=== PATIENT | male | born 1970 | race Caucasian/White ===

== ENCOUNTER 2016-08-14 10:41 | Emergency (ER) | payer MEDICARE, OTHER ==
[2016-08-14 11:31] VITALS: TEMP 97.4
--- NOTE | 2016-08-14 11:56 | ED ---
General Adult HPI - General Chief complaint: Extremity Injury, Lower Stated complaint: Fell/hip injury Time Seen by Provider: 08/14/16 11:35 Source: patient, family, RN notes reviewed Mode of arrival: wheelchair Limitations: no limitations - History of Present Illness Initial comments: Chief complaint and history of present illness is a 46-year-old male who is here with his . Patient reports approximately 10 days ago while at home is standing on a chair. He fell off landing on the cement floor. Complains of pain to his left hip area. And sciatic type pain that became progressively worse over the past week. Patient reports she did go to [facility] days ago. He told them that he had been told that he needed to have back surgery which he never did. They suggested following up the chronic pain clinic. He was placed on [place] which caused him to vomit. - Related Data Home Medications Medication Instructions Recorded Confirmed Insulin Aspart [NovoLOG] 10 unit SQ AC-TID 02/19/15 08/14/16 Insulin Glargine [Lantus] 50 unit SQ HS 02/19/15 08/14/16 Gabapentin [Neurontin] 800 mg PO TID 02/01/16 08/14/16 Ibuprofen [Motrin] 800 mg PO Q8HR 02/01/16 08/14/16 Enalapril Maleate [Vasotec] 20 mg PO BID 02/18/16 08/14/16 Albuterol Inhaler [Ventolin Hfa 1 - 2 puff INHALATION RT-Q6H PRN 08/14/16 Inhaler] Tiotropium [place] [Spiriva] 1 cap INHALATION RT-DAILY 08/14/16 08/14/16 Previous Rx's Medication Instructions Recorded Acetaminophen-Codeine 300-30mg 1 tab PO Q4H PRN #20 tablet 08/14/16 [Tylenol #3] Ondansetron Odt [Zofran ODT] 4 mg PO Q8HR PRN #5 tab 08/14/16 methylPREDNISolone Dose Pack 4 mg PO DIRECTED #21 package 08/14/16 [Medrol Dose Pack] Allergies Allergy/AdvReac Type Severity Reaction Status Date / Time Sulfa (Sulfonamide Allergy Rash/Hives Verified 08/14/16 13:03 Antibiotics) hydrocodone [From [place]] AdvReac Nausea & Verified 08/14/16 13:03 Vomiting Review of Systems ROS Statement: Those systems with pertinent positive or pertinent negative responses have been documented in the HPI. Review of systems no head ache or visual acuity changes no neck pain no upper body pain. He has discomfort to the left hip area. Complains of left sciatic type distribution. Denies any significant low back pain though he has had chronic back pain. And used to have flares of right sciatic pain. Patient denies any head injury at the time of the fall. Otherwise no nausea no vomiting no dysfunction no foot drop. No complaints of any weakness or inability control stool or urine. All systems are reviewed Past medical problems significant for angina, insulin-dependent diabetes mellitus, and hypertension. The patient's surgeries include umbilical hernia repair, cervical fusion, ingrown toenail. Family history significant for cancers and include brain, colon and breast. Patient reports his father age 40 colon cancer. Patient was strongly encouraged to have a colonoscopy for evaluation as soon as he possibly can. He is to arrange through his family doctor. Increase incidence of family related cancers discussed with the patient , he states he is aware of this. ALLERGY sulfa. Encouraged not to smoke. ROS Other: All systems not noted in ROS Statement are negative. Past Medical History Past Medical History: Chest Pain / Angina, Diabetes Mellitus, Hypertension History of Any Multi-Drug Resistant Organisms: None Reported Past Surgical History: Hernia Repair, Orthopedic Surgery Additional Past Surgical History / Comment(s): toe surg (ingrown toenails removed on bilaeral big toes, cervical fusion Past Anesthesia/Blood Transfusion Reactions: No Reported Reaction Past Psychological History: Anxiety, Bipolar Additional Psychological History / Comment(s): pt. states he used to be on buspar for anxiety but has stopped taking it and stopped seeing his psychiatrist Smoking Status: Current every day smoker Past Alcohol Use History: Occasional Past Drug Use History: None Reported - Past Family History Father Family Medical History: Cancer Additional Family Medical History / Comment(s): colon cancer Mother Family Medical History: Cancer Additional Family Medical History / Comment(s): brain cancer Brother(s) Family Medical History: Diabetes Mellitus Additional Family Medical History / Comment(s): pt. states his brother from complications related to diabetes Sister(s) Family Medical History: Cancer Additional Family Medical History / Comment(s): pts. younger sister has breast cancer General Exam - General Exam Comments Initial Comments: General: The patient is awake and alert, complaining of pain to his left hip area, caused by falling off a chair over 10 days ago. Also some left-sided sciatic type distribution lateral left thigh. Vital signs show temperature 97.4 pulse 92 respiratory rate 18 pulse ox 99% room air blood pressure 124/84. Minimally elevated systolic diastolic noted. Patient will follow-up with his family physician. Eye: Pupils are equal, round and reactive to light, extra-ocular movements are intact ; there is normal conjunctiva bilaterally. No signs of icterus. Neck: The neck is supple, there is no tenderness Cardiovascular: There is a regular rate and rhythm. No murmur, rub or gallop is appreciated. Respiratory: Lungs are clear to auscultation, respirations are non-labored, breath sounds are equal. No wheezes, stridor, rales, or rhonchi. Gastrointestinal: Soft, non-distended, non-tender abdomen without masses or organomegaly noted. There is no rebound or guarding present. No CVA tenderness. Bowel sounds are unremarkable. Surgical scar for umbilical hernia repair noted. Nontender Back: There is no tenderness to palpation in the midline. There is no obvious deformity. No rashes noted. Past history of chronic low back pain. Today he has discomfort sciatic type distribution down the lateral left leg. Also left hip pain. Palpation of the lumbar spine negative for any pain. Musculoskeletal: Pain to his left hip area. No bruising noted. Range of motion is decreased secondary to pain. Patient fell from a chair 10 days ago at his home. Neurovascular status of the foot intact. No pain to the toes ankle or knee. Complains discomfort radiates down the lateral aspect of his left leg. Neurological: No focal or lateralizing findings. History of right sciatica which is not bothering him now. He does have sciatic distribution to the lateral aspect with discomfort left thigh area. No complaint of any numbness or tingling. No foot drop. No complaint of loss of control of stool. Able to urinate without difficulty. Limitations: no limitations Course Vital Signs 08/14/16 08/14/16 11:29 12:51 Temperature 97.4 F L Pulse Rate 92 74 Respiratory 18 16 Rate Blood Pressure 124/84 131/77 O2 Sat by Pulse 99 100 Oximetry Medical Decision Making - Medical Decision Making X-ray of the left hip was done and reviewed by radiologist his impression is no fracture dislocation is evident. As read by Dr. Tolliver X-ray of the lumbar spine were done and reviewed radiologist his impression is that there is no significant interval change. Bone mineralization, vertebral body height is maintained. Spondylolysis present bilaterally at L4, there is no anterolisthesis grade 1 L4-L5. Retrolisthesis grade 1 L5-S1. Loss of disc height present L4-L5 and L5-S1. Sclerosis present at the posterior elements compatible with facet arthropathy. 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 As read by Dr. Tolliver The patient be placed on Medrol Dosepak and Tylenol threes. He states the Motrin is not helping hydrocodone makes him vomit. He will also be given a prescription for Zofran told to take pills with food. Advised follow-up with his family physician. And reminded to get a colonoscopy because a strong family histor of colon cancer. Disposition Clinical Impression: Left sided sciatica, Hip pain, left Disposition: HOME SELF-CARE Condition: Stable Instructions: Lumbar Radiculopathy (ED), Sciatica (ED), Lower Back Exercises ( ED), Hip Pain (ED) Additional Instructions: Take a Medrol Dosepak, Tylenol threes for pain, Zofran for nausea and take with food. Follow-up family physician and get a colonoscopy because a strong family history of colon cancer. Prescriptions: Acetaminophen-Codeine 300-30mg [Tylenol #3] 1 tab PO Q4H PRN #20 tablet PRN Reason: Pain Ondansetron Odt [Zofran ODT] 4 mg PO Q8HR PRN #5 tab PRN Reason: Nausea methylPREDNISolone Dose Pack [Medrol Dose Pack] 4 mg PO DIRECTED #21 package Time of Disposition: 13:26
--- NOTE | 2016-08-14 12:41 | XR ---
Left hip HISTORY: Trauma and pain 2 views of the left hip No comparisons Bone mineralization, joint spaces and alignment are maintained IMPRESSION: No fracture or dislocation is evident.
--- NOTE | 2016-08-14 12:49 | XR ---
Lumbosacral spine HISTORY: Trauma, back pain 5 views of the lumbosacral spine correlated to previous exam 17 Nov 2015 There is no significant interval change. Bone mineralization, vertebral body height is maintained. Sp ondylolysis present bilaterally at L4. There is an anterolisthesis grade 1 L4-5. Retrolisthesis grade 1 L5-S1. Loss of disc height present at L4-5, L5-S1. Sclerosis present in the posterior elements com patible with facet arthropathy. IMPRESSION: Spondylolysis bilaterally at L4. Degenerative disc disease.
[2016-08-14 12:52] VITALS: BP 131/77; PULSE 74; RESP 16
== END 2016-08-14 14:08 | disposition home or self-care (01) ==
LOC: EC 10:41
DX: M54.32 Sciatica, left side (principal); M25.552 Pain in left hip; E11.9 Type 2 diabetes mellitus without complications; I10 Essential (primary) hypertension; Z79.4 Long term (current) use of insulin; Z79.899 Other long term (current) drug therapy; Z88.5 Allergy status to narcotic agent; Z88.2 Allergy status to sulfonamides; F17.200 Nicotine dependence, unspecified, uncomplicated; W07.XXXA Fall from chair, initial encounter; Y93.89 Activity, other specified; Y92.009 Unspecified place in unspecified non-institutional (private) residence as the place of occurrence of the external cause; Z80.0 Family history of malignant neoplasm of digestive organs
CPT/HCPCS: 72110; 73502; 99283

== ENCOUNTER → 2016-09-08 | Outpatient (CLI) | payer MEDICARE, OTHER ==
[2016-09-08 11:29] LABS: Blood Urea Nitrogen 11 mg/dL (9-20); Non-African American GFR(MDRD) >60 (>60 ml/min/1.73 sqM)
--- NOTE | 2016-09-08 18:33 | MR ---
EXAMINATION TYPE: MR lumbar spine wo/w con DATE OF EXAM: 09/08/2016 12:20 PM COMPARISON: NONE HISTORY: 46-year-old male with lumbago, low back pain. Technique: Multiplanar, multisequence images of the lumbar spine were obtained before and after admin istration of 15 mL intravenous MultiHance gadolinium contrast. FINDINGS: Vertebral body heights are preserved. No suspicious bone marrow replacement. Conus medullaris is normal. There is degenerative disc disease at L4-L5 and L5-S1 characterized by mild disc space narrowing, dis c desiccation, diffuse disc bulging. Posterior annular fissure at L5-S1. There are bilateral pars interarticularis defects at L4 with a prominent grade 1 L4-L5 anterolisthesi s. Otherwise, alignment is maintained. From T12 through L2 levels, no spinal canal or neuroforaminal stenosis. At L2-L3, there is mild bulging disc minimally encroaching onto the inferior neuroforamen on the left . No spinal canal stenosis. At L3-L4, there is mild bulging disc encroaching onto the inferior bilateral neural foramina. No spin al canal stenosis. At L4-L5, there is bilateral pars defects at L4 with grade 1 anterolisthesis and hypertrophic facet a rthropathy and a 1 cm synovial cyst posteriorly on the right and 4 mm on the left.. Changes result in moderate bilateral neuroforaminal stenosis with possible impingement of the exiting L4 nerve roots. At L5-S1, there is a central disc protrusion with posterior annular fissure and mild facet degenerati ve change. This material closely approaches the traversing right S1 nerve root. No significant spinal canal or neuroforaminal stenosis. There is no suspicious enhancement within the spinal canal. Enhancement of a thin filum terminale is of uncertain clinical significance. No prevertebral or paravertebral soft tissue abnormality. IMPRESSION: 1. Bilateral L4 pars defects with prominent grade 1 anterolisthesis at L4-L5. 2. Marked hypertrophic facet arthropathy at L4-L5. These changes contribute to moderate bilateral channing roforaminal stenosis at this level with possible impingement of the exiting L4 nerve roots. No spinal canal stenosis. 3. Degenerative disc disease at both L4-L5 and L5-S1. There is a small central disc herniation at L5- S1 with an annular fissure.
== END ==
LOC: RADMRIMAIN 10:46
PROVIDERS: ATTEND Family Medicine
DX: M99.73 Connective tissue and disc stenosis of intervertebral foramina of lumbar region (principal); M43.16 Spondylolisthesis, lumbar region; M51.17 Intervertebral disc disorders with radiculopathy, lumbosacral region; M46.86 Other specified inflammatory spondylopathies, lumbar region; E11.9 Type 2 diabetes mellitus without complications
CPT/HCPCS: 82565; 84520; 72158; A9577

== ENCOUNTER → 2016-10-02 | Outpatient (CLI) | payer MEDICARE, OTHER ==
[2016-09-27 10:08] VITALS: BMI 25.1
[2016-10-02 13:37] VITALS: BP 135/87; PULSE 97; RESP 18; TEMP 98.2
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
== END ==
LOC: PNWHC3 13:08
PROVIDERS: ATTEND Specialist
DX: M51.36 Other intervertebral disc degeneration, lumbar region (principal); M47.816 Spondylosis without myelopathy or radiculopathy, lumbar region; M46.86 Other specified inflammatory spondylopathies, lumbar region; E11.40 Type 2 diabetes mellitus with diabetic neuropathy, unspecified; I20.9 Angina pectoris, unspecified; J44.9 Chronic obstructive pulmonary disease, unspecified; I10 Essential (primary) hypertension; F41.9 Anxiety disorder, unspecified; F31.9 Bipolar disorder, unspecified; Z87.891 Personal history of nicotine dependence; Z79.4 Long term (current) use of insulin; Z79.899 Other long term (current) drug therapy; Z88.2 Allergy status to sulfonamides
CPT/HCPCS: 80307 ×2; G0463; 99211

== ENCOUNTER 2016-11-07 05:58 | Day surgery (SDC) | payer SELFPAY ==
[2016-11-06 08:48] VITALS: BMI 24.3
[2016-11-07 06:31] VITALS: TEMP 98.2
[2016-11-07] MEDS ORDERED: LACTATED RINGERS 1,000 ML IV ONE (06:41)
[2016-11-07] MEDS ORDERED: LIDOCAINE 1% 20 ML VIAL (10MG/ML) FOR IV START INTRADERMA ONE (06:41)
[2016-11-07 06:57] LABS: Glucose,Whole Blood 100 mg/dL (75-99)
[2016-11-07] MEDS ORDERED: fentaNYL (PF) 50 MCG/ML 2 ML AMP ONE (07:05)
[2016-11-07] MEDS ORDERED: MIDAZOLAM 2 MG/2 ML VIAL ONE (07:05)
[2016-11-07] MEDS ORDERED: BUPIVACAINE (PF) 0.5% 30 ML VIAL ONE (07:05)
[2016-11-07] MEDS ORDERED: LACTATED RINGERS 1,000 ML IV SCH (07:15)
--- NOTE | 2016-11-07 07:33 | P.PCN ---
Date of Procedure: 11/07/16 Preoperative Diagnosis: Lumbar spondylosis without myelopathy Postoperative Diagnosis: Same as above Procedure(s) Performed: Bilateral lumbar medial branch block under fluoroscopic guidance Anesthesia: other (Moderate sedation with 2 mg of Versed and 100 g of IV fentanyl) Surgeon: Reed Price Pathology: none sent Condition: stable Disposition: PACU Description of Procedure: The patient was seen in preop holding area consent was obtained then he was brought into the procedure room and placed in prone position. Skin was prepped with ChloraPrep and draped in a sterile manner. Lidocaine 1% was used to numb the skin up at the target points that were chosen as follows: For the L5-S1 level which corresponds to the dorsal ramus of L5 the target points were the superior medial aspect of the sacral ala on each side of the spine on the AP view of fluoroscopy. For the L2,L3 and L4 medial branches the target points were at the connection between the transverse process and the superior articular process of L3,L4 and L5 vertebra respectively on the oblique view of fluoroscopy. I used 22-gauge 3-1/2 inch Quincke spinal needle for this procedure and after bone at the target points mentioned above I injected Marcaine 0.5% to 1 mL at each level. Patient tolerated procedure well. Steroids were not given during this procedure.
[2016-11-07] MEDS ORDERED: IV FLUID CONTINUATION 1,000 ML IV ONE (07:36)
[2016-11-07 07:39] VITALS: RESP 16
[2016-11-07 07:46] LABS: Glucose,Whole Blood 104 mg/dL (75-99)
[2016-11-07 07:54] VITALS: BP 126/93; PULSE 81
--- NOTE | 2016-11-08 10:07 | FL ---
EXAMINATION TYPE: FL guided pain mgmt statistic DATE OF EXAM: 11/07/2016 7:34 AM HISTORY: Flouroscopy time 7 seconds of fluoroscopy provided. IMPRESSION: 1. Fluoroscopy time.
== END 2016-11-07 08:10 | disposition home or self-care (01) ==
LOC: ORPAIN 05:58
PROVIDERS: ATTEND Anesthesiology
DX: M47.816 Spondylosis without myelopathy or radiculopathy, lumbar region (principal); Z88.5 Allergy status to narcotic agent; Z88.2 Allergy status to sulfonamides
CPT/HCPCS: 64493; 64494; 64495; 99152; J2250; J3010

== ENCOUNTER 2016-11-23 07:28 | Day surgery (SDC) | payer MEDICARE, OTHER ==
[2016-11-22 10:09] VITALS: BMI 24.3
[~2016-11-23 07:28] MED LIST: LACTATED RINGERS 1,000 ML IV SCH
[2016-11-23 08:01] VITALS: RESP 16; TEMP 98
[2016-11-23] MEDS ORDERED: LIDOCAINE 1% 20 ML VIAL (10MG/ML) FOR IV START INTRADERMA ONE (08:08)
[2016-11-23] MEDS ORDERED: MIDAZOLAM 2 MG/2 ML VIAL ONE (08:12)
[2016-11-23] MEDS ORDERED: BUPIVACAINE (PF) 0.5% 30 ML VIAL ONE (08:12)
[2016-11-23] MEDS ORDERED: TRIAMCINOLONE ACETONIDE 40 MG/ML 1 ML VIAL ONE (08:12)
[2016-11-23] MEDS ORDERED: fentaNYL (PF) 50 MCG/ML 2 ML AMP ONE (08:12)
--- NOTE | 2016-11-23 08:32 | P.PCN ---
Date of Procedure: 11/23/16 Procedure(s) Performed: PREOPERATIVE DIAGNOSIS : 1- Lumbar spondylosis with Facet Arthropathy without myelopathy . 2- Lumber degenerative disc disease POSTOPERATIVE DIAGNOSIS: 1- Lumbar spondylosis with Facet Arthropathy without myelopathy . 2- Lumber degenerative disc disease PROCEDURE: Diagnostic bilateral L3 -4 , L4 -5 , and L5-S1 medial branch block under fluoroscopy #2 ANESTHESIA: Local with 1% lidocaine 6 ml ; IV sedation with Versed 2 mg and Fentanyl 100 mcg. EBL: Minimal COMPLICATION: None. IV FLUIDS: 100 mL of normal saline. PROCEDURE INDICATION: Chronic low back pain secondary to Facet arthropathy unresponsive to conservative treatment. PROCEDURE DESCRIPTION: the patient was seen and identified in the preop holding area , risks and benefits and possible complications of the procedure and alternative were discussed with the patient, and the patient agreed to proceed with the procedure and signed the consent IV was started and vital signs monitored during the procedure and fluoroscopy was used to maximize the benefit and accuracy of the needle placement, and sedation was given to decrease patient anxiety, patient was taken to the procedure room and placed in prone position vital signs monitored in the back prepped with chlorhexidine X3 then under strict sterile technique using a right oblique fluoroscopy ,the junction of the transverse process and the superior articulating process of the right L3- 4 , L4- 5, and L5-S1 vertebra which corresponding to the fluoroscopy image of the eye of the Scott dog on the block side for the medial branches and subsequently , after local infiltration of skin and subcu tissuies with lidocaine 1% one mL at each level ,then 22- gauge Quincke-type needles , 3 needle was used , each one of them placed at the junction of the base of the transverse process and the superior articular process at the appropriate level, and the needle was advanced until the periosteum contacted, needle placement confirmed with AP oblique and lateral view and after appropriate needle placement confirmed, and after negative aspiration for heme and CSF and there was no paresthesia 1-1/2 mL of Marcaine 0.5% mixed with 20 mg Kenalog , then half mL injected at each level after negative aspiration the needle subsequently removed and the same procedure repeated for the left side at left side at L3-4, L4- 5 and L5-S1 levels. At the end of the procedure and the needles removed and a bandage applied after the skin was cleaned the cleaning solution patient taken to recovery room in stable condition and monitors in the recovery room for 20-30 minutes and discharged home in stable condition after discharge criteria met and patient will follow up with the pain clinic in 2-4 weeks
[2016-11-23] MEDS ORDERED: IV FLUID CONTINUATION 1,000 ML IV ONE (08:38)
--- NOTE | 2016-11-23 08:42 | FL ---
EXAMINATION TYPE: FL guided pain mgmt statistic DATE OF EXAM: 11/23/2016 8:36 AM HISTORY: Flouroscopy time 9 seconds of fluoroscopy provided. IMPRESSION: 1. Fluoroscopy time.
[2016-11-23 08:55] VITALS: BP 122/80; PULSE 80
[2016-11-25 04:45] LABS: Glucose,Whole Blood 91 mg/dL (75-99)
== END 2016-11-23 09:09 | disposition home or self-care (01) ==
LOC: ORPAIN 07:28
PROVIDERS: ATTEND Specialist
DX: G89.29 Other chronic pain (principal); M51.36 Other intervertebral disc degeneration, lumbar region; M47.816 Spondylosis without myelopathy or radiculopathy, lumbar region; M46.96 Unspecified inflammatory spondylopathy, lumbar region; I10 Essential (primary) hypertension; E11.9 Type 2 diabetes mellitus without complications; Z88.2 Allergy status to sulfonamides; Z88.5 Allergy status to narcotic agent
CPT/HCPCS: 64493; 64494; 64495; 99152; J2250; J3301; J3010

== ENCOUNTER → 2016-12-18 | Outpatient (CLI) | payer OTHER ==
[2016-12-18 14:05] VITALS: BP 123/88; PULSE 82; RESP 16; TEMP 98.3
--- NOTE | 2016-12-18 14:21 | P.PN ---
Subjective This is follow-up visit for this patient with a history of severe and chronic low back pain secondary to lumbar degenerative disc disease, lumbar facet arthropathy, we did interventional pain management injection, diagnostic medial branch block 2 patient reported that he get more than 60-70% improvement in his low back pain which is lasted for a couple of days, patient currently on 1- ultram 50 MG EVERY 8 HOURS Patient denies any side effects of the medication, denies excessive drowsiness or sleepiness, denies suicidal ideation, and reports that the current pain medication is NOT helping To control the pain and improve activity of daily living . Patient denies any motor or sensory deficit, denies change in bowel movement or urination, patient denies any fever or night sweats and patient here for follow-up visit and medication refill Objective - Vital Signs Vital signs: Vital Signs Temp 98.3 F 12/18/16 13:52 Pulse 82 12/18/16 13:52 Resp 16 12/18/16 13:52 BP 123/88 12/18/16 13:52 Pulse Ox 97 12/18/16 13:52 Intake & Output 12/17/16 12/18/16 12/18/16 18:59 06:59 18:59 Weight 77.111 kg - Exam Physical Examinations : 1-Constitutiona : Cooperative , not in acute distress . 2-HEENT : nech ; supple , no Lymphadenopathy , normal thyroid size . eyes : no ptosis , no icterus, no photophobia . ENT : normal of hearing , normal oropharynx , no Thrush . 3- Respiratory : Chest clear to auscultations Bilaterally , no wheezing , no Rhonchi . 4- Cardiovascular : regular rate and rhythem , S1 , S2 , no S3 , no S4. 5- Gastrointestinal : abdomen soft no tenderness , bowel sounds positive all four quadrents , no organomegally . 6- Genitourinary : Defferred . 7- neurologic : Cranial nerve II to XII intact , no focal neurological deffecit . 8-psychatric : alert , oriented X 3 , appropriate affect , intact judgment and insight . 9-Lymphatic : no Lymphadenopathy . 10- musculoskeltal : , Lumber spine = normal moter stegnth lower extremities ,thigh and legs .5/5 deep tendon reflexes : normal Knee Jerk , normal ankle Jerk . positive lumber facet Loading Test strait leg raising test positive at 30 degree , RT ,LT , Fabere test positive RT and positive LT . Assessment and Plan Plan: Assessment and plan = - Chronic low back pain secondary to lumbar spondylosis with facet arthropathy without myelopathy Patient had a good result after the diagnostic medial branch block - diagnoses , prognosis, and treatment options including but not limited to physical therapy , surgical interventions, interventional therapies and medication management including narcotics and adjuvant medication were discussed with the patient and all questions answered to the patient's satisfaction. -medication refile =1- Ultram 50 mg every 8 hours dispense 90 with 1 refill -procedure= radiofrequency ablation median branch L3 4/L4 5/L5-S1 , we'll do the left side first and will do on the right side after that Time with Patient: Less than 30
== END | disposition home or self-care (01) ==
LOC: PNWHC3 12:56
PROVIDERS: ATTEND Specialist
DX: M47.816 Spondylosis without myelopathy or radiculopathy, lumbar region (principal); M46.96 Unspecified inflammatory spondylopathy, lumbar region; G89.29 Other chronic pain; Z79.899 Other long term (current) drug therapy
CPT/HCPCS: 99211

== ENCOUNTER 2017-01-24 06:12 | Day surgery (SDC) | payer OTHER ==
[2017-01-21 16:05] VITALS: BMI 24.0
[2017-01-24 06:49] VITALS: RESP 16; TEMP 86.6
[2017-01-24 06:49] LABS: Glucose,Whole Blood 101 mg/dL (75-99)
[2017-01-24] MEDS ORDERED: LIDOCAINE 1% 20 ML VIAL (10MG/ML) FOR IV START INTRADERMA ONE (06:49)
--- NOTE | 2017-01-24 07:54 | P.PCN ---
Date of Procedure: 01/24/17 Preoperative Diagnosis: Lumbar Spondylosis without myelopathy Postoperative Diagnosis: Same as above Procedure(s) Performed: Left lumbar medial branch radiofrequency ablation under fluoroscopic guidance Implants: Anesthesia: MAC Surgeon: Reed Price Pathology: none sent Condition: stable Disposition: PACU Indications for Procedure: Operative Findings: Description of Procedure: The patient was seen in the preop holding area consent was obtained then he was brought into the procedure room and placed in prone position. Skin was prepped with ChloraPrep and draped in a sterile manner. Lidocaine 1% was used to numb the skin up at the target points that were chosen as follows: For the L5-S1 level which corresponds to the dorsal ramus of L5 the target point was at the superior medial aspect of the sacral ala on the left side of the spine on the AP view of fluoroscopy, and for the L2, L3, and L4 medial branches the target points were the connection between the transverse process and the superior to go process of L3, L4, and L5 vertebra respectively on the left oblique view of fluoroscopy. I used 100 mm 18-gauge in diameter with 10 mm of curved active tip radiofrequency ablation needles for this procedure. AP, oblique, and lateral views of fluoroscopy were used to verify needle tipposition. Motor stimulation showed only local twitches of these needles with no radiation of twitching to the left lower extremity. I prepared a solution of 3 MLS of Marcaine 0.25% +20 mg of Kenalog and 1 mL of the solution was given in each needle. After that radiofrequency ablation was started for 90 seconds at 80C and after the first session of ablation was done the second ablation started after withdrawing the needles by 1 or 2 mm and turning the bevels 180. Patient tolerated procedure well.
[2017-01-24] MEDS ORDERED: IV FLUID CONTINUATION 1,000 ML IV ONE (08:03)
[2017-01-24 08:27] VITALS: BP 118/79
[2017-01-24 08:31] VITALS: PULSE 81
--- NOTE | 2017-01-24 08:58 | FL ---
EXAMINATION TYPE: FL guided pain mgmt statistic DATE OF EXAM: 01/24/2017 HISTORY: Flouroscopy time 12 seconds of fluoroscopy provided. IMPRESSION: 1. Fluoroscopy time.
--- NOTE | 2017-01-28 13:00 | CDI ---
Dear. Dr. Price What type of sedation was used during this procedure? Your Procedure Note states "MAC". Please provide more specificity, such as moderate conscious sedation. This information is needed for correct reporting purposes. Please contact the live study manager if you do not understand what is needed from you-- Rona Gerardo [phone]. Thank you, Pat BAIRD
--- NOTE | 2017-02-22 12:05 | CDI ---
SECOND QUERY REQUEST Dear. Dr. Price What type of sedation was used during this procedure? Your Procedure Note states "MAC". Please provide more specificity, such as moderate conscious sedation. This information is needed for correct reporting purposes. Please contact the pricing manager if you do not understand what is needed from you-- Rona Gerardo [phone]. Thank you, Pat BAIRD
== END 2017-01-24 08:34 | disposition home or self-care (01) ==
LOC: ORPAIN 06:12
PROVIDERS: ATTEND Anesthesiology
DX: M47.816 Spondylosis without myelopathy or radiculopathy, lumbar region (principal); I10 Essential (primary) hypertension; Z88.5 Allergy status to narcotic agent; Z88.2 Allergy status to sulfonamides
CPT/HCPCS: 99152; 99153; 64635; 64636; J2250; J3301; J3010

== ENCOUNTER 2017-02-25 06:11 | Day surgery (SDC) | payer MEDICARE, OTHER ==
[2017-02-22 09:27] VITALS: BMI 24.3
[2017-02-25 07:26] VITALS: RESP 16; TEMP 98.3
[2017-02-25] MEDS ORDERED: LIDOCAINE 1% 20 ML VIAL (10MG/ML) FOR IV START INTRADERMA ONE (07:34)
[2017-02-25 07:35] LABS: Glucose,Whole Blood 105 mg/dL (75-99)
--- NOTE | 2017-02-25 08:34 | P.PCN ---
Date of Procedure: 02/25/17 Preoperative Diagnosis: Lumbar spondylosis without myelopathy Postoperative Diagnosis: Same as above Procedure(s) Performed: Right lumbar medial branch radiofrequency ablation under fluoroscopic guidance for medial branches L2, L3, L4, and the dorsal ramus of L5. Implants: Anesthesia: other (Moderate conscious sedation with IV fentanyl and Versed) Surgeon: Reed Price Pathology: none sent Condition: stable Disposition: PACU Indications for Procedure: Operative Findings: Description of Procedure: The patient was seen in the preop holding area consent was obtained then he was brought into the procedure room and placed in prone position. Skin was prepped with ChloraPrep and draped in a sterile manner. Lidocaine 1% was used to numb the skin up at the target points that were chosen as follows: For the L5-S1 level which corresponds to the dorsal ramus of L5 the target point was at the superior medial aspect of the sacral ala on the right side of the spine on the AP view of fluoroscopy, and for the L2, L3, and L4 medial branches the target points were the connection between the transverse process and the superior articular process of L3, L4, and L5 vertebra respectively on the left oblique view of fluoroscopy. I used 100 mm 18-gauge in diameter with 10 mm of curved active tip radiofrequency ablation needles for this procedure. AP, oblique, and lateral views of fluoroscopy were used to verify needle tip position. Motor stimulation showed only local twitches of these needles with no radiation of twitching to the left lower extremity. I then prepared a solution of 3 MLS of Marcaine 0.25% +10 mg of Decadron and 1 mL of the solution was given in each needle. After that radiofrequency ablation was started for 90 seconds at 80C and after the first session of ablation was done the second ablation started after withdrawing the needles by 1 or 2 mm and turning the bevels 180. Patient tolerated procedure well.
[2017-02-25] MEDS ORDERED: IV FLUID CONTINUATION 1,000 ML IV ONE (08:54)
[2017-02-25 09:31] VITALS: BP 129/77; PULSE 67
--- NOTE | 2017-02-25 09:50 | FL ---
EXAMINATION TYPE: FL guided pain mgmt statistic DATE OF EXAM: 02/25/2017 COMPARISON: NONE HISTORY: Back pain TECHNIQUE: Fluoroscopy. FINDINGS/IMPRESSION: Fluoroscopic guidance was provided during procedure performed by Dr. Price. A total of 39 seconds of fluoroscopic time was utilized during the procedure and 3 spot images was ac quired.
== END 2017-02-25 09:27 | disposition home or self-care (01) ==
LOC: ORPAIN 06:11
PROVIDERS: ATTEND Anesthesiology
DX: M47.816 Spondylosis without myelopathy or radiculopathy, lumbar region (principal); I10 Essential (primary) hypertension; E11.9 Type 2 diabetes mellitus without complications; Z88.5 Allergy status to narcotic agent; Z88.2 Allergy status to sulfonamides
CPT/HCPCS: 99152; 64635; 64636 ×3; J2250; J1100; J3010; 99153

== ENCOUNTER 2017-06-14 10:03 | Emergency (ER) | payer MEDICARE, OTHER ==
[2017-06-14 10:13] VITALS: BP 131/90; PULSE 16; RESP 118; TEMP 97.2
--- NOTE | 2017-06-14 10:56 | ED ---
General Adult HPI - General Chief complaint: Skin/Abscess/Foreign Body Stated complaint: Lump on R arm Time Seen by Provider: 06/14/17 10:30 Source: patient, RN notes reviewed, old records reviewed Mode of arrival: ambulatory Limitations: no limitations - History of Present Illness Initial comments: This is a 47-year-old male to the ER for evaluation repair patient coming in for evaluation of lump on right arm. Patient denies IV drug abuse no recent tattoos. Patient states left began to be noticed as of recently but patient has also noticed it in the past. Thinks it may be increasing in size. Good. No fevers. - Related Data Home Medications Medication Instructions Recorded Confirmed Insulin Aspart [NovoLOG] 10 unit SQ AC-TID PRN 02/19/15 06/14/17 Insulin Glargine [Lantus] 50 unit SQ HS 02/19/15 06/14/17 Enalapril Maleate [Vasotec] 20 mg PO BID 02/18/16 06/14/17 Albuterol Inhaler [Ventolin Hfa 1 - 2 puff INHALATION RT-Q6H PRN 08/14/16 Inhaler] Tiotropium [place] [Spiriva] 1 dose INHALATION RT-DAILY 08/14/16 06/14/17 traMADol HCl [Ultram] 50 mg PO Q8HR PRN 10/02/16 06/14/17 Allergies Allergy/AdvReac Type Severity Reaction Status Date / Time Sulfa (Sulfonamide Allergy Rash/Hives Verified 06/14/17 10:50 Antibiotics) hydrocodone [From [place]] AdvReac Nausea & Verified 06/14/17 10:50 Vomiting Review of Systems ROS Statement: Those systems with pertinent positive or pertinent negative responses have been documented in the HPI. ROS Other: All systems not noted in ROS Statement are negative. Past Medical History Past Medical History: Chest Pain / Angina, Diabetes Mellitus, Hypertension Additional Past Medical History / Comment(s): lower back pain History of Any Multi-Drug Resistant Organisms: None Reported Past Surgical History: Hernia Repair, Orthopedic Surgery Additional Past Surgical History / Comment(s): toe surg /ingrown toenails removed on bilaeral big toes, cervical fusion; pain procedures Past Anesthesia/Blood Transfusion Reactions: No Reported Reaction Past Psychological History: Anxiety Smoking Status: Current every day smoker Past Alcohol Use History: None Reported Past Drug Use History: None Reported - Past Family History Father Family Medical History: Cancer Additional Family Medical History / Comment(s): colon cancer Mother Family Medical History: Cancer Additional Family Medical History / Comment(s): brain cancer Brother(s) Family Medical History: Diabetes Mellitus Additional Family Medical History / Comment(s): pt. states his brother from complications related to diabetes Sister(s) Family Medical History: Cancer Additional Family Medical History / Comment(s): pts. younger sister has breast cancer General Exam - General Exam Comments Initial Comments: Lipoma antecubital area right arm Limitations: no limitations General appearance: alert, in no apparent distress Head exam: Present: atraumatic, normocephalic, normal inspection Eye exam: Present: normal appearance, PERRL, EOMI. Absent: scleral icterus, conjunctival injection, periorbital swelling ENT exam: Present: normal exam, mucous membranes moist Neck exam: Present: normal inspection. Absent: tenderness, meningismus, lymphadenopathy Respiratory exam: Present: normal lung sounds bilaterally. Absent: respiratory distress, wheezes, rales, rhonchi, stridor Cardiovascular Exam: Present: regular rate, normal rhythm, normal heart sounds. Absent: systolic murmur, diastolic murmur, rubs, gallop, clicks GI/Abdominal exam: Present: soft, normal bowel sounds. Absent: distended, tenderness, guarding, rebound, rigid Extremities exam: Present: normal inspection, full ROM, normal capillary refill. Absent: tenderness, pedal edema, joint swelling, calf tenderness Back exam: Present: normal inspection Neurological exam: Present: alert, oriented X3, CN II-XII intact Psychiatric exam: Present: normal affect, normal mood Skin exam: Present: warm, dry, intact, normal color. Absent: rash Course Vital Signs 06/14/17 10:10 Temperature 97.2 F L Pulse Rate 16 L Respiratory 118 H Rate Blood Pressure 131/90 O2 Sat by Pulse 97 Oximetry Medical Decision Making - Medical Decision Making 47 male to the ER for evaluation of right arm lump, mass, patient consult regarding lipoma can be discharged home Disposition Clinical Impression: Lipoma Disposition: HOME SELF-CARE Condition: Good Instructions: [place] (ED) Referrals: Ashu Mitchell DO [Doctor of Osteopathic Medicine] - 1-2 days
== END 2017-06-14 11:02 | disposition home or self-care (01) ==
LOC: EC 10:03
DX: D17.21 Benign lipomatous neoplasm of skin and subcutaneous tissue of right arm (principal); E11.9 Type 2 diabetes mellitus without complications; I10 Essential (primary) hypertension; F17.200 Nicotine dependence, unspecified, uncomplicated; Z79.4 Long term (current) use of insulin; Z79.899 Other long term (current) drug therapy; Z88.2 Allergy status to sulfonamides; Z88.5 Allergy status to narcotic agent
CPT/HCPCS: 99283

== ENCOUNTER 2017-09-24 10:58 | Emergency (ER) | payer MEDICARE, OTHER ==
[2017-09-24 11:48] LABS: Appearance,Urine Clear (Clear); Basophils # (A) 0.1 k/uL (0-0.2); Basophils % (A) 1 %; Bilirubin,Urine Negative (Negative); Blood,Urine Negative (Negative); Color,Urine Light Yellow; Eosinophils # (A) 0.2 k/uL (0-0.7); Eosinophils % (A) 3 %; Glucose,Urine (UA) Negative (Negative); HCT 45.9 % (39.0-53.0); HGB 16.2 gm/dL (13.0-17.5); Ketones,Urine Negative (Negative); Leukocyte Esterase,Urine Negative (Negative); Lymphocytes # (A) 1.8 k/uL (1.0-4.8); Lymphocytes % (A) 22 %; MCH 29.6 pg (25.0-35.0); MCHC 35.2 g/dL (31.0-37.0); MCV 84.1 fL (80.0-100.0); Mean Platelet Volume 7.6; Monocytes # (A) 0.4 k/uL (0-1.0); Monocytes % (A) 5 %; Neutrophils # (A) 5.8 k/uL (1.3-7.7); Neutrophils % (A) 69 %; Nitrite,Urine Negative (Negative); PH, Urine 7.5 (5.0-8.0); Platelet Count 223 k/uL (150-450); Protein,Urine Negative (Negative); RBC 5.46 m/uL (4.30-5.90); RDW 12.5 % (11.5-15.5); Specific Gravity,Urine 1.004 (1.001-1.035); Urobilinogen,Urine <2.0 mg/dL (<2.0); WBC 8.4 k/uL (3.8-10.6)
[2017-09-24 11:50] LABS: ALT 35 U/L (21-72); AST 17 U/L (17-59); Albumin 4.1 g/dL (3.5-5.0); Alkaline Phosphatase 89 U/L (38-126); Anion Gap 9 mmol/L; Blood Urea Nitrogen 8 mg/dL (9-20); Calcium 9.4 mg/dL (8.4-10.2); Carbon Dioxide 27 mmol/L (22-30); Chloride 105 mmol/L (98-107); Glucose 95 mg/dL (74-99); Magnesium 1.8 mg/dL (1.6-2.3); Sodium 141 mmol/L (137-145); Total Bilirubin 0.4 mg/dL (0.2-1.3); Total Protein 6.8 g/dL (6.3-8.2)
[2017-09-24 12:03] LABS: Creatine Kinase 108 U/L (55-170)
[2017-09-24 12:15] LABS: Creatine Kinase MB 0.5 ng/mL (0.0-2.4); Troponin I <0.012 ng/mL (0.000-0.034)
--- NOTE | 2017-09-24 13:07 | XR ---
EXAMINATION TYPE: XR chest 2V DATE OF EXAM: 09/24/2017 COMPARISON: 03/25/2016 TECHNIQUE: PA and lateral views submitted. HISTORY: Chest pain FINDINGS: The lungs are clear and there is no pneumothorax, pleural effusion, or focal pneumonia. IMPRESSION: 1. No acute process.
[2017-09-24 13:16] LABS: Partial Thromboplastin Time 24.8 sec (22.0-30.0); Prothrombin Time 9.6 sec (9.0-12.0)
[2017-09-24] MEDS ORDERED: RX INFO: IV CONTRAST WAS GIVEN 1 EACH MISC MISCELLANE PRN (13:31)
--- NOTE | 2017-09-24 13:41 | ED ---
General Adult HPI - General Chief complaint: Chest Pain Stated complaint: Chest pain/side pain Time Seen by Provider: 09/24/17 12:35 Source: patient, RN notes reviewed, old records reviewed Mode of arrival: ambulatory Limitations: no limitations - History of Present Illness Initial comments: 47-year-old male presenting for evaluation of left lateral chest pain. Pain has been intermittent over the past several days, worsening in the past 24 hours. Described as sharp stabbing pain. Yesterday evening, patient noted his heart rate was in the 160s on his wrist watch which takes his heart rate. He did have some dyspnea associated with this. No central chest pain. No lower extremity pain or swelling. No calf tenderness. No history nausea vomiting or diarrhea. No abdominal pain. No cough or fever. Patient is a type II diabetic. No history of coronary artery disease. Patient is pain-free at the time my evaluation. - Related Data Home Medications Medication Instructions Recorded Confirmed Insulin Aspart [NovoLOG] See Protocol SQ AC-TID PRN 02/19/15 09/24/17 Insulin Glargine [Lantus] 50 unit SQ HS 02/19/15 09/24/17 Enalapril Maleate [Vasotec] 20 mg PO BID 02/18/16 09/24/17 Albuterol Inhaler [Ventolin Hfa 1 - 2 puff INHALATION RT-Q6H PRN 08/14/16 Inhaler] Tiotropium [place] [Spiriva] 1 dose INHALATION RT-DAILY 08/14/16 09/24/17 traMADol HCl [Ultram] 50 mg PO Q8HR PRN 10/02/16 09/24/17 Allergies Allergy/AdvReac Type Severity Reaction Status Date / Time Sulfa (Sulfonamide Allergy Rash/Hives Verified 09/24/17 12:49 Antibiotics) hydrocodone [From [place]] AdvReac Nausea & Verified 09/24/17 12:49 Vomiting Review of Systems ROS Statement: Those systems with pertinent positive or pertinent negative responses have been documented in the HPI. ROS Other: All systems not noted in ROS Statement are negative. Past Medical History Past Medical History: Chest Pain / Angina, Diabetes Mellitus, Hypertension Additional Past Medical History / Comment(s): lower back pain History of Any Multi-Drug Resistant Organisms: None Reported Past Surgical History: Hernia Repair, Orthopedic Surgery Additional Past Surgical History / Comment(s): toe surg /ingrown toenails removed on bilaeral big toes, cervical fusion; pain procedures Past Anesthesia/Blood Transfusion Reactions: No Reported Reaction Past Psychological History: Anxiety Smoking Status: Current every day smoker Past Alcohol Use History: None Reported Past Drug Use History: None Reported - Past Family History Father Family Medical History: Cancer Additional Family Medical History / Comment(s): colon cancer Mother Family Medical History: Cancer Additional Family Medical History / Comment(s): brain cancer Brother(s) Family Medical History: Diabetes Mellitus Additional Family Medical History / Comment(s): pt. states his brother from complications related to diabetes Sister(s) Family Medical History: Cancer Additional Family Medical History / Comment(s): pts. younger sister has breast cancer General Exam Limitations: no limitations General appearance: alert, in no apparent distress Head exam: Present: atraumatic Eye exam: Present: normal appearance, PERRL ENT exam: Present: normal exam Neck exam: Present: normal inspection. Absent: tenderness, meningismus Respiratory exam: Present: normal lung sounds bilaterally. Absent: respiratory distress, wheezes, chest wall tenderness Cardiovascular Exam: Present: regular rate, normal rhythm GI/Abdominal exam: Present: soft. Absent: distended, tenderness Extremities exam: Present: normal inspection, full ROM, normal capillary refill. Absent: tenderness, pedal edema, calf tenderness Neurological exam: Present: alert, oriented X3, CN II-XII intact. Absent: motor sensory deficit Psychiatric exam: Present: normal affect, normal mood Skin exam: Present: warm, dry, intact. Absent: cyanosis, diaphoretic Course Vital Signs 09/24/17 09/24/17 09/24/17 11:03 12:48 13:46 Temperature 97.0 F L 97.3 F L Pulse Rate 85 78 73 Respiratory 18 18 16 Rate Blood Pressure 145/92 142/93 121/90 O2 Sat by Pulse 98 99 99 Oximetry EKG Findings - EKG Comments: EKG Findings:: EKG shows normal sinus rhythm, ventricular rate 79, LA interval 1 :30, QS duration 100, QTC 435, no signs of ST segment elevation or depression Medical Decision Making - Medical Decision Making 37-year-old male presenting with sharp lateral left-sided chest pain. Intermittent over the past several days. Pain is atypical for coronary artery disease or ischemic pain. Patient did have some mild dyspnea and his watch stated that he was tachycardic in the 160s. Patient has had multiple heart rate while in the emergency department. EKG is negative for ischemic changes. There is concern for PE, this is evaluated with CT angiography which is negative for pulmonary embolus. Blood cell count, stable hemoglobin, normal electrolytes, negative troponin. Urinalysis is clear, no signs of hematuria to support kidney stone. Pain is left lateral chest rather than flank. Chest x- ray negative for focal pneumonia or acute findings. Patient will follow-up with primary care physician, return with any worsening or changing symptoms. - Lab Data Result diagrams: 09/24/17 11:21 09/24/17 11:21 Lab Results 09/24/17 09/24/17 09/24/17 Range/Units 11:21 11:21 11:21 WBC 8.4 (3.8-10.6) k/uL RBC 5.46 (4.30-5.90) m/uL Hgb 16.2 (13.0-17.5) gm/dL Hct 45.9 (39.0-53.0) % MCV 84.1 (80.0-100.0) fL MCH 29.6 (25.0-35.0) pg MCHC 35.2 (31.0-37.0) g/dL RDW 12.5 (11.5-15.5) % Plt Count 223 (150-450) k/uL Neutrophils % 69 % Lymphocytes % 22 % Monocytes % 5 % Eosinophils % 3 % Basophils % 1 % Neutrophils # 5.8 (1.3-7.7) k/uL Lymphocytes # 1.8 (1.0-4.8) k/uL Monocytes # 0.4 (0-1.0) k/uL Eosinophils # 0.2 (0-0.7) k/uL Basophils # 0.1 (0-0.2) k/uL PT (9.0-12.0) sec INR (<1.2) APTT (22.0-30.0) sec Sodium 141 (137-145) mmol/L Potassium 4.0 (3.5-5.1) mmol/L Chloride 105 (98-107) mmol/L Carbon Dioxide 27 (22-30) mmol/L Anion Gap 9 mmol/L BUN 8 L (9-20) mg/dL Creatinine 0.88 (0.66-1.25) mg/dL Est GFR (CKD-EPI)AfAm >90 (>60 ml/min/1.73 sqM) Est GFR (CKD-EPI)NonAf >90 (>60 ml/min/1.73 sqM) Glucose 95 (74-99) mg/dL Calcium 9.4 (8.4-10.2) mg/dL Magnesium 1.8 (1.6-2.3) mg/dL Total Bilirubin 0.4 (0.2-1.3) mg/dL AST 17 (17-59) U/L ALT 35 (21-72) U/L Alkaline Phosphatase 89 (38-126) U/L Total Creatine Kinase 108 (55-170) U/L CK-MB (CK-2) 0.5 (0.0-2.4) ng/mL CK-MB (CK-2) Rel Index 0.5 Troponin I <0.012 (0.000-0.034) ng/mL Total Protein 6.8 (6.3-8.2) g/dL Albumin 4.1 (3.5-5.0) g/dL Urine Color Urine Appearance (Clear) Urine pH (5.0-8.0) Ur Specific [place] (1.001-1.035) Urine Protein (Negative) Urine Glucose (UA) (Negative) Urine Ketones (Negative) Urine Blood (Negative) Urine Nitrite (Negative) Urine Bilirubin (Negative) Urine Urobilinogen (<2.0) mg/dL Ur Leukocyte Esterase (Negative) 09/24/17 09/24/17 Range/Units 11:21 12:45 WBC (3.8-10.6) k/uL RBC (4.30-5.90) m/uL Hgb (13.0-17.5) gm/dL Hct (39.0-53.0) % MCV (80.0-100.0) fL MCH (25.0-35.0) pg MCHC (31.0-37.0) g/dL RDW (11.5-15.5) % Plt Count (150-450) k/uL Neutrophils % % Lymphocytes % % Monocytes % % Eosinophils % % Basophils % % Neutrophils # (1.3-7.7) k/uL Lymphocytes # (1.0-4.8) k/uL Monocytes # (0-1.0) k/uL Eosinophils # (0-0.7) k/uL Basophils # (0-0.2) k/uL PT 9.6 (9.0-12.0) sec INR 1.0 (<1.2) APTT 24.8 (22.0-30.0) sec Sodium (137-145) mmol/L Potassium (3.5-5.1) mmol/L Chloride (98-107) mmol/L Carbon Dioxide (22-30) mmol/L Anion Gap mmol/L BUN (9-20) mg/dL Creatinine (0.66-1.25) mg/dL Est GFR (CKD-EPI)AfAm (>60 ml/min/1.73 sqM) Est GFR (CKD-EPI)NonAf (>60 ml/min/1.73 sqM) Glucose (74-99) mg/dL Calcium (8.4-10.2) mg/dL Magnesium (1.6-2.3) mg/dL Total Bilirubin (0.2-1.3) mg/dL AST (17-59) U/L ALT (21-72) U/L Alkaline Phosphatase (38-126) U/L Total Creatine Kinase (55-170) U/L CK-MB (CK-2) (0.0-2.4) ng/mL CK-MB (CK-2) Rel Index Troponin I (0.000-0.034) ng/mL Total Protein (6.3-8.2) g/dL Albumin (3.5-5.0) g/dL Urine Color Light Yellow Urine Appearance Clear (Clear) Urine pH 7.5 (5.0-8.0) Ur Specific [place] 1.004 (1.001-1.035) Urine Protein Negative (Negative) Urine Glucose (UA) Negative (Negative) Urine Ketones Negative (Negative) Urine Blood Negative (Negative) Urine Nitrite Negative (Negative) Urine Bilirubin Negative (Negative) Urine Urobilinogen <2.0 (<2.0) mg/dL Ur Leukocyte Esterase Negative (Negative) Disposition Clinical Impression: Chest pain Disposition: HOME SELF-CARE Condition: Good Instructions: Chest Pain (ED) Referrals: Savana Tejada MD [Primary Care Provider] - 1-2 days Time of Disposition: 14:39
--- NOTE | 2017-09-24 14:15 | CT ---
EXAMINATION TYPE: CT angio chest DATE OF EXAM: 09/24/2017 COMPARISON: NONE HISTORY: Lt sided chest pain CT DLP: 458 mGycm CONTRAST: CT chest with contrast and 3D reconstruction with MIP imaging is performed with IV Contrast, patient injected with 100 mL of Omnipaque 350. Contrast-enhanced CT of the chest was performed through the course of the pulmonary arteries with tate g and mediastinal window settings submitted. 3D reconstruction with MIP imaging was also performed. PULMONARY ARTERIES: The pulmonary arteries and their major tributaries are patent. I do not see kacie dence for sizable filling defect to suggest pulmonary embolic process. LUNGS: The lungs are clear and free of infiltrate. No evidence for atelectasis. No pulmonary nodule or mass is detected. No pleural effusion. MEDIASTINUM: Thoracic aorta is of normal caliber,however, evaluation is limited given timing of the contrast bolus. If there is concern for thoracic aortic pathology consider SRIKANTH. Correlate clinicall y . The heart is not enlarged. No evidence for mediastinal mass. Several mediastinal lymph nodes not ed without one of which within the AP window measures 1.2 cm in short axis and is of uncertain etiolo gy. HILAR STRUCTURES: No evidence for mass. No hilar lymph nodes greater than 1 cm. UPPER ABDOMEN: No significant abnormality is seen. IMPRESSION: 1. No evidence for Pulmonary embolism at this time.
[2017-09-24 14:47] VITALS: BP 130/89; PULSE 89; RESP 18; TEMP 97.6
== END 2017-09-24 14:50 | disposition home or self-care (01) ==
LOC: EC 10:58
DX: R07.9 Chest pain, unspecified (principal); R06.00 Dyspnea, unspecified; R00.0 Tachycardia, unspecified; I10 Essential (primary) hypertension; E11.9 Type 2 diabetes mellitus without complications; F17.200 Nicotine dependence, unspecified, uncomplicated; Z79.4 Long term (current) use of insulin; Z79.899 Other long term (current) drug therapy; Z88.2 Allergy status to sulfonamides; Z88.5 Allergy status to narcotic agent
CPT/HCPCS: 36415; 93005; 80053; 82550; 82553; 83735; 84484; 85025; 85610; 85730; 81003; 71046; 71275; 99285; Q9967

== ENCOUNTER 2017-09-29 19:15 | Emergency (ER) | payer MEDICARE, OTHER ==
[2017-09-29] MEDS ORDERED: KETOROLAC 30 MG/ML 1 ML VIAL IM STA (21:09)
--- NOTE | 2017-09-29 21:10 | ED ---
General Adult HPI - General Chief complaint: Abdominal Pain Stated complaint: LEFT SIDE PAIN AND RASH Time Seen by Provider: 09/29/17 20:58 Source: patient, RN notes reviewed, old records reviewed Mode of arrival: ambulatory Limitations: no limitations - History of Present Illness Initial comments: 47-year-old male presents for evaluation of left-sided chest pain and rash. Patient was seen in the emergency department proximally 5 days earlier with same complaint. He had no rash at that time. Pain is been worsening, described as a sharp pain. Patient noticed a rash on his left posterior chest wall and left side. Patient denies fever or chills. He does state the pain is constant, sharp, does admit to burning nature. Past medical history diabetes. No central chest pain. No difficulty breathing. No abdominal pain nausea vomiting or diarrhea. - Related Data Home Medications Medication Instructions Recorded Confirmed Insulin Aspart [NovoLOG] See Protocol SQ AC-TID PRN 02/19/15 09/29/17 Insulin Glargine [Lantus] 50 unit SQ HS 02/19/15 09/29/17 Enalapril Maleate [Vasotec] 20 mg PO BID 02/18/16 09/29/17 Albuterol Inhaler [Ventolin Hfa 1 - 2 puff INHALATION RT-Q6H PRN 08/14/16 Inhaler] Tiotropium [place] [Spiriva] 1 dose INHALATION RT-DAILY 08/14/16 09/29/17 traMADol HCl [Ultram] 50 mg PO Q8HR PRN 10/02/16 09/29/17 Previous Rx's Medication Instructions Recorded predniSONE 50 mg PO DAILY #5 tab 09/29/17 valACYclovir HCL [Valacyclovir] 1,000 mg PO Q12HR #14 tab 09/29/17 Allergies Allergy/AdvReac Type Severity Reaction Status Date / Time Sulfa (Sulfonamide Allergy Rash/Hives Verified 09/29/17 20:56 Antibiotics) hydrocodone [From [place]] AdvReac Nausea & Verified 09/29/17 20:56 Vomiting Review of Systems ROS Statement: Those systems with pertinent positive or pertinent negative responses have been documented in the HPI. ROS Other: All systems not noted in ROS Statement are negative. Past Medical History Past Medical History: Chest Pain / Angina, Diabetes Mellitus, Hypertension Additional Past Medical History / Comment(s): lower back pain History of Any Multi-Drug Resistant Organisms: None Reported Past Surgical History: Hernia Repair, Orthopedic Surgery Additional Past Surgical History / Comment(s): toe surg /ingrown toenails removed on bilaeral big toes, cervical fusion; pain procedures Past Anesthesia/Blood Transfusion Reactions: No Reported Reaction Past Psychological History: Anxiety Smoking Status: Current every day smoker Past Alcohol Use History: None Reported Past Drug Use History: None Reported - Past Family History Father Family Medical History: Cancer Additional Family Medical History / Comment(s): colon cancer Mother Family Medical History: Cancer Additional Family Medical History / Comment(s): brain cancer Brother(s) Family Medical History: Diabetes Mellitus Additional Family Medical History / Comment(s): pt. states his brother from complications related to diabetes Sister(s) Family Medical History: Cancer Additional Family Medical History / Comment(s): pts. younger sister has breast cancer General Exam Limitations: no limitations General appearance: alert, in no apparent distress Head exam: Present: atraumatic, normocephalic Eye exam: Present: normal appearance, PERRL ENT exam: Present: normal exam Neck exam: Present: normal inspection. Absent: tenderness Respiratory exam: Present: normal lung sounds bilaterally, chest wall tenderness (Tenderness, with rash). Absent: respiratory distress, wheezes Cardiovascular Exam: Present: regular rate, normal rhythm GI/Abdominal exam: Present: soft. Absent: distended, tenderness, guarding Extremities exam: Present: normal inspection, normal capillary refill Neurological exam: Present: alert, oriented X3, CN II-XII intact. Absent: motor sensory deficit Psychiatric exam: Present: normal affect, normal mood Skin exam: Present: warm, rash, vesicles (Vesicular rash, left thoracic and left lateral thoracic, dermatomal distribution) Course Vital Signs 09/29/17 09/29/17 19:48 21:33 Temperature 97.4 F L 98 F Pulse Rate 79 71 Respiratory 16 18 Rate Blood Pressure 142/88 147/93 O2 Sat by Pulse 97 97 Oximetry Medical Decision Making - Medical Decision Making 47-year-old male presenting with left sided chest pain and rash. Rash is vesicular, isolated to dermatome. Patient is a type II diabetic. He is started on valacyclovir and prednisone. He will follow-up with his primary care physician, return with any worsening or changing symptoms. Disposition Clinical Impression: Herpes zoster Disposition: HOME SELF-CARE Condition: Good Instructions: Shingles (ED) Prescriptions: predniSONE 50 mg PO DAILY #5 tab valACYclovir HCL [Valacyclovir] 1,000 mg PO Q12HR #14 tab Referrals: Savana Tejada MD [Primary Care Provider] - 1-2 days Time of Disposition: 21:07
[2017-09-29 21:34] VITALS: BP 147/93; PULSE 71; RESP 18; TEMP 98
== END 2017-09-29 21:32 | disposition home or self-care (01) ==
LOC: EC 19:15
DX: B02.9 Zoster without complications (principal); R07.89 Other chest pain; E11.9 Type 2 diabetes mellitus without complications; I10 Essential (primary) hypertension; F17.200 Nicotine dependence, unspecified, uncomplicated; Z79.4 Long term (current) use of insulin; Z79.899 Other long term (current) drug therapy; Z88.2 Allergy status to sulfonamides; Z88.5 Allergy status to narcotic agent
CPT/HCPCS: 99284; 96372; J1885

== ENCOUNTER 2018-08-02 08:31 | Emergency (ER) | payer MEDICARE, OTHER ==
[2018-08-02 08:36] VITALS: BP 141/73; PULSE 86; RESP 18; TEMP 98.1
--- NOTE | 2018-08-02 09:15 | ED ---
General Adult HPI - General Chief complaint: ENT Stated complaint: rt eye pain Time Seen by Provider: 08/02/18 08:58 Source: patient, RN notes reviewed, old records reviewed Mode of arrival: ambulatory Limitations: no limitations - History of Present Illness Initial comments: 48-year-old male presenting for evaluation of right eye swelling. Symptoms began 3 days prior. Patient had minor trauma just below the right eye he was struck with a bungee cord. He's had worsening swelling over the past 3 days. Denies pain in the eye itself. There is mild itching and pain surrounding the eye. No cough or cold symptoms. No fever or chills. No dental pain. No ear pain. Patient states he was some mild blurry vision which he believes is secondary to increased drainage. - Related Data Home Medications Medication Instructions Recorded Confirmed Insulin Aspart [NovoLOG] See Protocol SQ AC-TID PRN 02/19/15 09/29/17 Insulin Glargine [Lantus] 50 unit SQ HS 02/19/15 09/29/17 Enalapril Maleate [Vasotec] 20 mg PO BID 02/18/16 09/29/17 Albuterol Inhaler [Ventolin Hfa 1 - 2 puff INHALATION RT-Q6H PRN 08/14/16 Inhaler] Tiotropium [place] [Spiriva] 1 dose INHALATION RT-DAILY 08/14/16 09/29/17 traMADol HCl [Ultram] 50 mg PO Q8HR PRN 10/02/16 09/29/17 Previous Rx's Medication Instructions Recorded predniSONE 50 mg PO DAILY #5 tab 09/29/17 valACYclovir HCL [Valacyclovir] 1,000 mg PO Q12HR #14 tab 09/29/17 Clindamycin [Cleocin] 450 mg PO Q8H #21 capsule 08/02/18 Loratadine [Claritin] 10 mg PO DAILY #30 tab 08/02/18 Allergies Allergy/AdvReac Type Severity Reaction Status Date / Time Sulfa (Sulfonamide Allergy Rash/Hives Verified 08/02/18 08:33 Antibiotics) hydrocodone [From [place]] AdvReac Nausea & Verified 08/02/18 08:33 Vomiting Review of Systems ROS Statement: Those systems with pertinent positive or pertinent negative responses have been documented in the HPI. ROS Other: All systems not noted in ROS Statement are negative. Past Medical History Past Medical History: Chest Pain / Angina, Diabetes Mellitus, Hypertension Additional Past Medical History / Comment(s): lower back pain History of Any Multi-Drug Resistant Organisms: None Reported Past Surgical History: Hernia Repair, Orthopedic Surgery Additional Past Surgical History / Comment(s): toe surg /ingrown toenails removed on bilaeral big toes, cervical fusion; pain procedures Past Anesthesia/Blood Transfusion Reactions: No Reported Reaction Past Psychological History: No Psychological Hx Reported Smoking Status: Current every day smoker Past Alcohol Use History: None Reported Past Drug Use History: None Reported - Past Family History Father Family Medical History: Cancer Additional Family Medical History / Comment(s): colon cancer Mother Family Medical History: Cancer Additional Family Medical History / Comment(s): brain cancer Brother(s) Family Medical History: Diabetes Mellitus Additional Family Medical History / Comment(s): pt. states his brother from complications related to diabetes Sister(s) Family Medical History: Cancer Additional Family Medical History / Comment(s): pts. younger sister has breast cancer General Exam Limitations: no limitations General appearance: alert, in no apparent distress Head exam: Present: atraumatic, normocephalic Eye exam: Present: PERRL, EOMI, periorbital swelling (Mild soft tissue swelling below the eye on the right with minimal erythema. No induration. No proptosis on exam), other (Corneas clear, no scleral injection). Absent: scleral icterus , conjunctival injection, nystagmus, periorbital tenderness Neck exam: Present: normal inspection. Absent: tenderness, meningismus Respiratory exam: Present: normal lung sounds bilaterally. Absent: respiratory distress, wheezes Cardiovascular Exam: Present: regular rate, normal rhythm GI/Abdominal exam: Present: soft. Absent: distended, tenderness Course Vital Signs 08/02/18 08:33 Temperature 98.1 F Pulse Rate 86 Respiratory 18 Rate Blood Pressure 141/73 O2 Sat by Pulse 98 Oximetry Medical Decision Making - Medical Decision Making 40-year-old male with swelling below the right eye status post minor trauma. Exam consistent with periorbital cellulitis and edema. Extraocular motions are intact, no fever, patient is nontoxic appearing, no suspicion at this time for orbital cellulitis. Globe itself is unaffected. Patient will be started on antibiotics as well as Claritin. Return with worsening or changing symptoms. Disposition Clinical Impression: Periorbital cellulitis of right eye Disposition: HOME SELF-CARE Condition: Good Instructions: Periorbital Cellulitis in Adults (ED) Prescriptions: Clindamycin [Cleocin] 450 mg PO Q8H #21 capsule Loratadine [Claritin] 10 mg PO DAILY #30 tab Is patient prescribed a controlled substance at d/c from ED?: No Referrals: Savana Tejada MD [Primary Care Provider] - 1-2 days Time of Disposition: 09:15
== END 2018-08-02 09:30 | disposition home or self-care (01) ==
LOC: EC 08:31
DX: L03.213 Periorbital cellulitis (principal); E11.9 Type 2 diabetes mellitus without complications; I10 Essential (primary) hypertension; F17.200 Nicotine dependence, unspecified, uncomplicated; Z79.4 Long term (current) use of insulin; Z79.899 Other long term (current) drug therapy; Z88.2 Allergy status to sulfonamides; Z88.5 Allergy status to narcotic agent
CPT/HCPCS: 99283

== ENCOUNTER 2019-01-22 09:51 | Emergency (ER) | payer MEDICARE, OTHER ==
[2019-01-22 09:59] VITALS: BP 145/90; PULSE 81; RESP 18; TEMP 98.2
--- NOTE | 2019-01-22 10:42 | ED ---
Eye Problem HPI - General Chief complaint: Eye Problems Stated complaint: Eye infection Time Seen by Provider: 01/22/19 10:25 Source: patient Mode of arrival: ambulatory Limitations: no limitations - History of Present Illness Initial comments: Patient is a 48-year-old male presenting to emergency Department with complaints of left eye pain 2 days. Patient states he went swimming in a pond a few days ago and started having irritation yesterday. Patient also reports discharge, swelling, slight erythema. Patient denies any changes in his vision, blurry vision, double vision, [place], nausea, vomiting, fever, chills. No other complaints at this time. - Related Data Home Medications Medication Instructions Recorded Confirmed Insulin Aspart [NovoLOG] 10 unit SQ AC-TID PRN 02/19/15 01/22/19 Insulin Glargine [Lantus] 50 unit SQ DAILY 02/19/15 01/22/19 Enalapril Maleate [Vasotec] 20 mg PO BID 02/18/16 01/22/19 Albuterol Inhaler [Ventolin Hfa 1 - 2 puff INHALATION RT-Q6H PRN 08/14/16 01/22/19 Inhaler] Tiotropium [place] [Spiriva] 1 cap INHALATION RT-DAILY PRN 08/14/16 01/22/19 Previous Rx's Medication Instructions Recorded Polymyxin B-Trimeth Sulf Ophth 1 drops LEFT EYE Q4H 7 Days #1 01/22/19 [Polytrim Opthalmic] bottle Allergies Allergy/AdvReac Type Severity Reaction Status Date / Time Sulfa (Sulfonamide Allergy Rash/Hives Verified 01/22/19 10:22 Antibiotics) hydrocodone [From [employer]] AdvReac Nausea & Verified 01/22/19 10:22 Vomiting Review of Systems ROS Statement: Those systems with pertinent positive or pertinent negative responses have been documented in the HPI. ROS Other: All systems not noted in ROS Statement are negative. Past Medical History Past Medical History: Chest Pain / Angina, Diabetes Mellitus, Hypertension Additional Past Medical History / Comment(s): lower back pain History of Any Multi-Drug Resistant Organisms: None Reported Past Surgical History: Hernia Repair, Orthopedic Surgery Additional Past Surgical History / Comment(s): toe surg /ingrown toenails removed on bilaeral big toes, cervical fusion; pain procedures Past Anesthesia/Blood Transfusion Reactions: No Reported Reaction Past Psychological History: No Psychological Hx Reported, Depression Smoking Status: Current every day smoker Past Alcohol Use History: Rare Past Drug Use History: None Reported - Past Family History Father Family Medical History: Cancer Additional Family Medical History / Comment(s): colon cancer Mother Family Medical History: Cancer Additional Family Medical History / Comment(s): brain cancer Brother(s) Family Medical History: Diabetes Mellitus Additional Family Medical History / Comment(s): pt. states his brother from complications related to diabetes Sister(s) Family Medical History: Cancer Additional Family Medical History / Comment(s): pts. younger sister has breast cancer General Exam - General Exam Comments Initial Comments: GENERAL: Well-appearing, well-nourished and in no acute distress. HEAD: Atraumatic, normocephalic. EYES: Pupils equal round and reactive to light, extraocular movements intact and nonpainful, sclera anicteric, conjunctiva are normal. Left eye has clear to yellow drainage, slight erythema surrounding the eye, slightly injected. Visual acuity is within normal limits. ENT: TMs normal, nares patent, oropharynx clear without exudates. Moist mucous membranes. NECK: Normal range of motion, supple without lymphadenopathy or JVD. LUNGS: Breath sounds clear to auscultation bilaterally and equal. No wheezes rales or rhonchi. HEART: Regular rate and rhythm without murmurs, rubs or gallops. ABDOMEN: Soft, nontender, normoactive bowel sounds. No guarding, no rebound. No masses appreciated. : Deferred EXTREMITIES: Normal range of motion, no pitting or edema. No clubbing or cyanosis. NEUROLOGICAL: Cranial nerves II through XII grossly intact. Normal speech, normal gait. PSYCH: Normal mood, normal affect. SKIN: Warm, Dry, normal turgor, no rashes or lesions noted. Limitations: no limitations Course Vital Signs 01/22/19 09:57 Temperature 98.2 F Pulse Rate 81 Respiratory 18 Rate Blood Pressure 145/90 O2 Sat by Pulse 97 Oximetry Medical Decision Making - Medical Decision Making Patient is a 48-year-old male complains of left eye irritation 2 days. Patient states he was swimming a couple days ago in the left eye has been irritated since. Patient denies any changes in vision. Exam is consistent with left eye conjunctivitis. Patient will be given antibiotic eyedrops. Patient will follow up with PCP as symptoms continue. Patient will be discharged home. Patient is in agreement with this plan and were return parameters were discussed with the patient. Case discussed with Dr. Alex. Disposition Clinical Impression: Bacterial conjunctivitis Disposition: HOME SELF-CARE Condition: Stable Instructions (If sedation given, give patient instructions): Conjunctivitis (ED) Additional Instructions: Please return to the Emergency Department if symptoms worsen or any other concerns. Follow-up with PCP if symptoms continue. Prescriptions: Polymyxin B-Trimeth Sulf Ophth [Polytrim Opthalmic] 1 drops LEFT EYE Q4H 7 Days #1 bottle Is patient prescribed a controlled substance at d/c from ED?: No Referrals: Savana Tejada MD [Primary Care Provider] - 1-2 days
== END 2019-01-22 10:48 | disposition home or self-care (01) ==
LOC: EC 09:51
DX: H10.9 Unspecified conjunctivitis (principal); E11.9 Type 2 diabetes mellitus without complications; I10 Essential (primary) hypertension; F17.200 Nicotine dependence, unspecified, uncomplicated; Z79.4 Long term (current) use of insulin; Z79.899 Other long term (current) drug therapy; Z88.2 Allergy status to sulfonamides; Z88.5 Allergy status to narcotic agent
CPT/HCPCS: 99283

== ENCOUNTER 2019-03-16 09:42 | Emergency (ER) | payer MEDICARE, OTHER ==
[2019-03-16 09:45] VITALS: BP 150/97; PULSE 74; RESP 18; TEMP 98
[2019-03-16] MEDS ORDERED: KETOROLAC 30 MG/ML 1 ML VIAL IM STA (10:01)
--- NOTE | 2019-03-16 10:27 | XR ---
EXAMINATION TYPE: XR shoulder complete RT DATE OF EXAM: 03/16/2019 CLINICAL HISTORY: Pain and swelling of the right shoulder TECHNIQUE: Three views of the right shoulder are obtained. COMPARISON: None. FINDINGS: There is no acute fracture/dislocation evident in the right shoulder. The acromioclavicul ar and glenohumeral joint spaces appear aligned. There is mild acromioclavicular arthropathy with sma ll marginal osteophytes. Postsurgical changes of the cervical spine are noted. The visualized ribs ar e intact and unremarkable. IMPRESSION: There is no acute fracture or dislocation in the right shoulder. Mild acromioclavicular arthropathy.
--- NOTE | 2019-03-16 10:59 | ED ---
General Adult HPI - General Chief complaint: Neck Pain/Injury Stated complaint: Shoulder pain Time Seen by Provider: 03/16/19 09:49 Source: patient Mode of arrival: ambulatory Limitations: no limitations - History of Present Illness Initial comments: 48-year-old male with a past medical history of chest pain, diabetes, hypertension presents to the emergency department for right shoulder pain. Patient states that about a week ago he started to have some lateral neck pain in this then turned into right shoulder pain. States that when he is resting t he pain is better but when he moves his right arm this pain is worse. Denies any chest pain or shortness of breath. Denies any fevers or chills. Denies any injuries that he is aware of.Patient has no other complaints at this time including shortness of breath, chest pain, abdominal pain, nausea or vomiting, headache, or visual changes. - Related Data Home Medications Medication Instructions Recorded Confirmed Insulin Aspart [NovoLOG] 10 unit SQ AC-TID PRN 02/19/15 03/16/19 Insulin Glargine [Lantus] 50 unit SQ DAILY 02/19/15 03/16/19 Albuterol Inhaler [Ventolin Hfa 1 - 2 puff INHALATION RT-Q6H PRN 08/14/16 03/16/19 Inhaler] Tiotropium [place] [Spiriva] 1 cap INHALATION RT-DAILY 08/14/16 03/16/19 Allergies Allergy/AdvReac Type Severity Reaction Status Date / Time Sulfa (Sulfonamide Allergy Rash/Hives Verified 03/16/19 10:17 Antibiotics) hydrocodone [From [place]] AdvReac Nausea & Verified 03/16/19 10:17 Vomiting Review of Systems ROS Statement: Those systems with pertinent positive or pertinent negative responses have been documented in the HPI. ROS Other: All systems not noted in ROS Statement are negative. Past Medical History Past Medical History: Chest Pain / Angina, Diabetes Mellitus, Hypertension Additional Past Medical History / Comment(s): lower back pain History of Any Multi-Drug Resistant Organisms: None Reported Past Surgical History: Hernia Repair, Orthopedic Surgery Additional Past Surgical History / Comment(s): toe surg /ingrown toenails removed on bilaeral big toes, cervical fusion; pain procedures Past Anesthesia/Blood Transfusion Reactions: No Reported Reaction Past Psychological History: No Psychological Hx Reported, Depression Smoking Status: Current every day smoker Past Alcohol Use History: Rare Past Drug Use History: None Reported - Past Family History Father Family Medical History: Cancer Additional Family Medical History / Comment(s): colon cancer Mother Family Medical History: Cancer Additional Family Medical History / Comment(s): brain cancer Brother(s) Family Medical History: Diabetes Mellitus Additional Family Medical History / Comment(s): pt. states his brother from complications related to diabetes Sister(s) Family Medical History: Cancer Additional Family Medical History / Comment(s): pts. younger sister has breast cancer General Exam Limitations: no limitations General appearance: alert, in no apparent distress Head exam: Present: atraumatic, normocephalic, normal inspection Eye exam: Present: normal appearance, PERRL, EOMI. Absent: scleral icterus, conjunctival injection, periorbital swelling ENT exam: Present: normal exam, mucous membranes moist Neck exam: Present: normal inspection, full ROM (Full range of motion of the neck.). Absent: tenderness (No tenderness noted.), meningismus, lymphadenopathy Respiratory exam: Present: normal lung sounds bilaterally. Absent: respiratory distress, wheezes, rales, rhonchi, stridor Cardiovascular Exam: Present: regular rate, normal rhythm, normal heart sounds. Absent: systolic murmur, diastolic murmur, rubs, gallop, clicks Extremities exam: Present: normal capillary refill (Capillary refill less than 2 seconds, radial pulse 2+ and right upper extremity.), other (Sensation intact in the right upper shoe me. [employer] strength out of 5. No erythema or edema of the right shoulder. No increased warmth.). Absent: full ROM (Patient has about 90 flexion and abduction of the right shoulder. This does elicit pain.), tenderness, pedal edema, joint swelling, calf tenderness Course Vital Signs 03/16/19 09:44 Temperature 98.0 F Pulse Rate 74 Respiratory 18 Rate Blood Pressure 150/97 O2 Sat by Pulse 98 Oximetry Medical Decision Making - Medical Decision Making 40-year-old male presents to the emergency department for a chief complaint of right shoulder pain. This started about a week ago inserted in the lateral aspect of his neck but is now in the right shoulder. States pain is better rest but movement makes this worse. On exam he does have tenderness to the superior aspect of the shoulder. Has pain with range of motion of the right shoulder but is able to flex and abduction to 90. No erythema or edema, no evidence of infection. Neurovascular status intact in the right upper extremity. X-ray of the right shoulder was obtained which shows mild acromioclavicular arthropathy. This could be related to arthritic pain. Recommended following up with orthopedics in one to 2 days and taking anti-inflammatories. Recommended returning to the emergency department if he has any worsening symptoms. Disposition Clinical Impression: Shoulder pain, right, AC joint arthropathy Disposition: HOME SELF-CARE Condition: Good Instructions (If sedation given, give patient instructions): Shoulder Pain (ED) Additional Instructions: Please take Motrin and Tylenol for pain. Please follow-up with primary care in 1-2 days. Return to the emergency department if you have any worsening symptoms. Is patient prescribed a controlled substance at d/c from ED?: No Referrals: Savana Tejada MD [Primary Care Provider] - 1-2 days Connor Rose MD [STAFF PHYSICIAN] - 1-2 days Time of Disposition: 10:58
== END 2019-03-16 11:10 | disposition home or self-care (01) ==
LOC: EC 09:42
DX: M12.811 Other specific arthropathies, not elsewhere classified, right shoulder (principal); E11.9 Type 2 diabetes mellitus without complications; F17.200 Nicotine dependence, unspecified, uncomplicated; Z88.2 Allergy status to sulfonamides; Z88.5 Allergy status to narcotic agent; Z79.4 Long term (current) use of insulin; Z79.899 Other long term (current) drug therapy; Z98.1 Arthrodesis status
CPT/HCPCS: 73030; 99283; 96372; J1885

== ENCOUNTER 2020-05-03 10:39 | Emergency (ER) | payer MEDICARE, OTHER ==
[2020-05-03 10:43] VITALS: TEMP 98.9
--- NOTE | 2020-05-03 10:54 | ED ---
Lower Extremity Injury HPI - General Chief Complaint: Extremity Injury, Lower Stated Complaint: toe injury Time Seen by Provider: 05/03/20 10:44 Source: patient, family, RN notes reviewed, old records reviewed Mode of arrival: wheelchair Limitations: no limitations - History of Present Illness Initial Comments: 50-year-old male presents emergency room today with complaints of left foot pain. Patient reports that he is sitting on his bed and hanging clothes. He reports that he had slipped from the bed and landed with his toes flexing with his weight on his left foot. Patient reports he has pain with range motion of the first toe. Patient denies any other significant complaints of pain. He reports that he has no ankle pain or knee pain. - Related Data Home Medications Medication Instructions Recorded Confirmed Enalapril [Vasotec] 10 mg PO DAILY 05/03/20 05/03/20 Ibuprofen [Advil] 200 mg PO Q8HR PRN 05/03/20 05/03/20 Allergies Allergy/AdvReac Type Severity Reaction Status Date / Time Sulfa (Sulfonamide Allergy Rash/Hives Verified 05/03/20 11:20 Antibiotics) hydrocodone [From [place]] AdvReac Nausea & Verified 05/03/20 11:20 Vomiting Review of Systems ROS Statement: Those systems with pertinent positive or pertinent negative responses have been documented in the HPI. ROS Other: All systems not noted in ROS Statement are negative. Past Medical History Past Medical History: Chest Pain / Angina, Diabetes Mellitus, Hypertension Additional Past Medical History / Comment(s): lower back pain History of Any Multi-Drug Resistant Organisms: None Reported Past Surgical History: Hernia Repair, Orthopedic Surgery Additional Past Surgical History / Comment(s): toe surg /ingrown toenails removed on bilaeral big toes, cervical fusion; pain procedures Past Anesthesia/Blood Transfusion Reactions: No Reported Reaction Past Psychological History: No Psychological Hx Reported, Depression Smoking Status: Current every day smoker Past Alcohol Use History: Rare Past Drug Use History: None Reported - Past Family History Father Family Medical History: Cancer Additional Family Medical History / Comment(s): colon cancer Mother Family Medical History: Cancer Additional Family Medical History / Comment(s): brain cancer Brother(s) Family Medical History: Diabetes Mellitus Additional Family Medical History / Comment(s): pt. states his brother from complications related to diabetes Sister(s) Family Medical History: Cancer Additional Family Medical History / Comment(s): pts. younger sister has breast cancer General Exam - General Exam Comments Initial Comments: 50 year old male no distress. Limitations: no limitations General appearance: alert, in no apparent distress Head exam: Present: atraumatic, normocephalic, normal inspection Eye exam: Present: normal appearance, PERRL, EOMI. Absent: scleral icterus, conjunctival injection, periorbital swelling ENT exam: Present: normal exam, mucous membranes moist Neck exam: Present: normal inspection. Absent: tenderness, meningismus, lymphadenopathy Respiratory exam: Present: normal lung sounds bilaterally. Absent: respiratory distress, wheezes, rales, rhonchi, stridor Cardiovascular Exam: Present: regular rate, normal rhythm, normal heart sounds. Absent: systolic murmur, diastolic murmur, rubs, gallop, clicks GI/Abdominal exam: Present: soft, normal bowel sounds. Absent: distended, tenderness, guarding, rebound, rigid Left Knee exam: Present: normal inspection, full ROM Lower Leg exam: Present: normal inspection, full ROM Ankle exam: Present: normal inspection, full ROM Foot/Toe exam: Present: tenderness, swelling (first toe). Absent: normal inspection, full ROM, abrasion Neurovascular tendon exam: Present: no vascular compromise Gait: observed and normal Back exam: Present: normal inspection Neurological exam: Present: alert, oriented X3, CN II-XII intact Psychiatric exam: Present: normal affect, normal mood Skin exam: Present: warm, dry, intact, normal color. Absent: rash Course Vital Signs 05/03/20 10:40 Temperature 98.9 F Pulse Rate 91 Respiratory 16 Rate Blood Pressure 163/97 O2 Sat by Pulse 99 Oximetry Procedures - Orthopedic Splinting/Casting Injury #1 Side: left Lower Extremity Injury Location: foot Lower Extremity Immobilizer: boot orthosis, [place] wrap Medical Decision Making - Medical Decision Making 50-year-old male present to return today with left foot pain. Patient reports that he hyperflexed his foot today. Patient reportedly fell off the bed. Patient has some pain with range of motion of the great toe. X-rays reviewed to be negative for fracture. Patient will be discharged with a walking boot due to foot sprain and advised to follow-up with primary care doctor. Discussing telemetry medicine rest ice and elevation for pain. - Radiology Data Radiology results: report reviewed No acute fracture dislocation left foot. Disposition Clinical Impression: Foot sprain Disposition: HOME SELF-CARE Condition: Good Instructions (If sedation given, give patient instructions): Foot Sprain (ED) Additional Instructions: Patient is to rest, ice, elevate the foot and ankle. Patient can take antibiotic clinical trial head medication for pain. Return to the emergency department if any alarming signs or symptoms occur. Is patient prescribed a controlled substance at d/c from ED?: No Referrals: Savana Tejada MD [Primary Care Provider] - 1-2 days Connor Rose MD [STAFF PHYSICIAN] - 1-2 days Time of Disposition: 11:38
--- NOTE | 2020-05-03 11:13 | XR ---
EXAMINATION TYPE: XR foot complete LT DATE OF EXAM: 05/03/2020 CLINICAL HISTORY: Pain after fall injury. TECHNIQUE: Frontal, lateral, and oblique images of the left foot are obtained. COMPARISON: Prior left foot x-ray April 01, 2011 FINDINGS: There is no acute fracture/dislocation evident in the left foot with particular attention to first toe at area of clinical concern. The joint spaces in the left foot appear within normal varner its. The overlying soft tissue appears unremarkable. IMPRESSION: There is no acute fracture or dislocation in the left foot.
[2020-05-03 12:00] VITALS: BP 152/105; PULSE 88; RESP 18
== END 2020-05-03 12:04 | disposition home or self-care (01) ==
LOC: EC 10:39
DX: S93.602A Unspecified sprain of left foot, initial encounter (principal); I10 Essential (primary) hypertension; F17.200 Nicotine dependence, unspecified, uncomplicated; Z88.2 Allergy status to sulfonamides; Z88.5 Allergy status to narcotic agent; Z79.899 Other long term (current) drug therapy; Z98.890 Other specified postprocedural states; W06.XXXA Fall from bed, initial encounter; Y92.003 Bedroom of unspecified non-institutional (private) residence as the place of occurrence of the external cause
CPT/HCPCS: 99284

== ENCOUNTER 2021-03-30 07:33 | Emergency (ER) | payer MEDICARE, OTHER ==
[2021-03-30 07:45] VITALS: RESP 18
[2021-03-30] MEDS ORDERED: MORPHINE SULFATE 4 MG/ML SYRINGE IM STA (08:01)
[2021-03-30] MEDS ORDERED: DEXAMETHASONE SOD PHOSPHATE 10 MG/ML 1 ML VIAL IM STA (08:01)
--- NOTE | 2021-03-30 08:06 | ED ---
General Adult HPI - General Chief complaint: Back Pain/Injury Stated complaint: Fall, back pain Time Seen by Provider: 03/30/21 07:48 Source: patient, family, RN notes reviewed Mode of arrival: ambulatory Limitations: no limitations - History of Present Illness Initial comments: Patient is a pleasant 50-year-old male presenting to the emergency Department with low back pain. Onset of symptoms is chronic. Symptoms have been worse over the past couple of weeks. Patient had a fall yesterday and his symptoms of discomfort seemed worse. Patient has discomfort left lower back and does radiate towards the left leg. Over the past couple of weeks patient has had a couple episodes of urinary incontinence intermittently. No leg weakness. No fecal incontinence or retention. Patient does not believe she broke anything during the fall. - Related Data Home Medications Medication Instructions Recorded Confirmed Enalapril [Vasotec] 10 mg PO DAILY 05/03/20 05/03/20 Ibuprofen [Advil] 200 mg PO Q8HR PRN 05/03/20 05/03/20 Previous Rx's Medication Instructions Recorded methylPREDNISolone Dose Pack 24 mg PO DAILY #1 tab 03/30/21 [Medrol Dose Pack] Allergies Allergy/AdvReac Type Severity Reaction Status Date / Time Sulfa (Sulfonamide Allergy Rash/Hives Verified 03/30/21 07:45 Antibiotics) hydrocodone [From [place]] AdvReac Nausea & Verified 03/30/21 07:45 Vomiting Review of Systems ROS Statement: Those systems with pertinent positive or pertinent negative responses have been documented in the HPI. ROS Other: All systems not noted in ROS Statement are negative. Constitutional: Denies: fever Eyes: Denies: eye pain ENT: Denies: ear pain Respiratory: Denies: cough Cardiovascular: Denies: chest pain Endocrine: Denies: fatigue Gastrointestinal: Denies: abdominal pain Genitourinary: Reports: as per HPI. Denies: dysuria Musculoskeletal: Reports: as per HPI, back pain Skin: Denies: rash Neurological: Denies: weakness Past Medical History Past Medical History: Chest Pain / Angina, Diabetes Mellitus, Hypertension Additional Past Medical History / Comment(s): lower back pain History of Any Multi-Drug Resistant Organisms: None Reported Past Surgical History: Hernia Repair, Orthopedic Surgery Additional Past Surgical History / Comment(s): toe surg /ingrown toenails removed on bilaeral big toes, cervical fusion; pain procedures Past Anesthesia/Blood Transfusion Reactions: No Reported Reaction Past Psychological History: No Psychological Hx Reported, Depression Smoking Status: Current every day smoker Past Alcohol Use History: Rare Past Drug Use History: None Reported - Past Family History Father Family Medical History: Cancer Additional Family Medical History / Comment(s): colon cancer Mother Family Medical History: Cancer Additional Family Medical History / Comment(s): brain cancer Brother(s) Family Medical History: Diabetes Mellitus Additional Family Medical History / Comment(s): pt. states his brother from complications related to diabetes Sister(s) Family Medical History: Cancer Additional Family Medical History / Comment(s): pts. younger sister has breast cancer General Exam Limitations: no limitations General appearance: alert, in no apparent distress Head exam: Present: normocephalic Eye exam: Present: normal appearance Neck exam: Present: normal inspection Respiratory exam: Present: normal lung sounds bilaterally Cardiovascular Exam: Present: regular rate, normal rhythm Expanded Peripheral pulses: 2+: Posterior Tibialis (R), Posterior Tibialis (L) GI/Abdominal exam: Present: soft. Absent: tenderness Rectal exam: Present: normal rectal tone exam: Present: other (cremaster reflex present) Extremities exam: Present: normal inspection Back exam: Present: tenderness (Mild tenderness lower lumbar) Neurological exam: Present: alert. Absent: motor sensory deficit Expanded Sensory exam: Lower Extremity Light Touch: Normal Motor strength exam: RLE: 5, LLE: 5 Psychiatric exam: Present: normal affect, normal mood Skin exam: Present: normal color Course Vital Signs 03/30/21 07:40 Temperature 97.9 F Pulse Rate 72 Respiratory 18 Rate Blood Pressure 146/94 O2 Sat by Pulse 97 Oximetry Medical Decision Making - Medical Decision Making Patient reevaluated and resting comfortably in bed. Case was discussed with practitioner branch, covering with Dr. Pereyra who is comfortable with discharge with steroids and follow-up. Patient updated. - Radiology Data Radiology results: report reviewed (Lower spine CT shows no acute findings. Chronic changes. Worsening spondylolisthesis and degenerative changes L4-L5.) Disposition Clinical Impression: Low back pain Disposition: HOME SELF-CARE Condition: Stable Instructions (If sedation given, give patient instructions): Acute Low Back Pain (ED) Additional Instructions: Please do follow-up with Dr. Pereyra and primary care physician in the next day or 2 for recheck. Return for fevers, increased pain, weakness or loss of sensation of legs, worsening urinary problems, also of control of bowel movements, worsening symptoms or other concerns. Prescription for steroids has been sent to your pharmacy. Prescriptions: methylPREDNISolone Dose Pack [Medrol Dose Pack] 24 mg PO DAILY #1 tab Is patient prescribed a controlled substance at d/c from ED?: No Referrals: Savana Tejada MD [Primary Care Provider] - 1-2 days Teddy Pereyra DO [Doctor of Osteopathic Medicine] - 1-2 days Time of Disposition: 09:37
--- NOTE | 2021-03-30 09:00 | CT ---
EXAMINATION TYPE: CT lumbar spine wo con DATE OF EXAM: 03/30/2021 8:49 AM COMPARISON: CT lumbar spine 11/17/2015. HISTORY: low back pain, urinary incontinence CT DLP: 670.8 mGycm Automated exposure control for dose reduction was used. Unenhanced CT of the lumbar spine was performed. Bone and soft tissue window settings are submitted as well as coronal and sagittal reconstructions. There are 5 lumbar type vertebra redemonstrated. Per sistent pars defects bilaterally at L4 level. More prominent anterolisthesis L4 on L5 measuring 11 mm sagittal image 28 for reference. Moderate disc space narrowing with vacuum disc phenomenon at this l evel with mild to moderate anterior spurring or prominent versus prior. Remainder vertebral body heig hts and disc space heights are maintained. Axial images show T12-L1 and L1-L2 levels remain within normal limits. Axial images at L2-L3 level redemonstrated mild facet arthropathy bilaterally and at L3-L4 levels mil d to moderate facet arthropathy bilaterally but no significant disc herniation or neural foraminal na rrowing. Axial images at the L4-L5 level show more prominent spondylolisthesis with mild to moderate facet art hropathy and pseudodisc herniation. Fairly severe bilateral neural foraminal narrowing noted more pro minent than prior. Mild effacement anterior thecal sac. Axial images at the L5-S1 level show tiny central disc protrusion and mild facet arthropathy. Normal-appearing appendix is partially imaged. There is 4.3 cm duodenal diverticulum along the third portion coronal image 7 incidentally noted. IMPRESSION: Worsening spondylolisthesis and degenerative changes L4-L5 level as detailed above. No ac luis findings evident.
[2021-03-30 10:15] VITALS: BP 158/96; PULSE 68; TEMP 97.8
== END 2021-03-30 10:14 | disposition home or self-care (01) ==
LOC: EC 07:33
DX: M54.5 Low back pain (principal); E11.9 Type 2 diabetes mellitus without complications; I10 Essential (primary) hypertension; F17.200 Nicotine dependence, unspecified, uncomplicated; Z79.1 Long term (current) use of non-steroidal anti-inflammatories (NSAID); Z80.3 Family history of malignant neoplasm of breast; Z83.3 Family history of diabetes mellitus; Z88.2 Allergy status to sulfonamides; Z88.5 Allergy status to narcotic agent; W19.XXXA Unspecified fall, initial encounter
CPT/HCPCS: 72131; 99284; 96372 ×2; J2270; J1100

== ENCOUNTER 2021-04-24 10:27 | Inpatient (IN) | payer MEDICARE, OTHER ==
[2021-04-24] MEDS ORDERED: NALOXONE 0.4 MG/ML 1 ML VIAL IV PRN (11:44)
[2021-04-24] MEDS ORDERED: ONDANSETRON 4 MG/2 ML VIAL IVP PRN ×2 (11:44→13:01)
[2021-04-24] MEDS: SODIUM CHLORIDE 0.9% 1,000 ML IV SCH (11:48)
--- NOTE | 2021-04-24 11:51 | ED ---
General Adult HPI - General Chief complaint: Back Pain/Injury Stated complaint: back pain Time Seen by Provider: 04/24/21 11:07 Source: patient, RN notes reviewed, old records reviewed Mode of arrival: ambulatory Limitations: no limitations - History of Present Illness Initial comments: 51-year-old male sent in from the orthopedic surgeon's office for admission for operation tomorrow. The patient has had chronic back pain and states he has significant chronic disease in his low back but over the past 2 weeks has developed bowel and bladder incontinence. He denies a specific trauma. He denies fever or chills. He is able to ambulate but states he has increased pain after approximately 300 feet. He denies pain in the legs currently. He denies numbness. - Related Data Home Medications Medication Instructions Recorded Confirmed Enalapril [Vasotec] 10 mg PO DAILY 05/03/20 05/03/20 Ibuprofen [Advil] 200 mg PO Q8HR PRN 05/03/20 05/03/20 Previous Rx's Medication Instructions Recorded methylPREDNISolone Dose Pack 24 mg PO DAILY #1 tab 03/30/21 [Medrol Dose Pack] Allergies Allergy/AdvReac Type Severity Reaction Status Date / Time Sulfa (Sulfonamide Allergy Rash/Hives Verified 04/24/21 10:55 Antibiotics) hydrocodone [From [place]] AdvReac Nausea & Verified 04/24/21 10:55 Vomiting Review of Systems ROS Statement: Those systems with pertinent positive or pertinent negative responses have been documented in the HPI. ROS Other: All systems not noted in ROS Statement are negative. Past Medical History Past Medical History: Chest Pain / Angina, Diabetes Mellitus, Hypertension Additional Past Medical History / Comment(s): lower back pain History of Any Multi-Drug Resistant Organisms: None Reported Past Surgical History: Hernia Repair, Orthopedic Surgery Additional Past Surgical History / Comment(s): toe surg /ingrown toenails removed on bilaeral big toes, cervical fusion; pain procedures Past Anesthesia/Blood Transfusion Reactions: No Reported Reaction Past Psychological History: No Psychological Hx Reported, Depression Smoking Status: Current every day smoker Past Alcohol Use History: Rare Past Drug Use History: None Reported - Past Family History Father Family Medical History: Cancer Additional Family Medical History / Comment(s): colon cancer Mother Family Medical History: Cancer Additional Family Medical History / Comment(s): brain cancer Brother(s) Family Medical History: Diabetes Mellitus Additional Family Medical History / Comment(s): pt. states his brother from complications related to diabetes Sister(s) Family Medical History: Cancer Additional Family Medical History / Comment(s): pts. younger sister has breast cancer General Exam Limitations: no limitations General appearance: alert, in no apparent distress Head exam: Present: atraumatic, normocephalic Eye exam: Present: normal appearance, PERRL ENT exam: Present: normal exam Neck exam: Present: normal inspection Respiratory exam: Present: normal lung sounds bilaterally. Absent: respiratory distress, wheezes Cardiovascular Exam: Present: regular rate, normal rhythm GI/Abdominal exam: Present: soft. Absent: distended Extremities exam: Present: normal inspection, normal capillary refill Neurological exam: Present: alert Psychiatric exam: Present: normal affect, normal mood Skin exam: Present: warm, dry, intact. Absent: cyanosis, diaphoretic Course Vital Signs 04/24/21 10:51 Temperature 97.9 F Pulse Rate 74 Respiratory 18 Rate Blood Pressure 166/96 EKG Findings - EKG Comments: EKG Findings:: EKG: Normal sinus rhythm, rate of 69, W[place] interval 128, QRS duration 106, QTC [address] segment elevation. Medical Decision Making - Medical Decision Making 51-year-old male with concern for cord compression or cauda equina. Patient sent in from Dr. Pereyra's office. I did contact the branch was in the operating room, I will admit the patient to orthopedics with medicine on consult. I talked to Dr. Almonte who will evaluate the patient. Preoperative laboratory testing, chest x-ray and EKG has been ordered. These results are pending. Patient will be kept nothing by mouth after midnight. Disposition Clinical Impression: Bowel and bladder incontinence, Chronic low back pain Narrative: Patient admitted to ortho- spine with concerning features including bowel and bladder incontinence. Disposition: ADMITTED IP TO THIS HOSP Condition: Stable Is patient prescribed a controlled substance at d/c from ED?: No Referrals: Savana Tejada MD [Primary Care Provider] - 1-2 days Decision to Admit Reason: Admit from EC Decision Date: 04/24/21 Decision Time: 11:51
[2021-04-24 12:04] LABS: Basophils % (A) 1 %; Eosinophils # (A) 0.3 k/uL (0-0.7); Eosinophils % (A) 4 %; HCT 46.8 % (39.0-53.0); HGB 16.4 gm/dL (13.0-17.5); Lymphocytes # (A) 2.1 k/uL (1.0-4.8); Lymphocytes % (A) 35 %; MCH 31.6 pg (25.0-35.0); MCV 90.5 fL (80.0-100.0); Mean Platelet Volume 7.4; Monocytes # (A) 0.3 k/uL (0-1.0); Monocytes % (A) 6 %; Neutrophils # (A) 3.2 k/uL (1.3-7.7); Neutrophils % (A) 52 %; Platelet Count 195 k/uL (150-450); RBC 5.18 m/uL (4.30-5.90); RDW 12.3 % (11.5-15.5); WBC 6.1 k/uL (3.8-10.6)
--- NOTE | 2021-04-24 12:04 | XR ---
EXAMINATION TYPE: XR chest 2V DATE OF EXAM: 04/24/2021 COMPARISON: 09/24/2017 TECHNIQUE: PA and lateral views submitted. HISTORY: Preop FINDINGS: The lungs are clear and there is no pneumothorax, pleural effusion, or focal pneumonia. Postsurgica l change overlying the cervical spine. Heart size normal. No overt failure. Hypertrophic and degenera tive changes of the spine. IMPRESSION: 1. No acute process.
[2021-04-24 12:17] LABS: INR 0.9 (<1.2); Partial Thromboplastin Time 25.9 sec (22.0-30.0); Prothrombin Time 9.8 sec (9.0-12.0)
[2021-04-24 12:25] LABS: ALT 18 U/L (4-49); AST 22 U/L (17-59); African American GFR (CKD) >90 (>60 ml/min/1.73 sqM); Albumin 3.9 g/dL (3.5-5.0); Alkaline Phosphatase 82 U/L (38-126); Anion Gap 8 mmol/L; Blood Urea Nitrogen 8 mg/dL (9-20); Calcium 9.2 mg/dL (8.4-10.2); Carbon Dioxide 23 mmol/L (22-30); Chloride 106 mmol/L (98-107); Glucose 128 mg/dL (74-99); Non-African American GFR(CKD) >90 (>60 ml/min/1.73 sqM); Potassium 3.8 mmol/L (3.5-5.1); Sodium 137 mmol/L (137-145); Total Bilirubin 0.4 mg/dL (0.2-1.3); Total Protein 6.8 g/dL (6.3-8.2)
[2021-04-24] MEDS ORDERED: HYDROcodone/APAP 5-325MG 1 EACH TAB PO PRN (13:01)
[2021-04-24] MEDS ORDERED: SENNOSIDES 8.6 MG TAB PO PRN (13:01)
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
[2021-04-24 14:06] LABS: Basophils % (A) 1 %; Eosinophils # (A) 0.2 k/uL (0-0.7); Eosinophils % (A) 4 %; HCT 48.5 % (39.0-53.0); HGB 16.6 gm/dL (13.0-17.5); Lymphocytes # (A) 2.2 k/uL (1.0-4.8); Lymphocytes % (A) 38 %; MCH 31.4 pg (25.0-35.0); MCHC 34.3 g/dL (31.0-37.0); MCV 91.4 fL (80.0-100.0); Mean Platelet Volume 7.3; Monocytes # (A) 0.3 k/uL (0-1.0); Monocytes % (A) 5 %; Neutrophils # (A) 2.9 k/uL (1.3-7.7); Neutrophils % (A) 50 %; Platelet Count 213 k/uL (150-450); RBC 5.31 m/uL (4.30-5.90); RDW 12.4 % (11.5-15.5); WBC 5.8 k/uL (3.8-10.6)
[2021-04-24 14:15] LABS: INR 0.9 (<1.2); Partial Thromboplastin Time 26.2 sec (22.0-30.0); Prothrombin Time 9.9 sec (9.0-12.0)
[2021-04-24] MEDS: DEXAMETHASONE SOD PHOSPHATE 4 MG/ML 1 ML VIAL IV SCH ×2 (18:01→23:40)
[2021-04-24] MEDS: GABAPENTIN 300 MG CAP PO SCH ×2 (18:01→20:53)
[2021-04-24] MEDS ORDERED: hydrOXYzine pamoate 25 MG CAP PO PRN (18:07)
[2021-04-24] MEDS ORDERED: ALBUTEROL NEBULIZED 2.5 MG/3 ML INHALATION PRN (18:07)
--- NOTE | 2021-04-24 18:56 | P.CONS ---
History of Present Illness - Reason for Consult Consult date: 04/24/21 Medical management - Chief Complaint Lower back pain - History of Present Illness Patient is a 51-year-old male with a known history of hypertension, COPD, diabetes type 2 insulin-dependent, low back pain and recent history of fall and currently everyday smoker was sent from orthopedic surgery clinic for L4-L5 lumbar disc decompression. Patient does have history of chronic low back pain and also recent history of fall. Patient developed bowel and bladder incontinence intermittently for the past 2 weeks and also having multiple falls due to lax giving away and claudication with ambulation. Denied any numbness or tingling sensation. Patient was seen in the orthopedic surgery clinic and referred to ER for possible surgery tomorrow. Patient currently denied any complaints of chest pain or shortness of breath. No headache or dizziness or lightheadedness. No fever no chills. No cough or sputum production. Patient is saturating at 97% on room air. Laboratory data showed WBC 6.1 hemoglobin 16.4 and platelets 195 Sodium 137 potassium 3.8 chloride 106 BUN 18 creatinine 0.9 to and blood sugar is 128 Liver enzymes are not elevated. COVID-19 PCR not detected. Patient had CT of the lumbar spine on 03/30/2021 showed grade 2 on stable spondylolisthesis with spondylolysis off L4-L5 with bilateral pars defects. Severe central and foraminal stenosis, face acute overgrowth. No other acute fractures noted. X-ray of the lumbar spine on 04/24/2021 at the physician's office showed unsta ble grade 2 spondylolisthesis of L4-L5 with what appears to be acute on chronic changes with bilateral posterior defects as well as physical overgrowth. There is severe foraminal stenosis bilaterally due to this as well as central noted. Review of Systems Constitutional: Patient denies any fever or chills . No generalized weakness or weight loss. Abdomen: Patient denied nausea vomiting and diarrhea and abdominal pain. Cardiovascular: Patient denies any chest pain or short of breath no palpitations. Respiratory: patient denied any cough is from production. No shortness of breath Neurologic: Patient denied any numbness or tingling headache. Bilateral lower extremity weakness Musculoskeletal: Patient denies any complaints of joint swelling or deformity. Skin: Negative Psychiatric: Negative Endocrine: No heat or cold intolerance. No recent weight gain. Genitourinary: No dysuria or hematuria. All other 14 point ROS negative except the above Past Medical History Past Medical History: Chest Pain / Angina, Diabetes Mellitus, Hypertension Additional Past Medical History / Comment(s): lower back pain History of Any Multi-Drug Resistant Organisms: None Reported Past Surgical History: Hernia Repair, Orthopedic Surgery Additional Past Surgical History / Comment(s): toe surg /ingrown toenails removed on bilaeral big toes, cervical fusion; pain procedures Past Anesthesia/Blood Transfusion Reactions: No Reported Reaction Past Psychological History: No Psychological Hx Reported, Depression Additional Psychological History / Comment(s): pt. states he used to be on buspar for anxiety but has stopped taking it and stopped seeing his psychiatrist Smoking Status: Current every day smoker Past Alcohol Use History: Rare Additional Past Alcohol Use History / Comment(s): smoked off and on for 35 years- STARTED SMOKING AT AGE 16 SMOKES 1PPD Past Drug Use History: None Reported - Past Family History Father Family Medical History: Cancer Additional Family Medical History / Comment(s): colon cancer Mother Family Medical History: Cancer Additional Family Medical History / Comment(s): brain cancer Brother(s) Family Medical History: Diabetes Mellitus Additional Family Medical History / Comment(s): pt. states his brother from complications related to diabetes Sister(s) Family Medical History: Cancer Additional Family Medical History / Comment(s): pts. younger sister has breast cancer Medications and Allergies Home Medications Medication Instructions Recorded Confirmed Type Albuterol Sulfate [Ventolin HFA] 2 puff INHALATION RT-QID PRN 04/24/21 04/24/21 History Atorvastatin [Lipitor] 10 mg PO DAILY 04/24/21 04/24/21 History Enalapril [Vasotec] 20 mg PO DAILY 04/24/21 04/24/21 History INSULIN ASPART (NovoLOG) [NovoLOG See Protocol SQ ACHS 04/24/21 04/24/21 History (formulary)] Insulin Glargine [Lantus Vial] 20 unit SQ DAILY 04/24/21 04/24/21 History Tiotropium 18 Mcg/Puff [Spiriva] 1 puff INHALATION RT-DAILY 04/24/21 04/24/21 History carvediloL [Coreg] 6.25 mg PO BID 04/24/21 04/24/21 History hydrOXYzine pamoate [hydrOXYzine 25 mg PO HS PRN 04/24/21 04/24/21 History PAMOATE] Allergies Allergy/AdvReac Type Severity Reaction Status Date / Time Sulfa (Sulfonamide Allergy Rash/Hives Verified 04/24/21 12:40 Antibiotics) hydrocodone [From [place]] AdvReac Nausea & Verified 04/24/21 12:40 Vomiting Physical Exam Vitals: Vital Signs Temp Pulse Pulse Resp BP BP Pulse Ox 04/24/21 16:56 97.9 F 76 17 153/81 97 04/24/21 16:47 97.9 F 78 18 152/111 99 04/24/21 15:53 78 18 152/111 99 04/24/21 10:51 97.9 F 74 18 166/96 Intake and Output 04/24/21 04/24/21 04/24/21 06:59 14:59 22:59 Other: Weight 79.379 kg 79.379 kg PHYSICAL EXAMINATION: Patient is lying in the bed comfortably, no acute distress, awake alert and oriented.. HEENT: Normocephalic. Neck is supple. Pupils reactive. Nostrils clear. Oral cavity is moist. Neck reveals no JVD, carotid bruits, or thyromegaly. CHEST EXAMINATION: Trachea is central. Symmetrical expansion. Lung larson clear to auscultation and percussion. CARDIAC: Normal S1, S2 with no gallops. No murmurs ABDOMEN: Soft. Bowel sounds normal. No organomegaly. No abdominal bruits. Extremities: reveal no edema. No clubbing or cyanosis Neurologically awake, alert, oriented x3 with well-coordinated movements. No focal deficits noted Mid lower back and paraspinal mild tenderness. Skin: No rash or skin lesions. Psychiatric: Coperative. Nonsuicidal Musculoskeletal: No joint swelling or deformity. Normal range of motion. Results CBC & Chem 7: 04/24/21 13:40 04/24/21 11:38 Labs: Abnormal Lab Results - Last 24 Hours (Table) 04/24/21 Range/Units 11:38 BUN 8 L (9-20) mg/dL Glucose 128 H (74-99) mg/dL Assessment and Plan Assessment: Acute on chronic low back pain with unstable spondylolisthesis with spondylolysis L4-L5 Intermittent bowel and bladder incontinence Claudication in the bilateral lower extremities Recent history of falls about 2-3 weeks ago Diabetes type 2 insulin-dependent pressure is controlled Hypertension Currently with a smoker DVT prophylaxis with SCDs. Not on heparin due to scheduled spinal surgery.. Plan: Patient will be continued on Coreg 6.25 mg twice a day and enalapril/lisinopril 20 mg daily for better blood pressure control. Continue with insulin regimen titration dose as needed. Patient will be continuously sliding scale since the patient is started on Decadron 4 mg IV every 6 hourly. Continue with Dilaudid for pain management. Orthopedic surgery is planning for decompression of L4-L5. Encourage incentive spirometry. Continue with the breathing treatments. Patient is at low risk for orthopedic surgery. We will continue to follow closely and further recommendations based on the clinical course. Thank you for your consult. Time with Patient: Greater than 30
[2021-04-24 20:19] LABS: Glucose,Whole Blood 138 mg/dL (75-99)
[2021-04-24] MEDS: INSULIN ASPART (NovoLOG) 100 UNIT/ML VIAL SQ SCH (20:50)
[2021-04-24] MEDS: DOCUSATE 100 MG CAP PO SCH (20:52)
[2021-04-24] MEDS: carvediloL 6.25 MG TAB PO SCH (20:52)
--- NOTE | 2021-04-24 22:41 | MR ---
EXAMINATION TYPE: MR lumbar spine wo con DATE OF EXAM: 04/24/2021 COMPARISON: CT 03/30/2021 HISTORY: L4-5 spondylolisthesis, bowel bladder incontinence TECHNIQUE: T1 and T2 axial and sagittal images of the lumbar spine are submitted. FINDINGS: There is no abnormal signal seen within the visualized spinal cord or paraspinal soft tissu es. At L1-2 there is no disc herniation or canal stenosis. No foraminal encroachment. Hypertrophic change of the facets. At L2-3 there is no disc herniation or canal stenosis. Hypertrophic change since. No foraminal encroa chment. At L3-4 there is degenerative disc disease with hypertrophic change of the facets and ligamentum flav um. No disc herniation or canal stenosis. No foraminal encroachment. At L4-5 there is grade 1\2 anterolisthesis L4 on L5 with pseudodisc. There is mild effacement of thec al sac. There is facet arthropathy. There is bilateral spondylolysis. Discogenic marrow changes noted . At L5-S1 there is discogenic marrow changes with no significant degenerative disc disease and focal c entral disc herniation abutting the anterior margin of the thecal sac and exiting right nerve root ne ural foramina patent. IMPRESSION: 1. Grade 1\2 anterolisthesis L4 and L5. There is effacement of thecal sac and facet arthropathy with severe bilateral foraminal encroachment. Borderline canal stenosis. Bilateral spondylolysis of L4. 2. Focal central disc herniation with mild effacement of thecal sac and encroachment upon the exiting right nerve root L5-S1. 3. Multilevel degenerative disc
[2021-04-25] MEDS: SODIUM CHLORIDE 0.9% 1,000 ML IV SCH ×2 (01:11→19:38)
[2021-04-25] MEDS: DEXAMETHASONE SOD PHOSPHATE 4 MG/ML 1 ML VIAL IV SCH ×4 (04:47→23:37)
[2021-04-25 07:10] LABS: Glucose,Whole Blood 239 mg/dL (75-99)
[2021-04-25] MEDS: IPRATROPIUM 0.5 MG/2.5 ML NEBU INHALATION SCH ×4 (07:39→20:18)
--- NOTE | 2021-04-25 08:17 | P.PN ---
Subjective Progress Note Date: 04/25/21 Principal diagnosis: Incomplete cauda L4-5 spondylolysis with listhesis Patient was seen and examined this morning with his and friend at bedside he is doing fairly well. He still having issues with bowel and bladder control he was still having issues with sensation in his groin perineum and genitals. He is of low back pain. She denies any fevers chills shortness of breath or chest pain medicine has seen the patient appreciate consult note and clearance. I discussed with his friend and him once again surgical indications as well as our surgical plan and they are comfortable with all the risks benefits and limitations of the procedure. We discussed these at length and they are comfortable with them. Objective - Vital Signs Vital signs: Vital Signs Temp 98.1 F 04/25/21 04:30 Pulse 92 04/25/21 07:49 Resp 16 04/25/21 04:30 BP 127/77 04/25/21 04:30 Pulse Ox 96 04/25/21 04:30 Intake & Output 04/24/21 04/25/21 04/25/21 18:59 06:59 18:59 Intake Total 150 800 Balance 150 800 Weight 79.379 kg Intake: Intake, IV Titration 150 Amount Sodium Chloride 0.9% 1, 150 000 ml @ 75 mls/hr IV . [id number] [facility] Rx#:[id number] Oral 800 Other: Voiding Method Toilet Urinal Diaper Incontinent # Voids 1 2 - Exam PHYSICAL EXAMINATION: Vitals: Stable General: Awake, alert, appropriate for age, in no acute distress. HEENT: No unusual neck masses around region of lateral neck triangle, thyroid, supraclavicular groove. Extremities: Skin warm and dry without no acute lesions, coloration, temperature, skin intact, no tenderness or erythema. Integument: Hairy patches: Absent Dorsal skin dimples: Absent Cafe au lait spots: Absent Surgical incisions: None Palpation: Please see Pain drawing on Intake sheet for further detail. (Tenderness = T, Nontender = NT, Swelling = S, Ecchymosis = E) Findings on Midline and paraspinal palpation and percussion: Cervical: NT Thoracic: NT Lumbar: Midline tenderness Sacral: NT Special findings: Palpable step-off L4-L5 VASCULAR STATUS : Wrist Pulses: [2/4 bilateral radial and ulnar] Pedal Pulses: [2/4 bilateral DP and PT] Color: [Normal] Edema: [None] NEUROLOGIC EXAMINATION: Mental Status: Awake and alert, fully oriented, with normal attention, concentration and memory, and fluent, appropriate speech. Cranial Nerves: I: Olfactory not tested. II: Visual acuity normal, no visual field deficit noted with confrontation. III,IV: Normal pupillary reflexes & intact extraocular movements without nystagmus. V,: Intact symmetrical facial sensation. VII: Intact symmetrical facial motor movement VIII: Hearing intact. IX,X: Intact gag, swallow, & normal voice. XI: Sternocleidomastoid, trapezius function intact. XII: Tongue midline with normal movements. Special Tests: L'hermitte's Sign: Absent Spurling'Sign: Absent Bilateral Cubital percussion test: Absent Bilateral Natasha-Tinel sign - Carpal region: Absent Bilateral Straight Leg Raising: Absent Bilateral Motor Exam (0-5/5, N/T) STRENGTH UPPER EXTREMITY Shoulder Abd (Not part of FARIDEH Motor score): RIGHT [5] LEFT [5] Elbow Flexors: RIGHT [5] LEFT [5] Elbow Extensor: RIGHT [5] LEFT [5] Wrrist Dorsiflexors: RIGHT [5] LEFT [5] Finger Abductor: RIGHT [5] LEFT [5] [employer] Work[employer]: RIGHT [5] LEFT [5] LOWER EXTREMITY Hip Flexor (Not part of FARIDEH Motor Score): RIGHT 4 LEFT 4 Knee Flexor: RIGHT 4 LEFT 4 Knee Extensor: RIGHT 4 LEFT 4 Ankle Dorsiflexion: RIGHT 4 LEFT 4 Ankle Plantarflexion: RIGHT 4 LEFT 4 EHL: RIGHT 4 LEFT 4 FHL: RIGHT 4 LEFT 4 FARIDEH Motor Score: RIGHT 45/50 LEFT 45/50 REFLEXES Biecp: RIGHT [2] LEFT [2] Tricep: RIGHT [2] LEFT [2] Brachioradialis: RIGHT [2] LEFT [2] Patellar: RIGHT 3 LEFT 3 Achilles: RIGHT 3 LEFT 3 Pathological Reflexes Rodriguez's: RIGHT [Absent] LEFT [Absent] Babinski: RIGHT [Absent] LEFT [Absent] Clonus: RIGHT [None] LEFT [None] SENSORY Joint Position: [Intact bilaterally] Vibration [Intact bilaterally] Pain and LT sense [Intact C5-T1 and L2-S1] Dermatomal deficit L4 5 bilateral as well as perianal Gait and Functional Evaluation: Ambulatory aids: Cane Hand and finger dexterity intact bilaterally[]. Disdiadochokinesis examination negative[] bilaterally. - Labs CBC & Chem 7: 04/24/21 13:40 04/24/21 11:38 Labs: Abnormal Lab Results - Last 24 Hours (Table) 04/24/21 04/24/21 04/25/21 Range/Units 11:38 20:17 07:09 BUN 8 L (9-20) mg/dL Glucose 128 H (74-99) mg/dL POC Glucose (mg/dL) 138 H 239 H (75-99) mg/dL - Imaging and Cardiology MRI of lumbar spine is reviewed this demonstrates a grade 2 spondylolisthesis and spondylolysis L4-L5. There are Modic endplate changes L4-L5 which are noted as well. There is severe foraminal stenosis bilaterally secondary to this. There is anterior thecal encroachment secondary to disc extrusion as well as herniation and listhesis. There is central stenosis related to this as well. There are no other fractures or dislocations noted at this time other than the lysis. Overall alignment is kyphotic at the L4 5 segment however remainder of the alignment is stable. No other lesions noted. Assessment and Plan Assessment: It was my pleasure to have seen and examined Lico. I reviewed the patient's clinical syndrome, physical findings, and imaging studies during the appointment today. It is my impression that the patient has a diagnosis of. 1. * L4-5 Grade 2 spondylolisthesis with spondylolysis with intermittent dino dder and bowel incontinence 2.DEL *Neurogenic claudication 3. DEL *Bilateral lower extremity radiculopathy and weakness 4. Impending and incomplete Cauda equina Plan: Based on my findings I suggest the following course of action: 1.* Due to the patient's symptomology and bladder/bowel issues I will be direct admitting the patient to the hospital. We will plan on a L4-L5 decompression with fusion tomorrow due to the emergent nature of his symptoms. All questions and concerns were addressed and the patient is understanding. All risks and benefits of the procedure were discussed and the patient wishes to proceed. 2. Ordered a stat MRI of the lumbar region without contrast for further examination of his pathology. Spine Surgery Risk Review Lico Jaime is a 51-year-old male presenting for evaluation of low back pain with intermittent bowel and bladder incontinence. It was my pleasure to have seen and examined Lico Jaime. In our visit today we have had a chance to go over subjective complaints, physical examination findings and treatments including the natural course history without intervention and various interventional options. The patients imaging demonstrates grade 2 spondylolisthesis with spondylolysis L4-L5. On physical exam, Lico Jaime demonstrates neurogenic claudication weakness in his lower extremities poor rectal sensation and tone. I have explained to the patient that as their condition progresses it will cause further neurological deficits and eventual paralysis. Based on the patients imaging, physical exam, and the rapid progression and disabling nature of their symptoms, at this time I recommend surgery in the form or a: L4-L5 decompression and fusion. I discussed the risk and benefits of this procedure at length with Lico Jaime. The patient agreed to considered pursuing the procedure abovementioned. Prior to surgery, she should follow up with her PCP (Cardio, ID, IM etc) for clearance. Questions were invited and answered, and the patient wishes to proceed as outlined below. Currently, I am recommendin. L4-L5 decompression and fusion 2. Follow up with PCP for surgical clearance 3. Review of surgical risks and benefits as well as an educational packet on the proposed surgical procedure. Risks: All surgical procedures come with inherent risks, including those related to positioning, anesthesia, intraoperative findings, and postoperative complications. It is important to understand that surgery does not come with any guarantee of a successful outcome as complications and adverse events are always possible. The patient was given a handout in office today discussing the surgical procedure and risks associated with the intervention, both of which were discussed with the patient. These risks include but are not limited to the following: * Experiencing same, different or even worse symptoms in back, neck, arms, or legs compared to before surgery. * Requiring further surgery or other forms of treatment presently or at some time in the future at same or other levels of the intended spine surgery. * On an extreme but fortunately relatively rare basis severe complication such as blindness, stroke, heart attack, temporary and/or permanent nerve injury, paralysis, coma, or may occur, sometimes without known explanation. * Surgical complications may include but are not limited to risk of in fection, fluid accumulation in the surgical dissection site, including a seroma or hematoma, that requires additional surgery, wound drainage, bleeding, new numbness or weakness, vision changes/loss, spinal fluid leakage, non-healing and/or infected incision, headaches, difficulty or inability to swallow, hoarseness, hemopneumothorax, pneumothorax, impotence, retrograde ejaculation, vaginal dryness; injury to nerves, spinal cord, blood vessels, lymphatics or other vital organs (i.e., bowel injury, injury to the great vessels); heterotopic bone formation; complications related to the hardware s uch as screws, rods, cages including misplaced hardware, device failure, instrumentation at the wrong spine level, hardware fracture/breakage, or hardware loosening; vertebral failure of the spinal column above or below the newly placed hardware; retained surgical instrumentations or devices and the need for further surgery. * Medical risks of the planned spine surgery include but are not limited to generalized Infections to the whole body or local areas outside of the surgical site (sepsis), heart attack, bleeding, anaphylaxis, meningitis, seizure, epilepsy, hearing loss, burn seymour, laceration of the head or other areas of the body, bruising, hypersensitivity of the skin, bladder over distension; allergic reaction; shoulder injury related to positioning; fat, blood and air clots to other areas of the body like heart, lungs, brain; failure of internal organs such as lungs, kidneys, liver and excessive bleeding. If blood transfusions are necessary, note that transfusions may c ause intolerance reactions such as anaphylaxis or other complex reactions. * Despite best efforts, the results of spine surgery might not heal in terms of bone, soft tissues such as skin, fascia, ligaments, and joints. Additionally, in order to achieve best possible results, spine surgery may be carried out beyond the initially planned levels and involve decompression, fusion including insertion of hardware at levels other than the original intended area of surgical interest change some portions of the procedure in order to ensure the best possible outcomes. * With spine surgery and spinal fusion, there are different off label uses of instrumentation (devices, implants and hardware) as well as biological substances (bone morphogenic proteins, demineralized bone matrix) as well as using extra bone from allograft sources (i.e. cadaver bone) or autograft (iliac crest bone, ribs, or the spine itself). The patient has been given information about these practices and their inherent risks and benefits. * [facility] is an educational center that serves as a training facility for neurosurgical and orthopedic spine residents and fellows. Residents are physicians who are completing their surgical intensive training following medical school. They assist in the operating room with direct supervision of the attending surgeons. Brandon are surgeons who have completed their training and eligible for board certification. They have opted for an elective year of more specialized training in their field. They assist in the operating room under the supervision of the attending surgeons. Physician assistants are medically trained surgical providers who function in the outpatient, inpatient, and operating room setting under the direct supervision of the attending surgeon. * [facility] has multiple operating rooms with single and overlapping rooms running daily. They currently function under the required guidelines as produced by the [facility] Finance Committee with regards to the overlapping rooms and will continue to comply with changes to this policy as they occur. The requirements include and are complied with as follows: (1) the critical portions of the overlapping rooms will not occur at the same time, (2) the attending physician will be physically present during the critical portions of the procedure and immediately available during the entire case, and (3) a back-up attending is designated should the primary attending not be immediately available. The patient has had a chance to review all the listed information, has been given print outs detailing this information, and has had all his/her questions answered to their satisfaction. It was my pleasure to have seen and examined Lico Jaime. In our visit today we have had a chance to go over my understanding of our patient's current condition, the natural course history without intervention and various interventional options. Questions were invited and answered, and the patient wishes to proceed as outlined above. I have seen and examined the patient for 25 minutes and we have spent more than 50% of the time in repeat and detailed counseling about the patient's condition, its natural course history with out and as much as can be predicted with surgery and re-review of various surgical treatment options. In conclusion, Lico Jaime and his requested we proceed with the above suggested surgery and are willing to accept risks and limitations of the suggested surgery as nature of the disease process and our best attempts at treatment for the condition. Thank you again for allowing us to be part of your patient's care. Please don't hesitate to contact me if you have any further questions. Signed and authenticated by: Teddy Pereyra DO [facility] [address] [address]
[2021-04-25] MEDS: INSULIN ASPART (NovoLOG) 100 UNIT/ML VIAL SQ SCH ×4 (08:25→23:33)
[2021-04-25] MEDS: lisinopriL 20 MG TAB PO SCH (08:29)
[2021-04-25] MEDS: GABAPENTIN 300 MG CAP PO SCH ×3 (08:29→20:35)
[2021-04-25] MEDS: ATORVASTATIN 10 MG TAB PO SCH (08:29)
[2021-04-25] MEDS: DOCUSATE 100 MG CAP PO SCH ×2 (08:29→20:35)
[2021-04-25] MEDS: carvediloL 6.25 MG TAB PO SCH ×2 (08:29→19:38)
[2021-04-25] MEDS ORDERED: LACTATED RINGERS 1,000 ML IV ONE ×3 (09:56→16:57)
[2021-04-25 10:16] LABS: Glucose,Whole Blood 133 mg/dL (75-99)
[2021-04-25] MEDS ORDERED: TRANEXAMIC ACID 1,000 MG in SODIUM CHLORIDE 0.9% 100 ML IVPB ONE ×2 (10:37→10:38)
[2021-04-25] MEDS ORDERED: PROPOFOL 10 MG/ML 20 ML VIAL IV ONE (11:29)
[2021-04-25] MEDS ORDERED: HYDROmorphone (PF) 1 MG/ML ONE (11:29)
[2021-04-25] MEDS ORDERED: LIDOCAINE 1% INJ 10MG/ML (20 ML MDV) ONE (11:29)
[2021-04-25] MEDS ORDERED: SUCCINYLCHOLINE CHLORIDE 100 MG/5 ML SYR IV ONE (11:29)
[2021-04-25] MEDS ORDERED: ROCURONIUM 10 MG/ML (5 ML VIAL) IV ONE (11:29)
[2021-04-25] MEDS ORDERED: PHENYLEPHRINE-0.9% NACL SYG 1,000 MCG/10 ML SYRINGE ONE (11:29)
[2021-04-25] MEDS ORDERED: MIDAZOLAM 2 MG/2 ML VIAL ONE (11:29)
[2021-04-25] MEDS ORDERED: KETAMINE 10 MG/ML 20 ML VIAL ONE (11:29)
[2021-04-25] MEDS ORDERED: fentaNYL (PF) 50 MCG/ML 2 ML AMP ONE (11:29)
[2021-04-25] MEDS ORDERED: TRANEXAMIC ACID 1,000 MG/10 ML VIAL ONE (11:29)
[2021-04-25] MEDS ORDERED: SODIUM CHLORIDE 0.9% 100 ML BAG ONE (11:29)
[2021-04-25] MEDS ORDERED: GELATIN SPONGE,ABSORB (LARGE) 1 EACH SPONGE MISCELLANE ONE (12:23)
[2021-04-25] MEDS ORDERED: LIDOCAINE 1%-EPI 1:100,000 20 ML VIAL SQ ONE ×2 (12:23)
[2021-04-25] MEDS ORDERED: BUPIVACAIN-EPI 0.25%-1:200,000 30 ML VIAL SQ ONE ×2 (12:23)
[2021-04-25] MEDS ORDERED: THROMBIN (BOVINE) 5,000 UNIT VIAL TOPICAL ONE (12:24)
[2021-04-25 13:13] LABS: African American GFR (CKD) 94.8 (60.0-200.0); Anion Gap 16.5 mmol/L (4.00-12.00); BUN/Creat Ratio 6.79 Ratio (12.00-20.00); Blood Urea Nitrogen 7.1 mg/dL (9.0-27.0); Carbon Dioxide 19.1 mmol/L (21.6-31.8); Non-African American GFR(CKD) 81.8 (60.0-200.0); Potassium 3.9 mmol/L (3.5-5.5)
[2021-04-25 15:39] LABS: Glucose,Whole Blood 151 mg/dL (75-99)
[2021-04-25] MEDS ORDERED: VANCOMYCIN 1,000 MG VIAL MISCELLANE ONE (16:56)
[2021-04-25] MEDS ORDERED: HYDROmorphone 1 MG/ML 1 ML SYRINGE IM PRN (17:25)
[2021-04-25] MEDS ORDERED: HYDROmorphone 0.5 MG/0.5 ML SYRINGE IVP ONE ×3 (17:39→18:06)
--- NOTE | 2021-04-25 18:06 | P.PN ---
Progress Note - Text Progress Note Date: 04/25/21 Brief Post Op: Surgeon: Roddy Pre op dx; L4-L5 grade 2 spondylolisthesis with neurogenic claudication bowel and bladder incontinence Post op dx: L4 bilateral pars fractures with L4-L5 grade 2 spondylolisthesis with neurogenic claudication bowel and bladder incontinence Procedure: Open reduction internal fixation L4-L5 with decompression and fusion L4-L5 Anesthesia: GETA EBL: 200 Fluids: 2000 UO: 1500 Dispo: Stable to PACU Post op Plan: Post operative noncontrasted CT scan Encourage ambulation IS 10x/hr Teds/SCDs Pain control Obtain LSO brace Record Drain output
[2021-04-25] MEDS: HYDROmorphone 0.5 MG/0.5 ML SYRINGE IVP PRN ×2 (20:35→23:40)
[2021-04-25 21:25] LABS: Glucose,Whole Blood 143 mg/dL (75-99)
[2021-04-26] MEDS: SODIUM CHLORIDE 0.9% 1,000 ML IV SCH ×2 (03:32→05:12)
[2021-04-26] MEDS: HYDROmorphone 0.5 MG/0.5 ML SYRINGE IVP PRN ×2 (03:49→07:38)
[2021-04-26] MEDS: DEXAMETHASONE SOD PHOSPHATE 4 MG/ML 1 ML VIAL IV SCH ×4 (05:11→23:29)
[2021-04-26 07:03] LABS: Glucose,Whole Blood 152 mg/dL (75-99)
[2021-04-26] MEDS: IPRATROPIUM 0.5 MG/2.5 ML NEBU INHALATION SCH ×4 (07:13→19:44)
[2021-04-26] MEDS: carvediloL 6.25 MG TAB PO SCH ×2 (07:39→17:19)
[2021-04-26] MEDS: lisinopriL 20 MG TAB PO SCH (07:39)
[2021-04-26] MEDS: GABAPENTIN 300 MG CAP PO SCH ×3 (07:40→21:30)
[2021-04-26] MEDS: ATORVASTATIN 10 MG TAB PO SCH (07:40)
[2021-04-26] MEDS: DOCUSATE 100 MG CAP PO SCH ×2 (07:40→21:30)
[2021-04-26] MEDS: INSULIN ASPART (NovoLOG) 100 UNIT/ML VIAL SQ SCH ×4 (07:40→21:37)
[2021-04-26] MEDS ORDERED: HYDROmorphone 1 MG/ML 1 ML SYRINGE IVP PRN (07:46)
--- NOTE | 2021-04-26 08:46 | P.PN ---
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 He is doing fairly well. He does complain of pain in his low back. It seems to be preventing him from getting up at this time but he is able to move around in bed fairly easily. He does state some numbness of his right foot. He states that the pain down his legs is better. He still having issues of bowel and bladder control. He has a Gonzalez currently. He denies any fevers chills shortness of breath or chest pain at this time. Objective - Vital Signs Vital signs: Vital Signs Temp 98.2 F 04/26/21 05:00 Pulse 68 04/26/21 07:24 Resp 16 04/26/21 07:24 BP 129/74 04/26/21 05:00 Pulse Ox 97 04/26/21 07:13 Intake & Output 04/25/21 04/26/21 04/26/21 18:59 06:59 18:59 Intake Total 2650 500 Output Total 1100 1800 800 Balance 1550 -1300 -800 Intake: IV 2650 Oral 500 Output: Urine 900 1800 800 Estimated Blood Loss 200 Other: Voiding Method Toilet Indwelling Catheter Urinal Diaper Incontinent - Exam PHYSICAL EXAMINATION: Vitals: Stable General: Awake, alert, appropriate for age, in no acute distress. HEENT: No unusual neck masses around region of lateral neck triangle, thyroid, supraclavicular groove. Extremities: Skin warm and dry without no acute lesions, coloration, temperature, skin intact, no tenderness or erythema. Integument: Hairy patches: Absent Dorsal skin dimples: Absent Cafe au lait spots: Absent Surgical incisions: None Palpation: Please see Pain drawing on Intake sheet for further detail. (Tenderness = T, Nontender = NT, Swelling = S, Ecchymosis = E) Findings on Midline and paraspinal palpation and percussion: Cervical: NT Thoracic: NT Lumbar: Midline tenderness Sacral: NT Special findings: Palpable step-off L4-L5 VASCULAR STATUS : Wrist Pulses: [2/4 bilateral radial and ulnar] Pedal Pulses: [2/4 bilateral DP and PT] Color: [Normal] Edema: [None] NEUROLOGIC EXAMINATION: Mental Status: Awake and alert, fully oriented, with normal attention, concentration and memory, and fluent, appropriate speech. Cranial Nerves: I: Olfactory not tested. II: Visual acuity normal, no visual field deficit noted with confrontation. III,IV: Normal pupillary reflexes & intact extraocular movements without nystagmus. V,: Intact symmetrical facial sensation. VII: Intact symmetrical facial motor movement VIII: Hearing intact. IX,X: Intact gag, swallow, & normal voice. XI: Sternocleidomastoid, trapezius function intact. XII: Tongue midline with normal movements. Special Tests: L'hermitte's Sign: Absent Spurling'Sign: Absent Bilateral Cubital percussion test: Absent Bilateral Natasha-Tinel sign - Carpal region: Absent Bilateral Straight Leg Raising: Absent Bilateral Motor Exam (0-5/5, N/T) STRENGTH UPPER EXTREMITY Shoulder Abd (Not part of FARIDEH Motor score): RIGHT [5] LEFT [5] Elbow Flexors: RIGHT [5] LEFT [5] Elbow Extensor: RIGHT [5] LEFT [5] Wrrist Dorsiflexors: RIGHT [5] LEFT [5] Finger Abductor: RIGHT [5] LEFT [5] Felt Pad Cutter: RIGHT [5] LEFT [5] LOWER EXTREMITY Hip Flexor (Not part of FARIDEH Motor Score): RIGHT 4 LEFT 4 Knee Flexor: RIGHT 4 LEFT 4 Knee Extensor: RIGHT 4 LEFT 4 Ankle Dorsiflexion: RIGHT 4+ LEFT 4+ Ankle Plantarflexion: RIGHT 4+ LEFT 4+ EHL: RIGHT 4 LEFT 4 FHL: RIGHT 4 LEFT 4 FARIDEH Motor Score: RIGHT 45/50 LEFT 45/50 REFLEXES Biecp: RIGHT [2] LEFT [2] Tricep: RIGHT [2] LEFT [2] Brachioradialis: RIGHT [2] LEFT [2] Patellar: RIGHT 3 LEFT 3 Achilles: RIGHT 3 LEFT 3 Pathological Reflexes Rodriguez's: RIGHT [Absent] LEFT [Absent] Babinski: RIGHT [Absent] LEFT [Absent] Clonus: RIGHT [None] LEFT [None] SENSORY Joint Position: [Intact bilaterally] Vibration [Intact bilaterally] Pain and LT sense [Intact C5-T1 and L2-S1] Dermatomal deficit L4 5 bilateral as well as perianal Gait and Functional Evaluation: Ambulatory aids: Cane Hand and finger dexterity intact bilaterally[]. Disdiadochokinesis examination negative[] bilaterally. - EENT Eyes: Present: PERRLA (CT exam is reviewed of the lumbar spine demonstrates demonstrates postsurgical changes L4-L5 there is interval reduction of the fracture and spondylolisthesis good cage placement and screw placement and safe positions. There is no evidence of, KE process at this time.) - Labs CBC & Chem 7: 04/24/21 13:40 04/24/21 13:40 Labs: Abnormal Lab Results - Last 24 Hours (Table) 04/24/21 04/25/21 04/25/21 Range/Units 13:40 10:14 15:37 Carbon Dioxide 19.1 L (21.6-31.8) mmol/L Anion Gap 16.50 H (4.00-12.00) mmol/L BUN 7.1 L (9.0-27.0) mg/dL BUN/Creatinine Ratio 6.79 L (12.00-20.00) Ratio POC Glucose (mg/dL) 133 H 151 H (75-99) mg/dL 04/25/21 04/26/21 Range/Units 21:21 06:59 Carbon Dioxide (21.6-31.8) mmol/L Anion Gap (4.00-12.00) mmol/L BUN (9.0-27.0) mg/dL BUN/Creatinine Ratio (12.00-20.00) Ratio POC Glucose (mg/dL) 143 H 152 H (75-99) mg/dL Assessment and Plan Assessment: POD 1 L4-5 reduction decompression and fusion. 1. L4-5 Grade II spondylolisthesis with stenosis 2. L4 bilateral pars fractures 3. Neurogenic Claudication 4. B/L LE weakness 5. Bowel bladder incontinence incomplete cauda Plan: -Appreciate learning and development consultant and team management. -Activity: Ambulate QID, OOB all meals, up and about, limit lifting bending twisting to less than 5 lbs. Use walker or cane if needed for stability. -Daily PT/OT, increase ambulation strength and balance. -Brace when up and about, not needed in bed or chair -Pain control: Adequate at this time -Meds: reviewed -GI ppx: senna, Miralax -DC gonzalez when up and about, bedside commode if needed -DVT PPX: OK to restart Heparin tonight -Hygiene: Shower today. Maintain dressing clean and dry. Meticulous cleaning after BMs away from incision site -Drains: none -Encourage IS 10x/hr -Dispo: Pending
--- NOTE | 2021-04-26 08:47 | CT ---
"EXAMINATION TYPE: CT lumbar spine wo con DATE OF EXAM: 04/26/2021 COMPARISON: CT lumbar spine 03/30/2021 HISTORY: Post op lumbar fusion CT DLP: 448.2 mGycm Automated exposure control for dose reduction was used. An unenhanced CT of the lumbar spine was performed. Bone and soft tissue window settings are submitt ed as well as coronal and sagittal reconstructions. FINDINGS: There has been interval posterior fusion L4-5, and intravertebral spacing block is present. Scattered gas density foci present along the spinal canal extending cephalad to the margins of the exam at T12 as well as extending distally into the sacral region, throughout the lumbar region and within the stone bcutaneous soft tissues, paraspinal musculature. There is an air bubble centrally within the spinal c anal on axial image 37 with smaller gas bubbles also centrally within the canal at this level. Gas de nsity also present along the distribution of the left S2 nerve root. There is streak artifact causing limitation at the site of patient's hardware. Patient shows laminectomy changes at the site of poste rior fusion. There is improvement in patient's listhesis, only minimal grade 1 anterolisthesis present L4-5, there is a persistent retrolisthesis L5-S1. Spondylolysis changes are again noted at L4 bilaterally. L1-L2: Normal disc space height. No disc herniation protrusion or central stenosis. No facet joint arthropathy. No evidence for foraminal encroachment. L2-L3: Normal disc space height. No disc herniation protrusion or central stenosis. No facet joint arthropathy. No evidence for foraminal encroachment. L3-L4: Normal disc space height. No disc herniation protrusion or central stenosis. No facet joint arthropathy. No evidence for foraminal encroachment. L4-L5: Postop changes as described. Circumferential extension of endplates may encroach on the forami na. L5-S1: Posterior extension endplate disc complex is again noted and may contact the proximal S1 nerve roots, anterior thecal sac IMPRESSION: Cannot exclude intradural gas density, there is gas density within the spinal canal, correlate for po ssible dural tear, infection. A Red level critical message alert has been initiated for Scot Almonte MD via the [facility] 0 | Critical Results System on 04/26/2021 8:43 AM. This message alert has been sent to Scot nix MD via the preferences provided by the clinician for the receipt of Radiology Critical Findings. Message ID [id number]."
--- NOTE | 2021-04-26 09:08 | XR ---
EXAM TYPE: LUMBAR SPINE X RAY SERIES COMPARISON: NONE HISTORY: Postop TECHNIQUE: 9 views are submitted. FINDINGS: Images are limited resolution due to intraoperative technique. Postsurgical changes are seen with gra de 1 anterolisthesis L4 on L5. IMPRESSION: 1. Postoperative
[2021-04-26] MEDS: HYDROcodone/APAP 10-325MG 1 EACH TAB PO PRN ×2 (09:09→15:36)
[2021-04-26] MEDS: CYCLOBENZAPRINE 10 MG TAB PO PRN ×2 (09:10→15:36)
--- NOTE | 2021-04-26 09:10 | FL ---
EXAMINATION TYPE: FL guidance operating room DATE OF EXAM: 04/25/2021 HISTORY: Fluoroscopy time 46 seconds of fluoroscopy provided. IMPRESSION: 1. Fluoroscopy time.
[2021-04-26 11:51] LABS: Glucose,Whole Blood 209 mg/dL (75-99)
[2021-04-26 17:03] LABS: Glucose,Whole Blood 129 mg/dL (75-99)
[2021-04-26] MEDS: MORPHINE SULFATE 4 MG/ML SYRINGE IVP PRN (19:25)
[2021-04-26 21:21] LABS: Glucose,Whole Blood 212 mg/dL (75-99)
[2021-04-27] MEDS: MORPHINE SULFATE 4 MG/ML SYRINGE IVP PRN ×2 (02:42→08:52)
[2021-04-27] MEDS: DEXAMETHASONE SOD PHOSPHATE 4 MG/ML 1 ML VIAL IV SCH (05:15)
[2021-04-27] MEDS: SODIUM CHLORIDE 0.9% 1,000 ML IV SCH ×2 (05:57→20:09)
[2021-04-27 07:03] LABS: Glucose,Whole Blood 186 mg/dL (75-99)
[2021-04-27] MEDS: IPRATROPIUM 0.5 MG/2.5 ML NEBU INHALATION SCH ×4 (07:10→19:48)
[2021-04-27 07:48] LABS: HCT 42.8 % (39.0-53.0); HGB 14.6 gm/dL (13.0-17.5); MCH 31.2 pg (25.0-35.0); MCV 91.8 fL (80.0-100.0); Platelet Count 234 k/uL (150-450); RBC 4.66 m/uL (4.30-5.90); RDW 12.4 % (11.5-15.5); WBC 16.6 k/uL (3.8-10.6)
[2021-04-27] MEDS: ATORVASTATIN 10 MG TAB PO SCH (08:41)
[2021-04-27] MEDS: GABAPENTIN 300 MG CAP PO SCH ×3 (08:41→22:35)
[2021-04-27] MEDS: lisinopriL 20 MG TAB PO SCH (08:41)
[2021-04-27] MEDS: carvediloL 6.25 MG TAB PO SCH ×2 (08:41→16:39)
[2021-04-27] MEDS: INSULIN ASPART (NovoLOG) 100 UNIT/ML VIAL SQ SCH ×4 (08:41→22:37)
[2021-04-27] MEDS: DOCUSATE 100 MG CAP PO SCH ×2 (08:41→22:40)
[2021-04-27] MEDS: polyethylene glycoL 3350 17 GM POWD.PACK PO SCH (08:41)
[2021-04-27] MEDS: SENNOSIDES 8.6 MG TAB PO SCH ×2 (08:41→22:40)
[2021-04-27] MEDS: HYDROcodone/APAP 10-325MG 1 EACH TAB PO PRN ×2 (10:57→20:01)
--- NOTE | 2021-04-27 11:12 | P.PN ---
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 He states he feels much better today he has been up and walking around the room. He states some numbness in his right foot still. He states difficulty with urinary and bowel movements as he still does not know when they are coming. He frequently uses the bathroom in order to avoid accidents but he did have 2 yesterday. He has not had a bowel movement yet. He does not complain of any distention of his bowel. He denies any fevers or chills. He denies any new symptoms. He states that he feels like he can walk further and that his legs are stronger. Objective - Vital Signs Vital signs: Vital Signs Temp 99.2 F 04/27/21 04:40 Pulse 82 04/27/21 07:28 Resp 18 04/27/21 04:40 BP 117/78 04/27/21 04:40 Pulse Ox 98 04/27/21 07:11 Intake & Output 04/26/21 04/27/21 04/27/21 18:59 06:59 18:59 Intake Total 500 Output Total 1500 Balance -1500 500 Intake: Oral 500 Output: Urine 1500 Other: Voiding Method Indwelling Catheter Urinal # Voids 1 - Exam Exam is stable today. He does have increased strength in his dorsiflexion and plantar flexion bilaterally and seems to have better control of these. He still having numbness over his right foot on the plantar surface. He still has diff icult sensation in his scrotum and perineal region however he is able to feel his penis completely. His perirectal sensation is somewhat better. PHYSICAL EXAMINATION: Vitals: Stable General: Awake, alert, appropriate for age, in no acute distress. HEENT: No unusual neck masses around region of lateral neck triangle, thyroid, supraclavicular groove. Extremities: Skin warm and dry without no acute lesions, coloration, temperature, skin intact, no tenderness or erythema. Integument: Hairy patches: Absent Dorsal skin dimples: Absent Cafe au lait spots: Absent Surgical incisions: None Palpation: Please see Pain drawing on Intake sheet for further detail. (Tenderness = T, Nontender = NT, Swelling = S, Ecchymosis = E) Findings on Midline and paraspinal palpation and percussion: Cervical: NT Thoracic: NT Lumbar: Midline tenderness Sacral: NT Special findings: Palpable step-off L4-L5 VASCULAR STATUS : Wrist Pulses: [2/4 bilateral radial and ulnar] Pedal Pulses: [2/4 bilateral DP and PT] Color: [Normal] Edema: [None] NEUROLOGIC EXAMINATION: Mental Status: Awake and alert, fully oriented, with normal attention, concentration and memory, and fluent, appropriate speech. Cranial Nerves: I: Olfactory not tested. II: Visual acuity normal, no visual field deficit noted with confrontation. III,IV: Normal pupillary reflexes & intact extraocular movements without nystagmus. V,: Intact symmetrical facial sensation. VII: Intact symmetrical facial motor movement VIII: Hearing intact. IX,X: Intact gag, swallow, & normal voice. XI: Sternocleidomastoid, trapezius function intact. XII: Tongue midline with normal movements. Special Tests: L'hermitte's Sign: Absent Spurling'Sign: Absent Bilateral Cubital percussion test: Absent Bilateral Natasha-Tinel sign - Carpal region: Absent Bilateral Straight Leg Raising: Absent Bilateral Motor Exam (0-5/5, N/T) STRENGTH UPPER EXTREMITY Shoulder Abd (Not part of FARIDEH Motor score): RIGHT [5] LEFT [5] Elbow Flexors: RIGHT [5] LEFT [5] Elbow Extensor: RIGHT [5] LEFT [5] Wrrist Dorsiflexors: RIGHT [5] LEFT [5] Finger Abductor: RIGHT [5] LEFT [5] Business Intelligence Etl Developer: RIGHT [5] LEFT [5] LOWER EXTREMITY Hip Flexor (Not part of FARIDEH Motor Score): RIGHT 4 LEFT 4 Knee Flexor: RIGHT 4 LEFT 4 Knee Extensor: RIGHT 4 LEFT 4 Ankle Dorsiflexion: RIGHT 4+ LEFT 4+ Ankle Plantarflexion: RIGHT 4+ LEFT 4+ EHL: RIGHT 4 LEFT 4 FHL: RIGHT 4 LEFT 4 FARIDEH Motor Score: RIGHT 45/50 LEFT 45/50 REFLEXES Biecp: RIGHT [2] LEFT [2] Tricep: RIGHT [2] LEFT [2] Brachioradialis: RIGHT [2] LEFT [2] Patellar: RIGHT 3 LEFT 3 Achilles: RIGHT 3 LEFT 3 Pathological Reflexes Rodriguez's: RIGHT [Absent] LEFT [Absent] Babinski: RIGHT [Absent] LEFT [Absent] Clonus: RIGHT [None] LEFT [None] SENSORY Joint Position: [Intact bilaterally] Vibration [Intact bilaterally] Pain and LT sense [Intact C5-T1 and L2-S1] Dermatomal deficit L4 5 bilateral as well as perianal Gait and Functional Evaluation: Ambulatory aids: Cane Hand and finger dexterity intact bilaterally[]. Disdiadochokinesis examination negative[] bilaterally. - Labs CBC & Chem 7: 04/27/21 06:56 04/24/21 13:40 Labs: Abnormal Lab Results - Last 24 Hours (Table) 04/26/21 04/26/21 04/26/21 Range/Units 11:48 16:57 21:20 WBC (3.8-10.6) k/uL POC Glucose (mg/dL) 209 H 129 H 212 H (75-99) mg/dL 04/27/21 04/27/21 Range/Units 06:56 07:00 WBC 16.6 H (3.8-10.6) k/uL POC Glucose (mg/dL) 186 H (75-99) mg/dL Assessment and Plan Assessment: POD 2 L4-5 reduction decompression and fusion. 1. L4-5 Grade II spondylolisthesis with stenosis 2. L4 bilateral pars fractures 3. Neurogenic Claudication 4. B/L LE weakness 5. Bowel bladder incontinence incomplete cauda Plan: -Appreciate image consultant and team management. -Activity: Ambulate QID, OOB all meals, up and about, limit lifting bending twisting to less than 5 lbs. Use walker or cane if needed for stability. -Daily PT/OT, increase ambulation strength and balance. -Brace when up and about, not needed in bed or chair -Pain control: Adequate at this time -Meds: reviewed -GI ppx: senna, Miralax -DC gonzalez when up and about, bedside commode if needed -DVT PPX: OK to restart Heparin tonight -Hygiene: Shower today. Maintain dressing clean and dry. Meticulous cleaning after BMs away from incision site -Drains: none -Encourage IS 10x/hr -Dispo: Home with home health care likely tomorrow I discussed the patient's care and plan with him he was comfortable with that. We did discuss adding a thoracic MRI for visualization of the rest of his spine as he did have a trauma and would be good to rule out any other issues. He states at this time he does not want this performed I encouraged him to do it however to rule out any other compressive pathologies which could be causing his bowel and bladder issues he does not have overt signs and symptoms of thoracic myelopathy however it is hard to rule out. He is comfortable with this and does not want an MRI at this time. We will continue to follow him clinically and he will likely go home tomorrow.
[2021-04-27 11:30] LABS: Glucose,Whole Blood 194 mg/dL (75-99)
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
[2021-04-27] MEDS: CYCLOBENZAPRINE 10 MG TAB PO PRN (14:52)
[2021-04-27] MEDS ORDERED: bisacodyL 10 MG SUPP RECTAL STA (14:55)
[2021-04-27 16:25] LABS: African American GFR (CKD) 99.4 (60.0-200.0); Anion Gap 13.7 mmol/L (4.00-12.00); BUN/Creat Ratio 12.28 Ratio (12.00-20.00); Blood Urea Nitrogen 12.4 mg/dL (9.0-27.0); Calcium 8.6 mg/dL (8.7-10.3); Carbon Dioxide 18.3 mmol/L (21.6-31.8); Non-African American GFR(CKD) 85.7 (60.0-200.0); Potassium 4.3 mmol/L (3.5-5.5)
[2021-04-27 17:03] LABS: Glucose,Whole Blood 415 mg/dL (75-99)
[2021-04-27 20:09] LABS: Glucose,Whole Blood 169 mg/dL (75-99)
[2021-04-27 22:14] LABS: Glucose,Whole Blood 137 mg/dL (75-99)
[2021-04-28] MEDS: HYDROcodone/APAP 10-325MG 1 EACH TAB PO PRN ×2 (02:26→09:57)
[2021-04-28] MEDS: CYCLOBENZAPRINE 10 MG TAB PO PRN ×2 (04:16→13:25)
[2021-04-28 07:03] LABS: Glucose,Whole Blood 134 mg/dL (75-99)
[2021-04-28 07:04] LABS: Basophils % (A) 0 %; Eosinophils # (A) 0.1 k/uL (0-0.7); Eosinophils % (A) 1 %; HCT 43.6 % (39.0-53.0); HGB 14.6 gm/dL (13.0-17.5); Lymphocytes # (A) 2.9 k/uL (1.0-4.8); Lymphocytes % (A) 22 %; MCH 30.8 pg (25.0-35.0); MCHC 33.5 g/dL (31.0-37.0); MCV 91.8 fL (80.0-100.0); Mean Platelet Volume 7.9; Monocytes # (A) 0.8 k/uL (0-1.0); Monocytes % (A) 6 %; Neutrophils # (A) 9.3 k/uL (1.3-7.7); Neutrophils % (A) 69 %; Platelet Count 237 k/uL (150-450); RBC 4.75 m/uL (4.30-5.90); RDW 12.3 % (11.5-15.5); WBC 13.3 k/uL (3.8-10.6)
[2021-04-28] MEDS: IPRATROPIUM 0.5 MG/2.5 ML NEBU INHALATION SCH ×2 (07:28→11:31)
[2021-04-28 07:45] LABS: Potassium 3.6 mmol/L (3.5-5.1)
[2021-04-28 07:46] LABS: African American GFR (CKD) >90 (>60 ml/min/1.73 sqM); Anion Gap 8 mmol/L; Blood Urea Nitrogen 11 mg/dL (9-20); Calcium 8.5 mg/dL (8.4-10.2); Carbon Dioxide 23 mmol/L (22-30); Chloride 105 mmol/L (98-107); Glucose 122 mg/dL (74-99); Non-African American GFR(CKD) >90 (>60 ml/min/1.73 sqM); Sodium 136 mmol/L (137-145)
[2021-04-28] MEDS: carvediloL 6.25 MG TAB PO SCH (08:21)
[2021-04-28] MEDS: INSULIN ASPART (NovoLOG) 100 UNIT/ML VIAL SQ SCH ×2 (08:21→12:09)
[2021-04-28] MEDS: lisinopriL 20 MG TAB PO SCH (08:21)
[2021-04-28] MEDS: polyethylene glycoL 3350 17 GM POWD.PACK PO SCH (08:22)
[2021-04-28] MEDS: SENNOSIDES 8.6 MG TAB PO SCH (08:22)
[2021-04-28] MEDS: DOCUSATE 100 MG CAP PO SCH (08:22)
[2021-04-28] MEDS: ATORVASTATIN 10 MG TAB PO SCH (08:22)
[2021-04-28] MEDS: GABAPENTIN 300 MG CAP PO SCH (08:22)
--- NOTE | 2021-04-28 10:57 | P.PN ---
Subjective Progress Note Date: 04/25/21 Principal diagnosis: pen reduction internal fixation of L4-L5 with decompression and fusion L4-L5. Patient is a 51-year-old male with a known history of hypertension, COPD, diabet es type 2 insulin-dependent, low back pain and recent history of fall and currently everyday smoker was sent from orthopedic surgery clinic for L4-L5 lumbar disc decompression. Patient does have history of chronic low back pain and also recent history of fall. Patient developed bowel and bladder i ncontinence intermittently for the past 2 weeks and also having multiple falls due to lax giving away and claudication with ambulation. Denied any numbness or tingling sensation. Patient was seen in the orthopedic surgery clinic and referred to ER for possible surgery tomorrow. Patient currently denied any complaints of chest pain or shortness of breath. No headache or dizziness or lightheadedness. No fever no chills. No cough or sputum production. Patient is saturating at 97% on room air. Laboratory data showed WBC 6.1 hemoglobin 16.4 and platelets 195 Sodium 137 potassium 3.8 chloride 106 BUN 18 creatinine 0.9 to and blood sugar is 128 Liver enzymes are not elevated. COVID-19 PCR not detected. Patient had CT of the lumbar spine on 03/30/2021 showed grade 2 on stable spondylolisthesis with spondylolysis off L4-L5 with bilateral pars defects. Severe central and foraminal stenosis, face acute overgrowth. No other acute fractures noted. X-ray of the lumbar spine on 04/24/2021 at the physician's office showed unstable grade 2 spondylolisthesis of L4-L5 with what appears to be acute on chronic changes with bilateral posterior defects as well as physical overgrowth. There is severe foraminal stenosis bilaterally due to this as well as central noted. 04/25/2021 Patient is currently resting in the bed. Complains of back pain. Patient is scheduled for surgery today. Patient underwent open reduction internal fixation of L4-L5 with decompression and fusion L4-L5. Otherwise patient is hemodynamically stable. Blood sugar is controlled. Currently on pain management and orthopedic surgery is following. Current medications reviewed. Objective - Vital Signs Vital signs: Vital Signs Temp 97.5 F L 04/25/21 17:23 Pulse 83 04/25/21 20:30 Resp 18 04/25/21 19:48 BP 115/66 04/25/21 18:30 Pulse Ox 99 04/25/21 18:30 Intake & Output 04/25/21 04/25/21 04/26/21 06:59 18:59 06:59 Intake Total 800 2650 0 Output Total 1100 Balance 800 1550 0 Intake: IV 2650 Oral 800 0 Output: Urine 900 Estimated Blood Loss 200 Other: Voiding Method Toilet Toilet Indwelling Catheter Urinal Urinal Diaper Diaper Incontinent Incontinent # Voids 2 - Exam PHYSICAL EXAMINATION: Patient is lying in the bed comfortably, no acute distress, awake alert and oriented.. HEENT: Normocephalic. Neck is supple. Pupils reactive. Nostrils clear. Oral cavity is moist. Neck reveals no JVD, carotid bruits, or thyromegaly. CHEST EXAMINATION: Trachea is central. Symmetrical expansion. Lung larson clear to auscultation and percussion. CARDIAC: Normal S1, S2 with no gallops. No murmurs ABDOMEN: Soft. Bowel sounds normal. No organomegaly. No abdominal bruits. Extremities: reveal no edema. No clubbing or cyanosis Neurologically awake, alert, oriented x3 with well-coordinated movements. No focal deficits noted Mid lower back and paraspinal mild tenderness. Skin: No rash or skin lesions. Psychiatric: Coperative. Nonsuicidal Musculoskeletal: No joint swelling or deformity. Normal range of motion. - Labs CBC & Chem 7: 04/28/21 06:29 04/28/21 06:29 Labs: Abnormal Lab Results - Last 24 Hours (Table) 04/24/21 04/25/21 04/25/21 Range/Units 13:40 07:09 10:14 Carbon Dioxide 19.1 L (21.6-31.8) mmol/L Anion Gap 16.50 H (4.00-12.00) mmol/L BUN 7.1 L (9.0-27.0) mg/dL BUN/Creatinine Ratio 6.79 L (12.00-20.00) Ratio POC Glucose (mg/dL) 239 H 133 H (75-99) mg/dL 04/25/21 04/25/21 Range/Units 15:37 21:21 Carbon Dioxide (21.6-31.8) mmol/L Anion Gap (4.00-12.00) mmol/L BUN (9.0-27.0) mg/dL BUN/Creatinine Ratio (12.00-20.00) Ratio POC Glucose (mg/dL) 151 H 143 H (75-99) mg/dL Assessment and Plan Assessment: Acute on chronic low back pain with unstable spondylolisthesis with spondylolysis L4-L5. s/p open reduction internal fixation of L4-L5 with decompression and fusion L4-L5. Intermittent bowel and bladder incontinence Claudication in the bilateral lower extremities Recent history of falls about 2-3 weeks ago Diabetes type 2 insulin-dependent pressure is controlled Hypertension Currently with a smoker DVT prophylaxis with SCDs. Not on heparin due to scheduled spinal surgery.. Plan: Patient will be continued on Coreg 6.25 mg twice a day and enalapril/lisinopril 20 mg daily for better blood pressure control. Continue with insulin regimen titration dose as needed. Patient on flexeril. decadron Dced. Continue with Dilaudid for pain management. Orthopedic surgery is following. s/p decompression of L4-L5. Encourage incentive spirometry. Continue with the breathing treatments. We will continue to follow closely and further recommendations based on the clinical course.
--- NOTE | 2021-04-28 10:58 | P.PN ---
Subjective Progress Note Date: 04/26/21 Principal diagnosis: pen reduction internal fixation of L4-L5 with decompression and fusion L4-L5. Patient is a 51-year-old male with a known history of hypertension, COPD, diabet es type 2 insulin-dependent, low back pain and recent history of fall and currently everyday smoker was sent from orthopedic surgery clinic for L4-L5 lumbar disc decompression. Patient does have history of chronic low back pain and also recent history of fall. Patient developed bowel and bladder i ncontinence intermittently for the past 2 weeks and also having multiple falls due to lax giving away and claudication with ambulation. Denied any numbness or tingling sensation. Patient was seen in the orthopedic surgery clinic and referred to ER for possible surgery tomorrow. Patient currently denied any complaints of chest pain or shortness of breath. No headache or dizziness or lightheadedness. No fever no chills. No cough or sputum production. Patient is saturating at 97% on room air. Laboratory data showed WBC 6.1 hemoglobin 16.4 and platelets 195 Sodium 137 potassium 3.8 chloride 106 BUN 18 creatinine 0.9 to and blood sugar is 128 Liver enzymes are not elevated. COVID-19 PCR not detected. Patient had CT of the lumbar spine on 03/30/2021 showed grade 2 on stable spondylolisthesis with spondylolysis off L4-L5 with bilateral pars defects. Severe central and foraminal stenosis, face acute overgrowth. No other acute fractures noted. X-ray of the lumbar spine on 04/24/2021 at the physician's office showed unstable grade 2 spondylolisthesis of L4-L5 with what appears to be acute on chronic changes with bilateral posterior defects as well as physical overgrowth. There is severe foraminal stenosis bilaterally due to this as well as central noted. 04/25/2021 Patient is currently resting in the bed. Complains of back pain. Patient is scheduled for surgery today. Patient underwent open reduction internal fixation of L4-L5 with decompression and fusion L4-L5. Otherwise patient is hemodynamically stable. Blood sugar is controlled. Currently on pain management and orthopedic surgery is following. 04/26/2021 Patient is currently sitting in the chair comfortably. Able to ambulate with a walker. No complaints of chest pain or shortness breath. Back pain is fairly controlled with medications. No headache or dizziness or lightheadedness. Blood sugar is controlled. No fever no chills. Discussed the patient and his at the bedside in detail. Current medications reviewed. Objective - Vital Signs Vital signs: Vital Signs Temp 100 F H 04/26/21 19:40 Pulse 89 04/26/21 19:55 Resp 20 04/26/21 19:40 BP 116/71 04/26/21 19:40 Pulse Ox 94 L 04/26/21 19:40 Intake & Output 04/26/21 04/26/21 04/27/21 06:59 18:59 06:59 Intake Total 500 100 Output Total 1800 1500 Balance -1300 -1500 100 Intake: Oral 500 100 Output: Urine 1800 1500 Other: Voiding Method Indwelling Catheter Indwelling Catheter - Exam PHYSICAL EXAMINATION: Patient is lying in the bed comfortably, no acute distress, awake alert and oriented.. HEENT: Normocephalic. Neck is supple. Pupils reactive. Nostrils clear. Oral cavity is moist. Neck reveals no JVD, carotid bruits, or thyromegaly. CHEST EXAMINATION: Trachea is central. Symmetrical expansion. Lung larson clear to auscultation and percussion. CARDIAC: Normal S1, S2 with no gallops. No murmurs ABDOMEN: Soft. Bowel sounds normal. No organomegaly. No abdominal bruits. Extremities: reveal no edema. No clubbing or cyanosis Neurologically awake, alert, oriented x3 with well-coordinated movements. No focal deficits noted Mid lower back and paraspinal mild tenderness. Skin: No rash or skin lesions. Psychiatric: Coperative. Nonsuicidal Musculoskeletal: No joint swelling or deformity. Normal range of motion. - Labs CBC & Chem 7: 04/28/21 06:29 04/28/21 06:29 Labs: Abnormal Lab Results - Last 24 Hours (Table) 04/26/21 04/26/21 04/26/21 Range/Units 06:59 11:48 16:57 POC Glucose (mg/dL) 152 H 209 H 129 H (75-99) mg/dL 04/26/21 Range/Units 21:20 POC Glucose (mg/dL) 212 H (75-99) mg/dL Assessment and Plan Assessment: Acute on chronic low back pain with unstable spondylolisthesis with spondylolysis L4-L5. s/p open reduction internal fixation of L4-L5 with decompression and fusion L4-L5 on 04/25/21. Intermittent bowel and bladder incontinence Claudication in the bilateral lower extremities Recent history of falls about 2-3 weeks ago Diabetes type 2 insulin-dependent pressure is controlled Hypertension Currently with a smoker DVT prophylaxis with SCDs. Not on heparin due to scheduled spinal surgery.. Plan: Patient will be continued on Coreg 6.25 mg twice a day and enalapril/lisinopril 20 mg daily for better blood pressure control. Continue with insulin regimen titration dose as needed. Patient on flexeril. decadron Dced. Continue with Dilaudid for pain management. Orthopedic surgery is following. s/p decompression of L4-L5. Encourage incentive spirometry. Continue with the breathing treatments. We will continue to follow closely and further recommendations based on the clinical course.
[2021-04-28 11:57] LABS: Glucose,Whole Blood 103 mg/dL (75-99)
--- NOTE | 2021-04-28 12:22 | P.DS ---
Providers Date of admission: 04/26/21 00:47 Expected date of discharge: 04/28/21 Attending physician: Teddy Pereyra DO Consults: 04/24/21 11:45 Consult Physician Routine Consulting Provider: Scot Almonte Consult Reason/Comments: Preop Do you want consulting provider notified?: Already Contacted Primary care physician: Savana [facility] Course: Date of admission: 04/24/2021 Date of discharge: 04/28/2021 Admission diagnosis: Grade 2 L4-L5 spondylolisthesis, incomplete cauda equina syndrome Discharge diagnosis: Status post L4-L5 reduction with decompression and fusion, incomplete cauda equina Attending physician: Dr. Pereyra Surgical procedures: L4-L5 reduction with decompression and fusion Brief history: Patient is a 51-year-old male who was evaluated by Dr. Pereyra in the outpatient setting on 04/24/2021. Patient presented to the office that date with regards to severe back pain along with bowel or bladder incontinence. Patient has a history of a previous trauma many years ago to his low back. Patient admitted to the bowel and bladder issues for about 2 weeks. Hospital course: Details of patient's surgery can be found in operative report. Patient tolerated the procedure well and was subsequently transported to orthopedic floor. Patient's orthopeidc and medical care was provided daily. Patient had daily laboratory tests performed for evaluation of overall blood counts. Patient had daily physical therapy to include strengthening range of motion as well as education with walker ambulation. Patient was noted to have a relatively uneventful postoperative course. Patient was noted to continue with both bowel and bladder incontinence after surgery, Dr. Pereyra did discuss this with the patient prior to surgery and after surgery. Patient reported satisfactory pain control with oral pain medications by postoperative day 0. Patient showed satisfactory progress with physical therapy. Patient moved steadily through the program and had no difficulty meeting the goals by postoperative day 3. Given patient's otherwise satisfactory course and having met physical therapy goals, plan is to discharge patient home on postoperative day 3. Discharge condition/disposition: Patient will be discharged home in stable condition. We are recommending that the patient follow-up with urology in the outpatient setting for further evaluation of the bladder incontinence. Discharge medications: Instructions are given on resumption of patient's normal daily medications per primary care recommendation, in addition patient will be prescribed Hockessin 10 mg/325 mg, Flexeril 10 mg, gabapentin 300 mg, Duricef, Senokot, Colace. Spine Discharge and Recovery Instructions Dressing: Leave your dressing in place for a total of 5 days post operatively. Then you may remove your dressing and leave open to air. Keep the area clean and if not able to keep area clean, then cover with sterile gauze and tape. Showering: You may shower 3 days after your procedure allowing soap and water to run over incision. Do not scrub. Do not soak. Blot dry. Follow up: Please confirm a follow up appointment with your surgeon 3 weeks post operatively. Please make an appointment to follow up with your PCP in 1-2 weeks after surgery for evaluation 3 phase, 3-week plan POST OP WEEKS 1-3 1. Lifting/carrying/pushing/pulling limited to less than 5 pounds. 2. Do not sit for longer than 15 minutes at one time. Get up and walk around. Prolonged sitting is NOT advised. If you lay down, see if you can tolerate laying down on you front (belly side) 3. Walk for periods of 15 minutes = 1 mile but no longer; do it multiple times times each day. 4. Ice your low back after activity. POST OP WEEKS 3-6 1. Lifting limited to less than 20 pounds. 2. Do not sit for longer than 30 minutes at a time. Frequently change positions. Use a sit-to stand workstation or take frequent breaks from sitting if you have returned to work. 3. Walk for 30 minutes each day. If possible, do these three or more times a day POST OP WEEKS 6+ At your 6-week appointment we will give you a physical therapy referral to focus on a core stabilization and strengthening program. You should also work on leg & buttock strengthening, hamstring & quadriceps stretching, and continue a low impact aerobic activity program such as swimming, walking, or riding a stationary bicycle. During the initial 6 weeks after your surgery, you are at the highest risk of re-injuring your spine. You should generally avoid BLTs (bending, lifting and twisting combination motions) and follow the above guidelines to reduce the chance of reinjury. You can anticipate post op appointments in our office at approximately 3 weeks and 6 weeks after your surgery. INCISION CARE: If your incision is not draining you do NOT need to cover it with a dressing. Keep your incision clean, dry and intact. In most cases, we apply skin glue, vanessa or sutures to the incision at the time of surgery. This will be like a crust or have the appearance of a scab and will fall off in time on its own. The stitches or vanessa need to be removed at 3 weeks post op appointment. You may begin to shower 3 days after surgery (this allows the glue to jade well). However, please avoid scrubbing the incision site or peeling off any of the skin glue. This will ensure optimal healing of your incision. Also, during this time avoid soaking the incision area in water - this includes swimming pools, hot tubs or baths. No ointments, lotions or oils on the incision until your surgeon allows. Leave vanessa, sutures or glue in place. Neurological dysfunction that comes on suddenly can also be a sign of a stroke. Below some common symptoms of a stroke are listed: B - balance difficulty such as sudden onset walking or leaning to one side - NEW E - eye problem such as sudden double vision or trouble seeing on one side - NEW F - Facial weakness or numbness on one side - NEW A - Arm or leg weakness or numbness on one side - NEW S - Slurred speech or difficulty with word finding - NEW T - Time is BRAIN! Call 911 as soon as you recognize these symptoms Diet: Consume a regular diet rich in vegetables and lean protein such as chicken or fish. You should consume in a ratio of approximately 20% fats|40% carbohydrates|40%protein. Vegetables, sweet potatoes, brown rice or quinoa are examples of good carbohydrates. Chips, white bread, cookies and sweets/sugar are examples of bad carbohydrates. Limit your bad carbs, go wild with good carbs. "Life's Simple 7" Guidelines as per [place] [employer] These will help you reclaim your life after surgery and bagger and stock handler helper in your recovery, keeping in mind your restrictions. (1) Get Active. Physical activity can help people lose weight, control high blood pressure and cholesterol, feel emotionally better, and sleep better. (2) Control Cholesterol. Avoid a diet high in saturated fat, trans fat, & cho lesterol. Limit whole milk & cream, ice cream, butter, egg yolks, processed meats (like sausage and hot dogs), and fatty meats. Choose healthy foods that are low in saturated fat, trans fat and cholesterol which include: Fruits and vegetables, fiber rich grain products (like whole grain pasta and brown rice), lean meat such as chicken, fish, nuts, seeds, and legumes. (3) Eat Better. Eat small portions. Shop at the grocery with a list and do not stray from it. Tips for a healthy diet include: Limit sodium intake to less than 1500mg daily, avoid prepackaged, processed, and fast foods, choose a diet rich in fruits, vegetables, and whole grain, high fiber foods, and limit saturated & cholesterol in your diet. (4) Manage Blood Pressure. If you have high blood pressure, you should have a cuff at home so that you can check your blood pressure regularly. Be sure you have a good cuff. An arm one is generally better than a wrist one. Bring the cuff to a doctor's appointment to validate that the measurements that your cuff are taking are accurate. Take your blood pressure twice daily when you are sitting down and relaxing. Record the numbers in a log and bring this log with you to your doctors' appointments. (5) Lose Weight if your BMI is above 25. A healthy BMI is between 19-25. To calculate Your BMI, you may use a Standard BMI Calculator on the NIH BMI webs ite: <www.nhlbi.nih.gov/guidelines/obesity/BMI/bmicalc.htm>. Weigh oneself daily. If you are overweight, set a goal to lose weight. A pound a week loss if needed is a good target. (6) Reduce Blood Sugar. Limit foods and liquids with "added sugars." (Added sugars include sucrose, fructose, glucose, maltose, dextrose, high fructose corn syrup, corn syrup, concentrated fruit juice and honey). (7) Stop Smoking. If you smoke, quitting smoking is one of the best things that you can do for your health. Smoking increases your risk of heart attack, stroke, and peripheral vascular disease, which is a build-up of plaque in your arteries. Please discard all the cigarettes and lighters in your house. Have a plan for what you will do when you have the urge to smoke. Direct and second-hand smoke shortens your life as well as the lives of your family, friends and others around you. For your health and the health of those around you, please consider quitting! Proper Bending Body Mechanics: Maintain a wide stance with one foot slightly in front of the other. Keep your back straight. Bend utilizing the strength in your hips and knees. Do not bend at the waist. Maintain the lifted object at your waist-level close to your body. Avoid lifting weight that causes immediately pain or pain anywhere in the body afterwards. Smoking/Nicotine If there was ever one thing that you could do to increase your overall health, decrease your risk of cardiovascular problems by about 39% the second you make the choice, it is to STOP SMOKING. Your body's most instant gratification is the second you stop smoking. We have all heard the studies, read the articles but it is true, smoking is extremely bad for your overall health, and moreover it is detrimental to your bone health. Nicotine, IN ANY FORM, kills bone cells, prevents your body from healing fractures, and significantly prolongs healing after surgery. In spine surgery specifically, it increases your risk of not healing your bones to create a fusion and increases your risk of having a revision surgery due to this up to 60%. I know it is hard. I know it feels impossible. But there are ways. Take control of your life. We are here to help you through it. And when you are ready, ask us and we can direct you to help if you desire. Use the START Plan to Quit Smoking (please visit the Helpguide.org website listed below for more information): S = Set a quit date. Choose a date within the next 2 weeks, so you have enough time to prepare without losing your motivation to quit. If you mainly smoke at work, quit on the weekend, so you have a few days to adjust to the change. T = Tell family, friends, and co-workers that you plan to quit. Let your friends and family in on your plan to quit smoking and tell them you need their support and encouragement to stop. Look for a quit henrique who wants to stop smoking as well. You can help each other get through the rough times. A = Anticipate and plan for the challenges you'll face while quitting. Most people who begin smoking again do so within the first 3 months. You can help yourself make it through by preparing ahead for common challenges, such as nicotine withdrawal and cigarette cravings. R = Remove cigarettes and other tobacco products from your home, car, and work. Throw away all your cigarettes (no emergency pack!), lighters, ashtrays, and matches. Wash your clothes and freshen up anything that smells like smoke. Shampoo your car, clean your drapes and carpet, and steam your furniture. T = Talk to your doctor about getting help to quit. Your doctor can prescribe medication to help with withdrawal and suggest other alternatives. If you can't see a doctor, you can get many products over the counter at your local pharmacy or grocery store, including the nicotine patch, nicotine lozenges, and nicotine gum. Resources for Quitting Smoking: <https://www.[place].gov/documents/[facility]/Quit_Tobacco_Resources_for_patients_313 480_7.pdf> Supplementation: Take recommended dosages of Vitamin D and Calcium to help fortify your bones and help them to heal. See your health maintenance packet for dosages and recommended levels. DVT/VTE prophylaxis: You will be given compression stockings from the hospital. Wear these daily for the first two weeks after surgery. You may take them off at night. You may be prescribed a medication to help thin your blood. Take this as directed. If you are not prescribed this medication, early and frequent ambulation has been shown to be the best prophylaxis to deep vein thrombosis and sequelae related to this event. Procedures: L4-L5 reduction with decompression and fusion Patient Condition at Discharge: Stable Plan - Discharge Summary Discharge Rx Participant: Yes New Discharge Prescriptions: New cefaDROXiL [Duricef] 500 mg PO Q12HR 5 Days #10 cap Cyclobenzaprine [Flexeril] 10 mg PO TID PRN #40 tab PRN Reason: Spasms Gabapentin 300 mg PO TID 30 Days #90 cap HYDROcodone/APAP 10-325MG [Hockessin 10-325] 1 - 2 tab PO Q4HR PRN #56 tab PRN Reason: Pain Docusate [Colace] 100 mg PO BID PRN #30 PRN Reason: Constipation Sennosides/Docusate Sodium [Senna Plus 8.6-50 mg Softgel] 1 each PO BID PRN #30 PRN Reason: Constipation No Action Atorvastatin [Lipitor] 10 mg PO DAILY Enalapril [Vasotec] 20 mg PO DAILY Insulin Glargine [Lantus Vial] 20 unit SQ DAILY INSULIN ASPART (NovoLOG) [NovoLOG (formulary)] See Protocol SQ ACHS Tiotropium 18 Mcg/Puff [Spiriva] 1 puff INHALATION RT-DAILY Albuterol Sulfate [Ventolin HFA] 2 puff INHALATION RT-QID PRN PRN Reason: Shortness Of Breath carvediloL [Coreg] 6.25 mg PO BID hydrOXYzine pamoate [hydrOXYzine PAMOATE] 25 mg PO HS PRN PRN Reason: Insomnia Discharge Medication List Albuterol Sulfate [Ventolin HFA] 2 puff INHALATION RT-QID PRN 04/24/21 [History] Atorvastatin [Lipitor] 10 mg PO DAILY 04/24/21 [History] Enalapril [Vasotec] 20 mg PO DAILY 04/24/21 [History] INSULIN ASPART (NovoLOG) [NovoLOG (formulary)] See Protocol SQ ACHS 04/24/21 [History] Insulin Glargine [Lantus Vial] 20 unit SQ DAILY 04/24/21 [History] Tiotropium 18 Mcg/Puff [Spiriva] 1 puff INHALATION RT-DAILY 04/24/21 [History] carvediloL [Coreg] 6.25 mg PO BID 04/24/21 [History] hydrOXYzine pamoate [hydrOXYzine PAMOATE] 25 mg PO HS PRN 04/24/21 [History] Cyclobenzaprine [Flexeril] 10 mg PO TID PRN #40 tab 04/28/21 [Rx] Docusate [Colace] 100 mg PO BID PRN #30 04/28/21 [Rx] Gabapentin 300 mg PO TID 30 Days #90 cap 04/28/21 [Rx] HYDROcodone/APAP 10-325MG [Hockessin 10-325] 1 - 2 tab PO Q4HR PRN #56 tab 04/28/21 [Rx] Sennosides/Docusate Sodium [Senna Plus 8.6-50 mg Softgel] 1 each PO BID PRN #30 04/28/21 [Rx] cefaDROXiL [Duricef] 500 mg PO Q12HR 5 Days #10 cap 04/28/21 [Rx] Follow up Appointment(s)/Referral(s): [facility] [NON-STAFF] - 1 Week Savana Tejada MD [Primary Care Provider] - 1-2 days Teddy Pereyra DO [Doctor of Osteopathic Medicine] - 2 Weeks Yuri Martinez MD [STAFF PHYSICIAN] - 2 Weeks Brii Mabry [NON-STAFF] - 1 Week Patient Instructions/Handouts: Lumbar Spinal Fusion (DC), Lumbar Spinal Fusion (GEN) Activity/Diet/Wound Care/Special Instructions: Spine Discharge and Recovery Instructions Date of Surgery:04/25/21 Diagnosis: L4-5 Grade II spondylolisthesis, L4 bilateral pars fractures, incomplete cauda equina Procedure: L4-5 reduction, decompression and fusion Medications: See list All medication refills should be obtained through your primary care doctor or your clinic spine surgeon. Please discuss prescription refills at your follow up appointment. Do not call the hospital for medication refills. Dressing: Leave your dressing in place for a total of 3 days post operatively. Then you may remove your dressing and leave open to air. Keep the area clean and if not able to keep area clean, then cover with sterile gauze and tape. Showering: You may shower 3 days after your procedure allowing soap and water to run over incision. Do not scrub. Do not soak. Blot dry. Brace: Wear brace when up and about. Do not wear in shower, in bed or while resting in chair. Follow up: Please confirm a follow up appointment with your surgeon 2 weeks post operatively. Please make an appointment to follow up with your PCP in 1-2 weeks after surgery for evaluation 3 phase, 3-week plan POST OP WEEKS 1-3 1. Lifting/carrying/pushing/pulling limited to less than 5 pounds. 2. Do not sit for longer than 15 minutes at one time. Get up and walk around. Prolonged sitting is NOT advised. If you lay down, see if you can tolerate laying down on you front (belly side) 3. Walk for periods of 15 minutes = 1 mile but no longer; do it multiple times times each day. 4.Ice your low back after activity. POST OP WEEKS 3-6 1. Lifting limited to less than 20 pounds. 2. Do not sit for longer than 30 minutes at a time. Frequently change positions. Use a sit-to stand workstation or take frequent breaks from sitting if you have returned to work. 3. Walk for 30 minutes each day. If possible, do these three or more times a day POST OP WEEKS 6+ At your 6-week appointment we will give you a physical therapy referral to focus on a core stabilization and strengthening program. You should also work on leg & buttock strengthening, hamstring & quadriceps stretching, and continue a low impact aerobic activity program such as swimming, walking, or riding a stationary bicycle. During the initial 6 weeks after your surgery, you are at the highest risk of re-injuring your spine. You should generally avoid BLTs (bending, lifting and twisting combination motions) and follow the above guidelines to reduce the chance of reinjury. You can anticipate post op appointments in our office at approximately 3 weeks and 6 weeks after your surgery. INCISION CARE: If your incision is not draining you do NOT need to cover it with a dressing. Keep your incision clean, dry and intact. In most cases, we apply skin glue, vanessa or sutures to the incision at the time of surgery. This will be like a crust or have the appearance of a scab and will fall off in time on its own. The stitches or vanessa need to be removed at 3 weeks post op appointment. You may begin to shower 3 days after surgery (this allows the glue to jade well). However, please avoid scrubbing the incision site or peeling off any of the skin glue. This will ensure optimal healing of your incision. Also, during this time avoid soaking the incision area in water - this includes swimming pools, hot tubs or baths. No ointments, lotions or oils on the incision until your surgeon allows. Leave vanessa, sutures or glue in place. Neurological dysfunction that comes on suddenly can also be a sign of a stroke. Below some common symptoms of a stroke are listed: B - balance difficulty such as sudden onset walking or leaning to one side - NEW E - eye problem such as sudden double vision or trouble seeing on one side - NEW F - Facial weakness or numbness on one side - NEW A - Arm or leg weakness or numbness on one side - NEW S - Slurred speech or difficulty with word finding - NEW T - Time is BRAIN! Call 911 as soon as you recognize these symptoms Diet: Consume a regular diet rich in vegetables and lean protein such as chicken or fish. You should consume in a ratio of approximately 20% fats|40% carbohydrates|40%protein. Vegetables, sweet potatoes, brown rice or quinoa are examples of good carbohydrates. Chips, white bread, cookies and sweets/sugar are examples of bad carbohydrates. Limit your bad carbs, go wild with good carbs. "Life's Simple 7" Guidelines as per [place] [employer] These will help you reclaim your life after surgery and bagger and stock handler helper in your recovery, keeping in mind your restrictions. (1) Get Active. Physical activity can help people lose weight, control high blood pressure and cholesterol, feel emotionally better, and sleep better. (2) Control Cholesterol. Avoid a diet high in saturated fat, trans fat, & cholesterol. Limit whole milk & cream, ice cream, butter, egg yolks, processed meats (like sausage and hot dogs), and fatty meats. Choose healthy foods that are low in saturated fat, trans fat and cholesterol which include: Fruits and vegetables, fiber rich grain products (like whole grain pasta and brown rice), lean meat such as chicken, fish, nuts, seeds, and legumes. (3) Eat Better. Eat small portions. Shop at the grocery with a list and do not stray from it. Tips for a healthy diet include: Limit sodium intake to less than 1500mg daily, avoid prepackaged, processed, and fast foods, choose a diet rich in fruits, vegetables, and whole grain, high fiber foods, and limit saturated & cholesterol in your diet. (4) Manage Blood Pressure. If you have high blood pressure, you should have a cuff at home so that you can check your blood pressure regularly. Be sure you have a good cuff. An arm one is generally better than a wrist one. Bring the cuff to a doctor's appointment to validate that the measurements that your cuff are taking are accurate. Take your blood pressure twice daily when you are sitting down and relaxing. Record the numbers in a log and bring this log with you to your doctors' appointments. (5) Lose Weight if your BMI is above 25. A healthy BMI is between 19-25. To calculate Your BMI, you may use a Standard BMI Calculator on the NIH BMI website: <www.nhlbi.nih.gov/guidelines/obesity/BMI/bmicalc.htm>. Weigh oneself daily. If you are overweight, set a goal to lose weight. A pound a week loss if needed is a good target. (6) Reduce Blood Sugar. Limit foods and liquids with "added sugars." (Added sugars include sucrose, fructose, glucose, maltose, dextrose, high fructose corn syrup, corn syrup, concentrated fruit juice and honey). (7) Stop Smoking. If you smoke, quitting smoking is one of the best things that you can do for your health. Smoking increases your risk of heart attack, stroke, and peripheral vascular disease, which is a build-up of plaque in your arteries. Please discard all the cigarettes and lighters in your house. Have a plan for what you will do when you have the urge to smoke. Direct and second- hand smoke shortens your life as well as the lives of your family, friends and others around you. For your health and the health of those around you, please consider quitting! Proper Bending Body Mechanics: Maintain a wide stance with one foot slightly in front of the other. Keep your back straight. Bend utilizing the strength in your hips and knees. Do not bend at the waist. Maintain the lifted object at your waist-level close to your body. Avoid lifting weight that causes immediately pain or pain anywhere in the body afterwards. Smoking/Nicotine If there was ever one thing that you could do to increase your overall health, decrease your risk of cardiovascular problems by about 39% the second you make the choice, it is to STOP SMOKING. Your body's most instant gratification is the second you stop smoking. We have all heard the studies, read the articles but it is true, smoking is extremely bad for your overall health, and moreover it is detrimental to your bone health. Nicotine, IN ANY FORM, kills bone cells, prevents your body from healing fractures, and significantly prolongs healing after surgery. In spine surgery specifically, it increases your risk of not healing your bones to create a fusion and increases your risk of having a revision surgery due to this up to 60%. I know it is hard. I know it feels impossible. But there are ways. Take control of your life. We are here to help you through it. And when you are ready, ask us and we can direct you to help if you desire. Use the START Plan to Quit Smoking (please visit the Helpguide.org website listed below for more information): S = Set a quit date. Choose a date within the next 2 weeks, so you have enough time to prepare without losing your motivation to quit. If you mainly smoke at work, quit on the weekend, so you have a few days to adjust to the change. T = Tell family, friends, and co-workers that you plan to quit. Let your friends and family in on your plan to quit smoking and tell them you need their support and encouragement to stop. Look for a quit henrique who wants to stop smoking as well. You can help each other get through the rough times. A = Anticipate and plan for the challenges you'll face while quitting. Most people who begin smoking again do so within the first 3 months. You can help yourself make it through by preparing ahead for common challenges, such as nicotine withdrawal and cigarette cravings. R = Remove cigarettes and other tobacco products from your home, car, and work. Throw away all your cigarettes (no emergency pack!), lighters, ashtrays, and matches. Wash your clothes and freshen up anything that smells like smoke. Shampoo your car, clean your drapes and carpet, and steam your furniture. T = Talk to your doctor about getting help to quit. Your doctor can prescribe medication to help with withdrawal and suggest other alternatives. If you can't see a doctor, you can get many products over the coun ter at your local pharmacy or grocery store, including the nicotine patch, nicotine lozenges, and nicotine gum. Resources for Quitting Smoking: <https://www.[place].go v/documents/[facility]/Quit_Tobacco_Resources_for_patients_313480_7.pdf> Supplementation: Take recommended dosages of Vitamin D and Calcium to help fortify your bones and help them to heal. See your health maintenance packet for dosages and recommended levels. DVT/VTE prophylaxis: You will be given compression stockings from the hospital. Wear these daily for the first two weeks after surgery. You may take them off at night. You may be prescribed a medication to help thin your blood. Take this as directed. If you are not prescribed this medication, early and frequent ambulation has been shown to be the best prophylaxis to deep vein thrombosis and sequelae related to this event. Discharge Disposition: HOME WITH HOME HEALTH SERVICES
[2021-04-28 12:34] VITALS: BP 108/45; PULSE 80; RESP 17; TEMP 98.5
== END 2021-04-28 13:55 | disposition home health service (06) | DRG 454 ==
LOC: EC 10:27 → 5NMEDONC 11:58 → OBSVTOIN 04-26 00:47
PROVIDERS: ADMIT Orthopaedic Surgery; ATTEND Orthopaedic Surgery
PROC: 0SG10K1 Fusion of 2 or more Lumbar Vertebral Joints with Nonautologous Tissue Substitute, Posterior Approach, Posterior Column, Open Approach (ICD-10-PCS; principal; 2021-04-26)
PROC: 0SG10AJ Fusion of 2 or more Lumbar Vertebral Joints with Interbody Fusion Device, Posterior Approach, Anterior Column, Open Approach (ICD-10-PCS; 2021-04-26)
PROC: 01NB0ZZ Release Lumbar Nerve, Open Approach (ICD-10-PCS; 2021-04-26)
PROC: 0ST20ZZ Resection of Lumbar Vertebral Disc, Open Approach (ICD-10-PCS; 2021-04-26)
PROC: 0SS004Z Reposition Lumbar Vertebral Joint with Internal Fixation Device, Open Approach (ICD-10-PCS; 2021-04-26)
PROC: 0QB00ZZ Excision of Lumbar Vertebra, Open Approach (ICD-10-PCS; 2021-04-26)
DX: M43.16 Spondylolisthesis, lumbar region (principal); G83.4 Cauda equina syndrome; E11.51 Type 2 diabetes mellitus with diabetic peripheral angiopathy without gangrene; F17.200 Nicotine dependence, unspecified, uncomplicated; G89.29 Other chronic pain; I10 Essential (primary) hypertension; J44.9 Chronic obstructive pulmonary disease, unspecified; M48.061 Spinal stenosis, lumbar region without neurogenic claudication; M54.10 Radiculopathy, site unspecified; Z20.822 Contact with and (suspected) exposure to COVID-19; Z79.4 Long term (current) use of insulin; Z79.899 Other long term (current) drug therapy; Z80.0 Family history of malignant neoplasm of digestive organs; Z91.81 History of falling; Z83.3 Family history of diabetes mellitus; Z80.8 Family history of malignant neoplasm of other organs or systems; Z80.3 Family history of malignant neoplasm of breast; R29.6 Repeated falls; W18.30XA Fall on same level, unspecified, initial encounter; F41.9 Anxiety disorder, unspecified
CPT/HCPCS: 36415; 71046; 72100; 72131; 72148; 80048; 80053; 85025; 85027; 85610; 85730; 86850; 86900; 86901; 87635; 93005; 94640; 94760; 99284

== ENCOUNTER 2021-05-01 21:10 | Inpatient (IN) | payer MEDICARE, OTHER ==
--- NOTE | 2021-05-01 21:47 | ED ---
Recheck HPI - General Chief Complaint: Neuro Symptoms/Deficit Stated Complaint: leg numbness Time Seen by Provider: 05/01/21 21:43 Source: patient, EMS, RN notes reviewed, old records reviewed Mode of arrival: EMS Limitations: physical limitation - History of Present Illness Initial Comments: This is a 51-year-old male to the ER today for evaluation. Patient presents today for evaluation regards to postoperative back pain. Patient coming in for increased weakness over the past week. He denies any other significant complaints. Patient states his right leg weakness that is been an issue. No recent loss of bowel or bladder. No new trauma at home. No fevers MD Complaint: medication refill request, other (Postoperative pain) -: days(s) Returns Today for: persistent/worsening pain related to initial visit Symptoms Since Prior Visit: worsening pain Associated Symptoms: other (back pain) Treatments Prior to Arrival: Given Pain Meds on - Related Data Home Medications Medication Instructions Recorded Confirmed Albuterol Sulfate [Ventolin HFA] 2 puff INHALATION RT-QID PRN 04/24/21 05/01/21 Atorvastatin [Lipitor] 10 mg PO DAILY 04/24/21 05/01/21 Enalapril [Vasotec] 20 mg PO DAILY 04/24/21 05/01/21 INSULIN ASPART (NovoLOG) [NovoLOG See Protocol SQ ACHS 04/24/21 05/01/21 (formulary)] Insulin Glargine [Lantus Vial] 20 unit SQ DAILY 04/24/21 05/01/21 Tiotropium 18 Mcg/Puff [Spiriva] 1 puff INHALATION RT-DAILY 04/24/21 05/01/21 carvediloL [Coreg] 6.25 mg PO BID 04/24/21 05/01/21 hydrOXYzine pamoate [hydrOXYzine 25 mg PO HS PRN 04/24/21 05/01/21 PAMOATE] Sennosides/Docusate Sodium [Senna 1 tab PO BID PRN 05/01/21 05/01/21 Plus 8.6-50 mg Softgel] Previous Rx's Medication Instructions Recorded Cyclobenzaprine [Flexeril] 10 mg PO TID PRN #40 tab 04/28/21 Docusate [Colace] 100 mg PO BID PRN #30 04/28/21 Gabapentin 300 mg PO TID 30 Days #90 cap 04/28/21 HYDROcodone/APAP 10-325MG [[place] 1 - 2 tab PO Q4HR PRN #56 tab 04/28/21 10-325] cefaDROXiL [Duricef] 500 mg PO Q12HR 5 Days #10 cap 04/28/21 Allergies Allergy/AdvReac Type Severity Reaction Status Date / Time Sulfa (Sulfonamide Allergy Rash/Hives Verified 05/01/21 21:22 Antibiotics) hydrocodone [From [place]] AdvReac Nausea & Verified 05/01/21 21:22 Vomiting Review of Systems ROS Statement: Those systems with pertinent positive or pertinent negative responses have been documented in the HPI. ROS Other: All systems not noted in ROS Statement are negative. Past Medical History Past Medical History: Chest Pain / Angina, Diabetes Mellitus, Hypertension Additional Past Medical History / Comment(s): lower back pain History of Any Multi-Drug Resistant Organisms: None Reported Past Surgical History: Hernia Repair, Orthopedic Surgery Additional Past Surgical History / Comment(s): toe surg /ingrown toenails removed on bilaeral big toes, cervical fusion; pain procedures, spinal surgery Past Anesthesia/Blood Transfusion Reactions: No Reported Reaction Past Psychological History: No Psychological Hx Reported, Anxiety, Depression Smoking Status: Current every day smoker Past Alcohol Use History: Occasional, Rare Past Drug Use History: None Reported - Past Family History Father Family Medical History: Cancer Additional Family Medical History / Comment(s): colon cancer Mother Family Medical History: Cancer Additional Family Medical History / Comment(s): brain cancer Brother(s) Family Medical History: Diabetes Mellitus Additional Family Medical History / Comment(s): pt. states his brother from complications related to diabetes Sister(s) Family Medical History: Cancer Additional Family Medical History / Comment(s): pts. younger sister has breast cancer General Exam Limitations: physical limitation General appearance: alert, in no apparent distress, anxious Head exam: Present: atraumatic, normocephalic, normal inspection Eye exam: Present: normal appearance, PERRL, EOMI. Absent: scleral icterus, conjunctival injection, periorbital swelling ENT exam: Present: normal exam, mucous membranes moist Neck exam: Present: normal inspection. Absent: tenderness, meningismus, lymphadenopathy Respiratory exam: Present: normal lung sounds bilaterally. Absent: respiratory distress, wheezes, rales, rhonchi, stridor Cardiovascular Exam: Present: regular rate, normal rhythm, normal heart sounds. Absent: systolic murmur, diastolic murmur, rubs, gallop, clicks GI/Abdominal exam: Present: soft, normal bowel sounds. Absent: distended, tenderness, guarding, rebound, rigid Extremities exam: Present: normal inspection, full ROM, normal capillary refill. Absent: tenderness, pedal edema, joint swelling, calf tenderness Back exam: Present: normal inspection Neurological exam: Present: alert, oriented X3, CN II-XII intact Psychiatric exam: Present: normal affect, normal mood Skin exam: Present: warm, dry, intact, normal color. Absent: rash Course Vital Signs 05/01/21 21:14 Temperature 98.8 F Pulse Rate 102 H Respiratory 18 Rate Blood Pressure 151/96 O2 Sat by Pulse 98 Oximetry - Reevaluation(s) Reevaluation #1: 05/01/21 23:04 Medical record is reviewed Reevaluation #2: 05/01/21 23:05 Patient's pain is well-controlled Medical Decision Making - Medical Decision Making 51 male going to the ER for orthopedic surgical evaluation after recent spinal surgery. Patient is about a week out spinal surgery in here with increasing weakness debility at home. Patient just says he is in severe pain and having difficulty walking Disposition Clinical Impression: Chronic low back pain, Spondylolisthesis at L4-L5 level, Postoperative pain Disposition: ADMITTED IP TO THIS HOSP Condition: Serious Is patient prescribed a controlled substance at d/c from ED?: No Referrals: Savana Tejada MD [Primary Care Provider] - 1-2 days
[2021-05-01] MEDS ORDERED: NALOXONE 0.4 MG/ML 1 ML VIAL IV PRN (23:01)
[2021-05-01] MEDS ORDERED: MORPHINE SULFATE 4 MG/ML SYRINGE IV STA (23:01)
[2021-05-01] MEDS ORDERED: ONDANSETRON 4 MG/2 ML VIAL IVP PRN (23:01)
[2021-05-01] MEDS ORDERED: ACETAMINOPHEN TAB 325 MG TAB PO PRN (23:01)
[2021-05-01] MEDS: SODIUM CHLORIDE 0.9% 1,000 ML IV STA ×2 (23:12→23:16)
[2021-05-01] MEDS: SODIUM CHLORIDE 0.9% 1,000 ML IV SCH (23:16)
[2021-05-01 23:41] LABS: Basophils % (A) 0 %; Eosinophils # (A) 0.4 k/uL (0-0.7); Eosinophils % (A) 3 %; HCT 40.1 % (39.0-53.0); HGB 13.7 gm/dL (13.0-17.5); Lymphocytes # (A) 1.9 k/uL (1.0-4.8); Lymphocytes % (A) 17 %; MCH 30.9 pg (25.0-35.0); MCHC 34.2 g/dL (31.0-37.0); MCV 90.3 fL (80.0-100.0); Mean Platelet Volume 7.3; Monocytes # (A) 0.7 k/uL (0-1.0); Monocytes % (A) 6 %; Neutrophils # (A) 7.8 k/uL (1.3-7.7); Neutrophils % (A) 72 %; Platelet Count 301 k/uL (150-450); RBC 4.44 m/uL (4.30-5.90); RDW 11.9 % (11.5-15.5); WBC 10.9 k/uL (3.8-10.6)
[2021-05-01 23:50] LABS: INR 0.9 (<1.2); Partial Thromboplastin Time 23.4 sec (22.0-30.0); Prothrombin Time 9.4 sec (9.0-12.0)
[2021-05-01 23:57] LABS: ALT 52 U/L (4-49); AST 45 U/L (17-59); African American GFR (CKD) >90 (>60 ml/min/1.73 sqM); Albumin 2.8 g/dL (3.5-5.0); Alkaline Phosphatase 138 U/L (38-126); Anion Gap 3 mmol/L; Blood Urea Nitrogen 14 mg/dL (9-20); Calcium 8.3 mg/dL (8.4-10.2); Carbon Dioxide 30 mmol/L (22-30); Chloride 97 mmol/L (98-107); Glucose 122 mg/dL (74-99); Magnesium 1.9 mg/dL (1.6-2.3); Non-African American GFR(CKD) >90 (>60 ml/min/1.73 sqM); Phosphorus 3.4 mg/dL (2.5-4.5); Potassium 4.2 mmol/L (3.5-5.1); Sodium 130 mmol/L (137-145); Total Bilirubin 0.3 mg/dL (0.2-1.3); Total Protein 5.5 g/dL (6.3-8.2)
[2021-05-02 01:03] LABS: Appearance,Urine Clear (Clear); Bilirubin,Urine Negative (Negative); Blood,Urine Negative (Negative); Color,Urine Yellow; Glucose,Urine (UA) Trace (Negative); Ketones,Urine Negative (Negative); Leukocyte Esterase,Urine Negative (Negative); Nitrite,Urine Negative (Negative); Protein,Urine Negative (Negative); Specific Gravity,Urine 1.019 (1.001-1.035)
[2021-05-02] MEDS: MORPHINE SULFATE 4 MG/ML SYRINGE IVP PRN ×3 (05:30→17:33)
--- NOTE | 2021-05-02 07:34 | US ---
EXAMINATION TYPE: US venous doppler duplex LE RT DATE OF EXAM: 05/02/2021 7:22 AM COMPARISON: NONE CLINICAL HISTORY: 51-year-old male with right Right leg pain SIDE PERFORMED: Right TECHNIQUE: The lower extremity deep venous system is examined utilizing real time linear array sonog luci with graded compression, doppler sonography and color-flow sonography. VESSELS IMAGED: Common Femoral Vein - not imaged due to Guzmán catheter in place along right upper thigh Deep Femoral Vein Greater Saphenous Vein * Femoral Vein Popliteal Vein Small Saphenous Vein * Proximal Calf Veins (* superficial vessels) Right Leg: Visualized portions appear negative for DVT IMPRESSION: Unable to image the CFV due to the presence of the patient's Guzmán catheter. Otherwise, no evidence f or DVT within the right lower extremity imaged down to the upper calf.
[2021-05-02] MEDS ORDERED: DEXAMETHASONE SOD PHOSPHATE 10 MG/ML 1 ML VIAL IV STA (08:08)
[2021-05-02] MEDS ORDERED: DEXAMETHASONE SOD PHOSPHATE 4 MG/ML 1 ML VIAL IV PRN (08:08)
[2021-05-02] MEDS: GABAPENTIN 300 MG CAP PO SCH ×3 (08:52→20:22)
[2021-05-02] MEDS: SODIUM CHLORIDE 0.9% 1,000 ML IV SCH ×3 (08:52→23:32)
--- NOTE | 2021-05-02 09:24 | CT ---
EXAMINATION TYPE: CT lumbar spine wo con DATE OF EXAM: 05/02/2021 COMPARISON: CT lumbar spine 04/26/2021 HISTORY: severe low back pain, surgery one week ago, inability to ambulate CT DLP: 1062.6 mGycm Automated exposure control for dose reduction was used. An unenhanced CT of the lumbar spine was performed. Bone and soft tissue window settings are submitt ed as well as coronal and sagittal reconstructions. FINDINGS: The previously identified air density within the spinal canal has essentially resolved. Lack of contr ast could compromise sensitivity. Fluid attenuation is present within the subcutaneous fat posterior to the lower thoracic and lumbar spine with some associated lucency which may represent postoperative seroma. Patient's hardware causes artifact at L4-5 status post posterior fusion, minimal anterolisth esis grade 1 L4-5, retrolisthesis grade 1 L5-S1 shows a similar appearance, intervertebral spacing bl ocks at L4-5. There is some fluid attenuation coursing along the right psoas muscle, gas density at t his level has improved in the interval, minimal residual air attenuation present adjacent to the psoa s on the right. Retroaortic left renal vein noted incidentally. L1-L2: Normal disc space height. No disc herniation protrusion or central stenosis. No facet joint arthropathy. No evidence for foraminal encroachment. L2-L3: Normal disc space height. No disc herniation protrusion or central stenosis. No facet joint arthropathy. No evidence for foraminal encroachment. L3-L4: Normal disc space height. No disc herniation protrusion or central stenosis. No facet joint arthropathy. No evidence for foraminal encroachment. L4-L5: Small focus of gas densities present posterior to the spinal canal to the left midline, axial image #65, spondylolysis changes at L4 are again seen, circumferential extension endplate disc comple x encroaches somewhat on the neural foramen on the left greater than right L5-S1: Stable findings, loss of disc height L5-S1 with circumferential extension endplate disc comple x noted, there may be some contact with the proximal S1 nerve roots. IMPRESSION: Interval improvement in the previously identified air attenuation within the spinal canal, region of the thecal sac as described in prior report. Postop changes, some fluid attenuation along the level o f the psoas on the right may be inflammatory, correlate to exclude infection.
[2021-05-02] MEDS ORDERED: DOCUSATE 100 MG CAP PO PRN (12:54)
[2021-05-02] MEDS ORDERED: ALBUTEROL HFA INHALER INHALATION PRN (12:54)
--- NOTE | 2021-05-02 13:30 | P.GSCN ---
History of Present Illness Consult date: 05/02/21 Reason for Consult: Leg pain Requesting physician: Ravi Kelley History of present illness: A 51-year-old male with a past medical history including diabetes mellitus and hypertension who recently underwent back surgery on L4 -L5 04/24/2021. He presented to the emergency department yesterday with complaints of right leg pain. He states it started 1-2 days after his surgery and has progressively gotten worse. It is getting to the point where he cannot walk on it. He denies any numbness or tingling. Denies any pain in the left lower extremity. States the pain only began after his surgery. No history of peripheral vascular disease. The patient had a venous Doppler of the right lower extremity which was negative for DVT. The patient was also found to have distended bladder with urinary retention. He had a Guzmán catheter placed with large amount of urine output. Vascular surgery was consulted for her leg pain. Orthopedic surgeon also on consult. Patient denies any fevers or chills, shortness of breath, chest pain, abdominal pain, nausea or vomiting. Pain continues in the right lower extremity he states worse in the groin down to the knee. He is been afebrile. CT of the lumbar spine shows interval improvement in the previously identified air attenuation within the spinal canal, region of the thecal sac as described in prior report. Postop changes, some fluid attenuation along the level of the psoas on the right may be inflammatory, correlate to exclude infection. Thoracic lumbar spine MRI pending. Review of Systems 14 point review of systems was completed all pertinent positives and negatives as stated in the HPI Past Medical History Past Medical History: Chest Pain / Angina, Diabetes Mellitus, Hypertension Additional Past Medical History / Comment(s): lower back pain History of Any Multi-Drug Resistant Organisms: None Reported Past Surgical History: Hernia Repair, Orthopedic Surgery Additional Past Surgical History / Comment(s): toe surg /ingrown toenails removed on bilaeral big toes, cervical fusion; pain procedures, spinal surgery Past Anesthesia/Blood Transfusion Reactions: No Reported Reaction Past Psychological History: No Psychological Hx Reported, Anxiety, Depression Smoking Status: Current every day smoker Past Alcohol Use History: Occasional, Rare Past Drug Use History: None Reported - Past Family History Father Family Medical History: Cancer Additional Family Medical History / Comment(s): colon cancer Mother Family Medical History: Cancer Additional Family Medical History / Comment(s): brain cancer Brother(s) Family Medical History: Diabetes Mellitus Additional Family Medical History / Comment(s): pt. states his brother from complications related to diabetes Sister(s) Family Medical History: Cancer Additional Family Medical History / Comment(s): pts. younger sister has breast cancer Medications and Allergies Home Medications Medication Instructions Recorded Confirmed Type Albuterol Sulfate [Ventolin HFA] 2 puff INHALATION RT-QID PRN 04/24/21 05/01/21 History Atorvastatin [Lipitor] 10 mg PO DAILY 04/24/21 05/01/21 History Enalapril [Vasotec] 20 mg PO DAILY 04/24/21 05/01/21 History INSULIN ASPART (NovoLOG) [NovoLOG See Protocol SQ ACHS 04/24/21 05/01/21 History (formulary)] Insulin Glargine [Lantus Vial] 20 unit SQ DAILY 04/24/21 05/01/21 History Tiotropium 18 Mcg/Puff [Spiriva] 1 puff INHALATION RT-DAILY 04/24/21 05/01/21 History carvediloL [Coreg] 6.25 mg PO BID 04/24/21 05/01/21 History hydrOXYzine pamoate [hydrOXYzine 25 mg PO HS PRN 04/24/21 05/01/21 History PAMOATE] Cyclobenzaprine [Flexeril] 10 mg PO TID PRN #40 tab 04/28/21 05/01/21 Rx Docusate [Colace] 100 mg PO BID PRN #30 04/28/21 05/01/21 Rx Gabapentin 300 mg PO TID 30 Days #90 cap 04/28/21 05/01/21 Rx HYDROcodone/APAP 10-325MG [[place] 1 - 2 tab PO Q4HR PRN #56 tab 04/28/21 05/01/21 Rx 10-325] cefaDROXiL [Duricef] 500 mg PO Q12HR 5 Days #10 cap 04/28/21 05/01/21 Rx Sennosides/Docusate Sodium [[place] 1 tab PO BID PRN 05/01/21 05/01/21 History Plus 8.6-50 mg Softgel] Allergies Allergy/AdvReac Type Severity Reaction Status Date / Time Sulfa (Sulfonamide Allergy Rash/Hives Verified 05/01/21 21:22 Antibiotics) hydrocodone [From [place]] AdvReac Nausea & Verified 05/01/21 21:22 Vomiting Surgical - Exam Vital Signs Temp Pulse Resp BP Pulse Ox 98.8 F 102 H 18 151/96 98 05/01/21 21:14 05/01/21 21:14 05/01/21 21:14 05/01/21 21:14 05/01/21 21:14 General appearance: The patient is alert, oriented, in no acute distress. HET: Head is normocephalic and atraumatic. Neck: Supple without lymphadenopathy. Trachea midline. Heart: S1 S2. Regular rate and rhythm. Lungs: Clear to auscultation. Abdomen: Soft, nontender, nondistended. Extremities: Normal skin color and turgor. Warm to the touch. No cyanosis, rash, ulceration, clubbing, or edema. He has good capillary refill. He is able to move bilateral lower extremities. He has palpable bilateral femoral, posterior tibialis and dorsalis pedis pulses. Neurological: No focal deficits. Strength and sensation are grossly intact. Results - Labs 05/01/21 23:27 05/01/21 23:27 Abnormal Lab Results - Last 24 Hours (Table) 05/01/21 05/01/21 05/02/21 Range/Units 23:27 23:27 00:56 WBC 10.9 H (3.8-10.6) k/uL Neutrophils # 7.8 H (1.3-7.7) k/uL Sodium 130 L (137-145) mmol/L Chloride 97 L (98-107) mmol/L Glucose 122 H (74-99) mg/dL Calcium 8.3 L (8.4-10.2) mg/dL ALT 52 H (4-49) U/L Alkaline Phosphatase 138 H (38-126) U/L Total Protein 5.5 L (6.3-8.2) g/dL Albumin 2.8 L (3.5-5.0) g/dL Urine Glucose (UA) Trace H (Negative) Diabetes panel 05/01/21 Range/Units 23:27 Sodium 130 L (137-145) mmol/L Potassium 4.2 (3.5-5.1) mmol/L Chloride 97 L (98-107) mmol/L Carbon Dioxide 30 (22-30) mmol/L BUN 14 (9-20) mg/dL Creatinine 0.71 (0.66-1.25) mg/dL Glucose 122 H (74-99) mg/dL Calcium 8.3 L (8.4-10.2) mg/dL AST 45 (17-59) U/L ALT 52 H (4-49) U/L Alkaline Phosphatase 138 H (38-126) U/L Total Protein 5.5 L (6.3-8.2) g/dL Albumin 2.8 L (3.5-5.0) g/dL Calcium panel 05/01/21 Range/Units 23:27 Calcium 8.3 L (8.4-10.2) mg/dL Phosphorus 3.4 (2.5-4.5) mg/dL Albumin 2.8 L (3.5-5.0) g/dL Pituitary panel 05/01/21 Range/Units 23:27 Sodium 130 L (137-145) mmol/L Potassium 4.2 (3.5-5.1) mmol/L Chloride 97 L (98-107) mmol/L Carbon Dioxide 30 (22-30) mmol/L BUN 14 (9-20) mg/dL Creatinine 0.71 (0.66-1.25) mg/dL Glucose 122 H (74-99) mg/dL Calcium 8.3 L (8.4-10.2) mg/dL Adrenal panel 05/01/21 Range/Units 23:27 Sodium 130 L (137-145) mmol/L Potassium 4.2 (3.5-5.1) mmol/L Chloride 97 L (98-107) mmol/L Carbon Dioxide 30 (22-30) mmol/L BUN 14 (9-20) mg/dL Creatinine 0.71 (0.66-1.25) mg/dL Glucose 122 H (74-99) mg/dL Calcium 8.3 L (8.4-10.2) mg/dL Total Bilirubin 0.3 (0.2-1.3) mg/dL AST 45 (17-59) U/L ALT 52 H (4-49) U/L Alkaline Phosphatase 138 H (38-126) U/L Total Protein 5.5 L (6.3-8.2) g/dL Albumin 2.8 L (3.5-5.0) g/dL Assessment and Plan Assessment: 1. Right leg pain 2. Status post recent L4-L5 back surgery on 04/24/2021 Plan: Patient has bilateral +2 palpable posterior tibialis and dorsalis pedis pulses. He is warm to the touch. There is no evidence of DVT in the right lower extremity. There is no indication for any vascular surgical intervention. Pain likely postop related. Agree with orthopedic consultation. Thank you for this consultation, we will sign off at this time. Thank you for this consultation, and allowing us take part in the plan of care of your patient during his hospital stay. The impression and plan of care has been dictated as directed. I performed a history and examination of this patient, discussed the same with the dictator. I agree with the dictator's note ,documented as a scribe. Any additional findings or plans will be noted.
--- NOTE | 2021-05-02 14:22 | MR ---
EXAMINATION TYPE: MR tspine/lspine wo con DATE OF EXAM: 05/02/2021 COMPARISON: CT same date HISTORY: Post op leg weakness TECHNIQUE: Multiplanar, multisequence imaging of the thoracic and lumbar spine is performed without I V contrast. FINDINGS: Thoracic vertebral bodies show preserved height and alignment, there is no evident signific ant foraminal encroachment or spinal stenosis. Thoracic vertebral bodies show preserved height and al ignment, bone marrow signal is maintained. Disc spaces are within normal limits. Some facet arthropat hy changes are present towards the lower lumbar spine. Mild multilevel disc bulges noted, T6-7 shows a small central posterior disc herniation, T8-9 shows a left posterior paracentral disc herniation ca using anterolateral mass effect on the thecal sac. T10-11 shows a left posterior paracentral disc bul ge causing anterolateral mass effect on the thecal sac. Thoracic cord signal is maintained. IMPRESSION: Mild multilevel degenerative disc disease. Lumbar spine MRI: There is some motion on the exam. Within the posterior subcutaneous fat there is li ylnne local seroma extending from approximately the L2 level through S1, measurement is 15 cm in cepha lad to caudal dimension by 3 cm x 14 mm in AP dimension. Fluid attenuation noted on CT does involve t he right psoas muscle posteriorly measuring approximately 2.1 x 2.6 cm on axial image #9 on the right Patient shows posterior fusion at L4-5. The transpedicular screws show susceptibility artifact. Ante rolisthesis grade 1 L4-5, retrolisthesis grade 1 L5-S1. Lumbar vertebral bodies show preserved height . The conus is at T12 and shows an unremarkable appearance. Posterior to the thecal sac at L4-5 there is a likely postoperative fluid collection suspected with T 2 bright, T1 intermediate to slightly hyperintense which is contiguous to fluid signal extending into the spinal canal, there is posterior mass effect on the thecal sac extending to the L2-3 level, sign ificant canal stenosis is present due to the mass effect on the thecal sac greatest at L4-5 extending to L5-S1 level. The fluid collection is present within the posterior musculature on sagittal image # 12 adjacent to the spinous processes extends, thought to be continuous with collection at the level o f the laminectomies L5-S1 shows posterior extension endplate disc complex, possible contact with the proximal S1 nerve ro ots. There is some fluid signal suspected posterior and lateral to the thecal sac to the right of mid line causing some local mass effect posteriorly. L4-5: Circumferential extension of endplate encroaches somewhat on the foramina. No evident disc zack iation. Susceptibility artifact is present due to the placement of the spacers. L3-4: Fluid signal causes some posterior mass effect on the thecal sac resulting in a hourglass confi guration of the thecal sac. L2-3: Fluid collection shows only minimal posterior mass effect on the thecal sac. IMPRESSION: Postoperative fluid collection is suspected with mass effect on the thecal sac as describ ed. Right psoas collection may be related to postoperative fluid collection, follow-up recommended, c orrelate to exclude infection.
[2021-05-02] MEDS: CYCLOBENZAPRINE 10 MG TAB PO PRN (14:38)
[2021-05-02] MEDS: IPRATROPIUM 0.5 MG/2.5 ML NEBU INHALATION SCH ×2 (16:31→20:24)
--- NOTE | 2021-05-02 16:57 | P.HPIM ---
History of Present Illness H&P Date: 05/02/21 Chief Complaint: Leg weakness and numbness 51-year-old male to the ER today for evaluation. Patient presents today for evaluation regards to postoperative back pain. Patient coming in for increased weakness over the past week. He denies any other significant complaints. Patient states his right leg weakness that is been an issue. No recent loss of bowel or bladder. No new trauma at home. No fevers; in the ED patient was found to have distended bladder with urinary retention; Guzmán catheter was placed resulting in large amount of urine output, 500 mL was obtained In the ED patient underwent CT of the lumbar spine which revealed interval improvement in previously identified yet attenuation within the spinal cord; postop changes are seen with some fluid attenuation along the level of sore as on right side which could be inflammatory; vascular surgery and orthopedic surgery is consulted and recommending MRI of the spine and arterial Doppler Review of Systems REVIEW OF SYSTEMS: CONSTITUTIONAL: No fever, no malaise, no fatigue. HEENT: No recent visual problems or hearing problems. Denied any sore throat. CARDIOVASCULAR: No chest pain, orthopnea, PND, no palpitations, no syncope. PULMONARY: No shortness of breath, no cough, no hemoptysis. GASTROINTESTINAL: No diarrhea, no nausea, no vomiting, no abdominal pain. NEUROLOGICAL: No headaches, no weakness, no numbness. HEMATOLOGICAL: Denies any bleeding or petechiae. GENITOURINARY: Denies any burning micturition, frequency, or urgency. MUSCULOSKELETAL/RHEUMATOLOGICAL: Denies any joint pain, swelling, or any muscle pain. ENDOCRINE: Denies any polyuria or polydipsia. The rest of the 14-point review of systems is negative. Past Medical History Past Medical History: Chest Pain / Angina, Diabetes Mellitus, Hypertension Additional Past Medical History / Comment(s): lower back pain History of Any Multi-Drug Resistant Organisms: None Reported Past Surgical History: Hernia Repair, Orthopedic Surgery Additional Past Surgical History / Comment(s): toe surg /ingrown toenails removed on bilaeral big toes, cervical fusion; pain procedures, spinal surgery Past Anesthesia/Blood Transfusion Reactions: No Reported Reaction Past Psychological History: No Psychological Hx Reported, Anxiety, Depression Smoking Status: Current every day smoker Past Alcohol Use History: Occasional, Rare Past Drug Use History: None Reported - Past Family History Father Family Medical History: Cancer Additional Family Medical History / Comment(s): colon cancer Mother Family Medical History: Cancer Additional Family Medical History / Comment(s): brain cancer Brother(s) Family Medical History: Diabetes Mellitus Additional Family Medical History / Comment(s): pt. states his brother from complications related to diabetes Sister(s) Family Medical History: Cancer Additional Family Medical History / Comment(s): pts. younger sister has breast cancer Medications and Allergies Home Medications Medication Instructions Recorded Confirmed Type Albuterol Sulfate [Ventolin HFA] 2 puff INHALATION RT-QID PRN 04/24/21 05/01/21 History Atorvastatin [Lipitor] 10 mg PO DAILY 04/24/21 05/01/21 History Enalapril [Vasotec] 20 mg PO DAILY 04/24/21 05/01/21 History INSULIN ASPART (NovoLOG) [NovoLOG See Protocol SQ ACHS 04/24/21 05/01/21 History (formulary)] Insulin Glargine [Lantus Vial] 20 unit SQ DAILY 04/24/21 05/01/21 History Tiotropium 18 Mcg/Puff [Spiriva] 1 puff INHALATION RT-DAILY 04/24/21 05/01/21 History carvediloL [Coreg] 6.25 mg PO BID 04/24/21 05/01/21 History hydrOXYzine pamoate [hydrOXYzine 25 mg PO HS PRN 04/24/21 05/01/21 History PAMOATE] Cyclobenzaprine [Flexeril] 10 mg PO TID PRN #40 tab 04/28/21 05/01/21 Rx Docusate [Colace] 100 mg PO BID PRN #30 04/28/21 05/01/21 Rx Gabapentin 300 mg PO TID 30 Days #90 cap 04/28/21 05/01/21 Rx HYDROcodone/APAP 10-325MG [[place] 1 - 2 tab PO Q4HR PRN #56 tab 04/28/21 05/01/21 Rx 10-325] cefaDROXiL [Duricef] 500 mg PO Q12HR 5 Days #10 cap 04/28/21 05/01/21 Rx Sennosides/Docusate Sodium [Senna 1 tab PO BID PRN 05/01/21 05/01/21 History Plus 8.6-50 mg Softgel] Allergies Allergy/AdvReac Type Severity Reaction Status Date / Time Sulfa (Sulfonamide Allergy Rash/Hives Verified 05/01/21 21:22 Antibiotics) hydrocodone [From [place]] AdvReac Nausea & Verified 05/01/21 21:22 Vomiting Physical Exam Vitals: Vital Signs Temp Pulse Pulse Resp BP BP Pulse Ox 05/02/21 08:00 99.1 F 70 16 128/72 99 05/01/21 23:10 94 18 146/71 97 05/01/21 21:14 98.8 F 102 H 18 151/96 98 Intake and Output 05/01/21 05/02/21 05/02/21 22:59 06:59 14:59 Output Total 2300 Balance -2300 Output: Urine 2300 Other: Weight 79.379 kg PHYSICAL EXAMINATION: GENERAL: The patient is alert and oriented x3, not in any acute distress. Well developed, well nourished. HEENT: Pupils are round and equally reacting to light. EOMI. No scleral icterus. No conjunctival pallor. Normocephalic, atraumatic. No pharyngeal erythema. No thyromegaly. CARDIOVASCULAR: S1 and S2 present. No murmurs, rubs, or gallops. PULMONARY: Chest is clear to auscultation, no wheezing or crackles. ABDOMEN: Soft, nontender, nondistended, normoactive bowel sounds. No palpable organomegaly. MUSCULOSKELETAL: No joint swelling or deformity. EXTREMITIES: No cyanosis, clubbing, or pedal edema. NEUROLOGICAL: Gross neurological examination did not reveal any focal deficits. SKIN: No rashes. Results CBC & Chem 7: 05/01/21 23:27 05/01/21 23:27 Labs: Abnormal Lab Results - Last 24 Hours (Table) 05/01/21 05/01/21 05/02/21 Range/Units 23:27 23:27 00:56 WBC 10.9 H (3.8-10.6) k/uL Neutrophils # 7.8 H (1.3-7.7) k/uL Sodium 130 L (137-145) mmol/L Chloride 97 L (98-107) mmol/L Glucose 122 H (74-99) mg/dL Calcium 8.3 L (8.4-10.2) mg/dL ALT 52 H (4-49) U/L Alkaline Phosphatase 138 H (38-126) U/L Total Protein 5.5 L (6.3-8.2) g/dL Albumin 2.8 L (3.5-5.0) g/dL Urine Glucose (UA) Trace H (Negative) Assessment and Plan Assessment: 1. Postoperative leg pain and numbness - Patient underwent recent back surgery at the level of L4-L5 on 04/24/2021; patient reports postsurgical improvement in symptoms followed by worsening - Patient was found to have urinary retention in ED and a Guzmán catheter has been placed - Orthopedic surgery is consulted and recommendations are pending 2. Right leg pain; suspicion of peripheral vascular disease; patient is recommended arterial Doppler study; no vascular surgical intervention is recommended 3. Hypertension; Vasotec 20 mg daily; Coreg 6.25 mg twice a day 4. Diabetes mellitus, controlled with insulin ; we will continue with Lantus 20 units subcu daily and continue to monitor Accu-Cheks every 6 hours as with insulin sliding scale 5. COPD/asthma; not in exacerbation; albuterol inhaler 4 times a day when necessary, Spiriva 18 MCG daily DVT prophylaxis; SCDs CODE STATUS; full code
[2021-05-02] MEDS: CEPHALEXIN 250 MG CAP PO SCH ×2 (17:07→20:22)
[2021-05-02] MEDS: carvediloL 6.25 MG TAB PO SCH (20:22)
--- NOTE | 2021-05-02 20:31 | P.CNOR ---
History of Present Illness - [facility] Consult date: 05/02/21 Consult reason: low back pain History of present illness: Today with complaints of low back pain increased right lower extremity pain and weakness as well as weakness proximally in his right lower extremity. His is with him and states that this started seemingly on Saturday night Saturday and seemed to progress and get worse to the point where he could not walk anymore so they brought him to the emergency department. He was seen in the emergency department he is complaining of pain in his right lower extremity that seems involving down across the front of the leg. He was bladder scanned in the emergency department and found to have urinary retention which is different than his previous incontinence that he has been having. He has difficulty with ambulation secondary to weakness in his right lower extremity and pain with motion of his right lower extremity. He denies any other bowel or bladder issues at this time he states no perineal numbness or tingling but he is having some groin numbness at this time. Denies any fevers chills shortness breath or chest pain. Denies any incisional problems. Review of Systems 14 points review of systems completed and as stated in HPI, all other systems reviewed are negative. Constitutional: Reports as per HPI Past Medical History Past Medical History: Chest Pain / Angina, Diabetes Mellitus, Hypertension Additional Past Medical History / Comment(s): lower back pain History of Any Multi-Drug Resistant Organisms: None Reported Past Surgical History: Hernia Repair, Orthopedic Surgery Additional Past Surgical History / Comment(s): toe surg /ingrown toenails removed on bilaeral big toes, cervical fusion; pain procedures, spinal surgery Past Anesthesia/Blood Transfusion Reactions: No Reported Reaction Past Psychological History: No Psychological Hx Reported, Anxiety, Depression Smoking Status: Current every day smoker Past Alcohol Use History: Occasional, Rare Past Drug Use History: None Reported - Past Family History Father Family Medical History: Cancer Additional Family Medical History / Comment(s): colon cancer Mother Family Medical History: Cancer Additional Family Medical History / Comment(s): brain cancer Brother(s) Family Medical History: Diabetes Mellitus Additional Family Medical History / Comment(s): pt. states his brother from complications related to diabetes Sister(s) Family Medical History: Cancer Additional Family Medical History / Comment(s): pts. younger sister has breast cancer Medications and Allergies Home Medications Medication Instructions Recorded Confirmed Type Albuterol Sulfate [Ventolin HFA] 2 puff INHALATION RT-QID PRN 04/24/21 05/01/21 History Atorvastatin [Lipitor] 10 mg PO DAILY 04/24/21 05/01/21 History Enalapril [Vasotec] 20 mg PO DAILY 04/24/21 05/01/21 History INSULIN ASPART (NovoLOG) [NovoLOG See Protocol SQ ACHS 04/24/21 05/01/21 History (formulary)] Insulin Glargine [Lantus Vial] 20 unit SQ DAILY 04/24/21 05/01/21 History Tiotropium 18 Mcg/Puff [Spiriva] 1 puff INHALATION RT-DAILY 04/24/21 05/01/21 History carvediloL [Coreg] 6.25 mg PO BID 04/24/21 05/01/21 History hydrOXYzine pamoate [hydrOXYzine 25 mg PO HS PRN 04/24/21 05/01/21 History PAMOATE] Cyclobenzaprine [Flexeril] 10 mg PO TID PRN #40 tab 04/28/21 05/01/21 Rx Docusate [Colace] 100 mg PO BID PRN #30 04/28/21 05/01/21 Rx Gabapentin 300 mg PO TID 30 Days #90 cap 04/28/21 05/01/21 Rx HYDROcodone/APAP 10-325MG [[place] 1 - 2 tab PO Q4HR PRN #56 tab 04/28/21 05/01/21 Rx 10-325] cefaDROXiL [Duricef] 500 mg PO Q12HR 5 Days #10 cap 04/28/21 05/01/21 Rx Sennosides/Docusate Sodium [Senna 1 tab PO BID PRN 05/01/21 05/01/21 History Plus 8.6-50 mg Softgel] Allergies Allergy/AdvReac Type Severity Reaction Status Date / Time Sulfa (Sulfonamide Allergy Rash/Hives Verified 05/01/21 21:22 Antibiotics) hydrocodone [From [place]] AdvReac Nausea & Verified 05/01/21 21:22 Vomiting Physical Examination Osteopathic Statement: *. No significant issues noted on an osteopathic structural exam other than those noted in the History and Physical/Consult. PHYSICAL EXAMINATION: Vitals: Stable at this time General: Awake, alert, appropriate for age, in no acute distress. HEENT: No unusual neck masses around region of lateral neck triangle, thyroid, supraclavicular groove. Extremities: Skin warm and dry without no acute lesions, coloration, temperature, skin intact, no tenderness or erythema. Integument: Hairy patches: Absent Dorsal skin dimples: Absent Cafe au lait spots: Absent Surgical incisions: Posterior midline incision is healing well no erythema or ecchymosis and no drainage Palpation: Please see Pain drawing on Intake sheet for further detail. (Tenderness = T, Nontender = NT, Swelling = S, Ecchymosis = E) Findings on Midline and paraspinal palpation and percussion: Cervical: NT Thoracic: NT Lumbar: Mild tenderness to palpation on the incision Sacral: NT Special findings: No fluctuance VASCULAR STATUS : Wrist Pulses: 2/4 bilateral radial and ulnar Pedal Pulses: 2/4 bilateral DP and PT Color: Normal Edema: None NEUROLOGIC EXAMINATION: Mental Status: Awake and alert, fully oriented, with normal attention, concentration and memory, and fluent, appropriate speech. Cranial Nerves: I: Olfactory not tested. II: Visual acuity normal, no visual field deficit noted with confrontation. III,IV: Normal pupillary reflexes & intact extraocular movements without nystagmus. V,: Intact symmetrical facial sensation. VII: Intact symmetrical facial motor movement VIII: Hearing intact. IX,X: Intact gag, swallow, & normal voice. XI: Sternocleidomastoid, trapezius function intact. XII: Tongue midline with normal movements. Special Tests: L'hermitte's Sign: Absent Spurling'Sign: Absent Bilateral Cubital percussion test: Absent Bilateral Natasha-Tinel sign - Carpal region: Absent Bilateral Straight Leg Raising: Absent Bilateral Motor Exam (0-5/5, N/T) STRENGTH UPPER EXTREMITY Shoulder Abd (Not part of FARIDEH Motor score): RIGHT 5 LEFT 5 Elbow Flexors: RIGHT 5 LEFT 5 Elbow Extensor: RIGHT 5 LEFT 5 Wrrist Dorsiflexors: RIGHT 5 LEFT 5 Finger Abductor: RIGHT 5 LEFT 5 Psychological Operations: RIGHT 5 LEFT 5 LOWER EXTREMITY Hip Flexor (Not part of FARIDEH Motor Score): RIGHT 3 LEFT 4+ Knee Flexor: RIGHT 3 LEFT 4+ Knee Extensor: RIGHT 3 LEFT 4+ Ankle Dorsiflexion: RIGHT 4+ LEFT 4+ Ankle Plantarflexion: RIGHT 4+ LEFT 4+ EHL: RIGHT 4+ LEFT 4+ FHL: RIGHT 4+ LEFT 4+ REFLEXES Biecp: RIGHT 2 LEFT 2 Tricep: RIGHT 2 LEFT 2 Brachioradialis: RIGHT 2 LEFT 2 Patellar: RIGHT 1 LEFT 2 Achilles: RIGHT 2 LEFT 2 Pathological Reflexes Rodriguez's: RIGHT Absent LEFT Absent Babinski: RIGHT Absent LEFT Absent Clonus: RIGHT None LEFT None SENSORY Joint Position: Intact bilaterally Vibration Intact bilaterally Pain and LT sense Intact C5-T1 and L2-S1 Dermatomal deficit L2 L3 L3 L4 L4 L5 on the right Gait and Functional Evaluation: Ambulatory aids: Walker Hand and finger dexterity intact bilaterally. Disdiadochokinesis examination negative bilaterally. Results CT of the lumbar spine is reviewed this demonstrates good placement of hardware with no comp case process noted. Good decompression in this area no fracture dislocation or hardware migration MRI of the thoracic and lumbar spine is reviewed this demonstrates fluid collection around the postsurgical area there is fluid that seems to track up around the L2 region epidural in nature. This is causing compressive forces on the thecal sac. This is likely issue for the patient. This is a postoperative fluid collection is difficult to determine if this is CSF or simply postoperative fluid. There is no contrast given during the scan. Thoracic spine appears normal with no compressive lesion or lesions. - Labs Labs: Abnormal Lab Results - Last 24 Hours (Table) 05/01/21 05/01/21 05/02/21 Range/Units 23:27 23:27 00:56 WBC 10.9 H (3.8-10.6) k/uL Neutrophils # 7.8 H (1.3-7.7) k/uL Sodium 130 L (137-145) mmol/L Chloride 97 L (98-107) mmol/L Glucose 122 H (74-99) mg/dL Calcium 8.3 L (8.4-10.2) mg/dL ALT 52 H (4-49) U/L Alkaline Phosphatase 138 H (38-126) U/L Total Protein 5.5 L (6.3-8.2) g/dL Albumin 2.8 L (3.5-5.0) g/dL Urine Glucose (UA) Trace H (Negative) H & H 05/01/21 Range/Units 23:27 Hgb 13.7 (13.0-17.5) gm/dL Hct 40.1 (39.0-53.0) % Coagulation 05/01/21 Range/Units 23:27 INR 0.9 (<1.2) Result Diagrams: 05/01/21 23:27 05/01/21 23:27 Assessment and Plan Assessment: 51-year-old male 1 week postop L4 5 decompression fusion and reduction of spondylolisthesis with incomplete cauda equina at the time with continued symptoms and increasing right lower extremity pain and weakness Postoperative fluid collection lumbar spine Plan: Spine Surgery Risk Review Lico Jaime is a 51-year-old male presenting for evaluation of low back pain and increasing right lower extremity weakness and pain. It was my pleasure to have seen and examined Lico Jaime . In our visit today we have had a chance to go over subjective complaints, ph ysical examination findings and treatments including the natural course history without intervention and various interventional options. The patients imaging demonstrates postoperative fluid collection L2 to L4 with compressive properties . On physical exam, Lico Jaime demonstrates increasing right lower extremity weakness and radiculopathy continued urinary issues and bowel issues lower extremity numbness and tingling. I have explained to the patient that as their condition progresses it will cause further neurological deficits and eventual paralysis. Based on the patients imaging, physical exam, and the rapid progression and disabling nature of their symptoms, at this time I recommend surgery in the form or a: Irrigation and debridement lumbar spine with fluid evacuation. I discussed the risk and benefits of this procedure at length with Lico Jaime . The patient and his agreed to considered pursuing the procedure abovementioned. I did discuss with them in the room today about possibly doing surgery tonight as his symptoms became some what acutely worse,however the patient states that he is doing better at this time and his pain is much better and he wants to do it tomorrow. We will monitor him through the night and plan on taking him to surgery tomorrow 05/03/2021 for a planned irrigation debridement. They were comfortable and agreeable to this plan. Currently, I am recommendin. Irrigation and debridement of lumbar spine with fluid evacuation 2. Follow up with PCP for surgical clearance 3. Review of surgical risks and benefits as well as an educational packet on the proposed surgical procedure. Risks: All surgical procedures come with inherent risks, including those related to positioning, anesthesia, intraoperative findings, and postoperative complications. It is important to understand that surgery does not come with any guarantee of a successful outcome as complications and adverse events are always possible. The patient was given a handout in office today discussing the surgical procedure and risks associated with the intervention, both of which were discussed with the patient. These risks include but are not limited to the following: * Experiencing same, different or even worse symptoms in back, neck, arms, or legs compared to before surgery. * Requiring further surgery or other forms of treatment presently or at some time in the future at same or other levels of the intended spine surgery. * On an extreme but fortunately relatively rare basis severe complication such as blindness, stroke, heart attack, temporary and/or permanent nerve injury, paralysis, coma, or may occur, sometimes without known explanation. * Surgical complications may include but are not limited to risk of infe ction, fluid accumulation in the surgical dissection site, including a seroma or hematoma, that requires additional surgery, wound drainage, bleeding, new numbness or weakness, vision changes/loss, spinal fluid leakage, non-healing and/or infected incision, headaches, difficulty or inability to swallow, hoarseness, hemopneumothorax, pneumothorax, impotence, retrograde ejaculation, vaginal dryness; injury to nerves, spinal cord, blood vessels, lymphatics or other vital organs (i.e., bowel injury, injury to the great vessels); heterotopic bone formation; complications related to the hardware such as screws, rods, cages including misplaced hardware, device failure, instrumentation at the wrong spine level, hardware fracture/breakage, or hardware loosening; vertebral failure of the spinal column above or below the newly placed hardware; retained surgical instrumentations or devices and the n eed for further surgery. * Medical risks of the planned spine surgery include but are not limited to generalized Infections to the whole body or local areas outside of the surgical site (sepsis), heart attack, bleeding, anaphylaxis, meningitis, seizure, epilepsy, hearing loss, burn seymour, laceration of the head or other areas of the body, bruising, hypersensitivity of the skin, bladder over distension; allergic reaction; shoulder injury related to positioning; fat, blood and air clots to other areas of the body like heart, lungs, brain; failure of internal organs such as lungs, kidneys, liver and excessive bleeding. If blood transfusions are necessary, note that transfusions may cau se intolerance reactions such as anaphylaxis or other complex reactions. * Despite best efforts, the results of spine surgery might not heal in terms of bone, soft tissues such as skin, fascia, ligaments, and joints. Additionally, in order to achieve best possible results, spine surgery may be carried out beyond the initially planned levels and involve decompression, fusion including insertion of hardware at levels other than the original intended area of surgical interest change some portions of the procedure in order to ensure the best possible outcomes. * With spine surgery and spinal fusion, there are different off label uses of instrumentation (devices, implants and hardware) as well as biological substances (bone morphogenic proteins, demineralized bone matrix) as well as using extra bone from allograft sources (i.e. cadaver bone) or autograft (iliac crest bone, ribs, or the spine itself). The patient has been given information about these practices and their inherent risks and benefits. * [facility] is an educational center that serves as a training facility for neurosurgical and orthopedic spine residents and fellows. Residents are physicians who are completing their surgical intensive training following medical school. They assist in the operating room with direct supervision of the attending surgeons. [place] are surgeons who have completed their training and eligible for board certification. They have opted for an elective year of more specialized training in their field. They assist in the operating room under the supervision of the attending surgeons. Physician assistants are medically trained surgical providers who function in the outpatient, inpatient, and operating room setting under the direct supervision of the attending surgeon. * [facility] has multiple operating rooms with single and overlapping rooms running daily. They currently function under the required guidelines as produced by the [facility] Finance Committee with regards to the overlapping rooms and will continue to comply with changes to this policy as they occur. The requirements include and are complied with as follows: (1) the critical portions of the overlapping rooms will not occur at the same time, (2) the attending physician will be physically present during the critical portions of the procedure and immediately available during the entire case, and (3) a back-up attending is designated should the primary attending not be immediately available. The patient has had a chance to review all the listed information, has been given print outs detailing this information, and has had all his/her questions answered to their satisfaction. It was my pleasure to have seen and examined Lico Jaime . In our visit today we have had a chance to go over my understanding of our patient's current condition, the natural course history without intervention and various interventional options. Questions were invited and answered, and the patient wishes to proceed as outlined above. I have seen and examined the patient for 25 minutes and we have spent more than 50% of the time in repeat and detailed couns eling about the patient's condition, its natural course history with out and as much as can be predicted with surgery and re-review of various surgical treatment options. In conclusion, Lico Jaime and his requested we proceed with the above suggested surgery and are willing to accept risks and limitations of the suggested surgery as nature of the disease process and our best attempts at treatment for the condition. Thank you again for allowing us to be part of your patient's care. Please don't hesitate to contact me if you have any further questions. Signed and authenticated by: Teddy [facility] [address] [facility] [place] [address] Time with Patient: Greater than 30
[2021-05-03] MEDS: SODIUM CHLORIDE 0.9% 1,000 ML IV SCH ×3 (05:33→19:32)
[2021-05-03] MEDS: IPRATROPIUM 0.5 MG/2.5 ML NEBU INHALATION SCH ×4 (07:54→20:08)
--- NOTE | 2021-05-03 08:04 | P.PN ---
Progress Note - Text Progress Note Date: 05/03/21 Patient seen and examined no acute events overnight he states his action feeling somewhat better today. Still with Guzmán catheter. Has been kept nothing by mouth consent confirmed. He is ready for surgical intervention today Spine Surgery Risk Review Lico Jaime is a 51-year-old male presenting for evaluation of low back pain and increasing right lower extremity weakness and pain. It was my pleasure to have seen and examined Lico Jaime . In our visit today we have had a chance to go over subjective complaints, physical examination findings and treatments including the natural course history without intervention and various interventional options. The patients imaging demonstrates postoperative fluid collection L2 to L4 with compressive properties. On physical exam, Lico Jaime demonstrates increasing right lower extremity weakness and radiculopathy continued urinary issues and bowel issues lower extremity numbness and tingling. I have explained to the patient that as their condition progresses it will cause further neurological deficits and eventual paralysis. Based on the patients imaging, physical exam, and the rapid progression and disabling nature of their symptoms, at this time I recommend surgery in the form or a: Irrigation and debridement lumbar spine with fluid evacuation. I discussed the risk and benefits of this procedure at length with Lico Jaime . The patient and his agreed to considered pursuing the procedure abovementioned. I did discuss with them in the room today about possibly doing surgery tonight as his symptoms became some what acutely worse,however the patient states that he is doing better at this time and his pain is much better and he wants to do it tomorrow. We will monitor him through the night and plan on taking him to surgery tomorrow 05/03/2021 for a planned irrigation debridement. They were comfortable and agreeable to this plan. Currently, I am recommendin. Irrigation and debridement of lumbar spine with fluid evacuation 2. Follow up with PCP for surgical clearance 3. Review of surgical risks and benefits as well as an educational packet on the proposed surgical procedure. Risks: All surgical procedures come with inherent risks, including those related to positioning, anesthesia, intraoperative findings, and postoperative complications. It is important to understand that surgery does not come with any guarantee of a successful outcome as complications and adverse events are always possible. The patient was given a handout in office today discussing the surgical procedure and risks associated with the intervention, both of which were discussed with the patient. These risks include but are not limited to the following: * Experiencing same, different or even worse symptoms in back, neck, arms, or legs compared to before surgery. * Requiring further surgery or other forms of treatment presently or at some time in the future at same or other levels of the intended spine surgery. * On an extreme but fortunately relatively rare basis severe complication such as blindness, stroke, heart attack, temporary and/or permanent nerve injury, paralysis, coma, or may occur, sometimes without known explanation. * Surgical complications may include but are not limited to risk of infection, fluid accumulation in the surgical dissection site, including a seroma or hematoma, that requires additional surgery, wound drainage, bleeding, new numbness or weakness, vision changes/loss, spinal fluid leakage, non-healing and/or infected incision, headaches, difficulty or inability to swallow, hoarseness, hemopneumothorax, pneumothorax, impotence, retrograde ejaculation, vaginal dryness; injury to nerves, spinal cord, blood vessels, lymphatics or other vital organs (i.e., bowel injury, injury to the great vessels); heterotopic bone formation; complications related to the hardware such as screws, rods, cages including misplaced hardware, device failure, instrumentation at the wrong spine level, hardware fracture/breakage, or hardware loosening; vertebral failure of the spinal column above or below the newly placed hardware; retained surgical instrumentations or devices and the need for further surgery. * Medical risks of the planned spine surgery include but are not limited to generalized Infections to the whole body or local areas outside of the surgical site (sepsis), heart attack, bleeding, anaphylaxis, meningitis, seizure, epilepsy, hearing loss, burn seymour, laceration of the head or other areas of the body, bruising, hypersensitivity of the skin, bladder over distension; allergic reaction; shoulder injury related to positioning; fat, blood and air clots to other areas of the body like heart, lungs, brain; failure of internal organs such as lungs, kidneys, liver and excessive bleeding. If blood transfusions are necessary, note that transfusions may cause intolerance reactions such as anaphylaxis or other complex reactions. * Despite best efforts, the results of spine surgery might not heal in terms of bone, soft tissues such as skin, fascia, ligaments, and joints. Additionally, in order to achieve best possible results, spine surgery may be carried out beyond the initially planned levels and involve decompression, fusion includin g insertion of hardware at levels other than the original intended area of surgical interest change some portions of the procedure in order to ensure the best possible outcomes. * With spine surgery and spinal fusion, there are different off label uses of instrumentation (devices, implants and hardware) as well as biological substances (bone morphogenic proteins, demineralized bone matrix) as well as using extra bone from allograft sources (i.e. cadaver bone) or autograft (iliac crest bone, ribs, or the spine itself). The patient has been given information about these practices and their inherent risks and benefits. * [facility] is an educational center that serves as a training facility for neurosurgical and orthopedic spine residents and fellows. Residents are physicians who are completing their surgical intensive training following medical school. They assist in the operating room with direct supervision of the attending surgeons. [place] are surgeons who have complet ed their training and eligible for board certification. They have opted for an elective year of more specialized training in their field. They assist in the operating room under the supervision of the attending surgeons. Physician assistants are medically trained surgical providers who function in the outpatient, inpatient, and operating room setting under the direct supervision of the attending surgeon. * [facility] has multiple operating rooms with single and overlapping rooms running daily. They currently function under the required guidelines as produced by the [facility] Finance Committee with regards to the overlapping rooms and will continue to comply with changes to this policy as they occur. The requirements include and are complied with as follows: (1) the critical por tions of the overlapping rooms will not occur at the same time, (2) the attending physician will be physically present during the critical portions of the procedure and immediately available during the entire case, and (3) a back-up attending is designated should the primary attending not be immediately available. The patient has had a chance to review all the listed information, has been given print outs detailing this information, and has had all his/her questions answered to their satisfaction. It was my pleasure to have seen and examined Lico Jaime . In our visit today we have had a chance to go over my understanding of our patient's current condition, the natural course history without intervention and various interventional options. Questions were invited and answered, and the patient wishes to proceed as outlined above. I have seen and examined the patient for 25 minutes and we have spent more than 50% of the time in repeat and detailed counseling about the patient's condition, its natural course history with out and as much as can be predicted with surgery and re-review of various surgical treatment options. In conclusion, Lico Jaime and his requested we proceed with the above suggested surgery and are willing to accept risks and limitations of the suggested surgery as nature of the disease process and our best attempts at treatment for the condition. Thank you again for allowing us to be part of your patient's care. Please don't hesitate to contact me if you have any further questions. Signed and authenticated by: Teddy Sanders [facility] [address] [facility], [address] [address]
[2021-05-03] MEDS: INSULIN DETEMIR (LEVEMIR) 100 UNIT/ML SYR SQ SCH (09:23)
[2021-05-03] MEDS: GABAPENTIN 300 MG CAP PO SCH ×3 (09:23→21:29)
[2021-05-03] MEDS: ATORVASTATIN 10 MG TAB PO SCH (09:23)
[2021-05-03] MEDS: lisinopriL 20 MG TAB PO SCH (09:23)
[2021-05-03] MEDS: carvediloL 6.25 MG TAB PO SCH ×2 (09:23→19:32)
[2021-05-03 09:45] LABS: African American GFR (CKD) >90 (>60 ml/min/1.73 sqM); Anion Gap 7 mmol/L; Blood Urea Nitrogen 18 mg/dL (9-20); Calcium 8.9 mg/dL (8.4-10.2); Carbon Dioxide 24 mmol/L (22-30); Chloride 103 mmol/L (98-107); Glucose 123 mg/dL (74-99); Non-African American GFR(CKD) >90 (>60 ml/min/1.73 sqM); Potassium 4.4 mmol/L (3.5-5.1); Sodium 134 mmol/L (137-145)
[2021-05-03] MEDS: MORPHINE SULFATE 4 MG/ML SYRINGE IVP PRN ×3 (09:57→23:55)
[2021-05-03 10:04] LABS: Basophils # (A) 0.02 X 10*3/uL (0.00-0.10); Basophils % (A) 0.2 %; Eosinophils # (A) 0.01 X 10*3/uL (0.04-0.35); Eosinophils % (A) 0.1 %; HCT 38.4 % (39.6-50.0); HGB 13.4 g/dL (13.0-17.0); Lymphocytes # (A) 1.37 X 10*3/uL (0.90-5.00); Lymphocytes % (A) 11.5 %; MCH 30.9 pg (27.0-32.0); MCHC 34.9 g/dL (32.0-37.0); MCV 88.7 fL (80.0-97.0); Mean Platelet Volume 9.4 fL (9.5-12.2); Monocytes % (A) 5.9 %; Neutrophils % (A) 81.5 %; Platelet Count 354 X 10*3/uL (140-440); RBC 4.33 X 10*6/uL (4.40-5.60); RDW 11.9 % (11.5-14.5)
--- NOTE | 2021-05-03 10:56 | P.PN ---
Subjective Progress Note Date: 05/03/21 Principal diagnosis: Postoperative L2 to L4 compression/right lower extremity weakness and radiculopathy 51-year-old male to the ER today for evaluation. Patient presents today for evaluation regards to postoperative back pain. Patient coming in for increased weakness over the past week. He denies any other significant complaints. Patient states his right leg weakness that is been an issue. No recent loss of bowel or bladder. No new trauma at home. No fevers; in the ED patient was found to have distended bladder with urinary retention; Guzmán catheter was placed resulting in large amount of urine output, 500 mL was obtained In the ED patient underwent CT of the lumbar spine which revealed interval improvement in previously identified yet attenuation within the spinal cord; postop changes are seen with some fluid attenuation along the level of sore as on right side which could be inflammatory; vascular surgery and orthopedic surgery is consulted and recommending MRI of the spine and arterial Doppler MRI of the spine completed reveals postoperative fluid collection L2 to L4 with compressive properties resulting in increasing right lower extremity weakness and radiculopathy with urinary retention; immediate irrigation and debridement of lumbar spine with fluid evacuation is recommended Patient is medically cleared to proceed with surgery Objective - Vital Signs Vital signs: Vital Signs Temp 98 F 05/03/21 06:54 Pulse 92 05/03/21 08:05 Resp 18 05/03/21 06:54 BP 139/80 05/03/21 06:54 Pulse Ox 97 05/03/21 06:54 Intake & Output 05/02/21 05/03/21 05/03/21 18:59 06:59 18:59 Output Total 3400 Balance -3400 Output: Urine 3400 Other: Voiding Method Indwelling Catheter Indwelling Catheter Indwelling Catheter # Voids 2 - Exam GENERAL: The patient is alert and oriented x3, not in any acute distress. Well developed, well nourished. HEENT: Pupils are round and equally reacting to light. EOMI. No scleral icterus. No conjunctival pallor. Normocephalic, atraumatic. No pharyngeal erythema. No thyromegaly. CARDIOVASCULAR: S1 and S2 present. No murmurs, rubs, or gallops. PULMONARY: Chest is clear to auscultation, no wheezing or crackles. ABDOMEN: Soft, nontender, nondistended, normoactive bowel sounds. No palpable organomegaly. MUSCULOSKELETAL: No joint swelling or deformity. EXTREMITIES: No cyanosis, clubbing, or pedal edema. NEUROLOGICAL: Gross neurological examination did not reveal any focal deficits. SKIN: No rashes. - Labs CBC & Chem 7: 05/03/21 05:33 05/03/21 09:12 Labs: Abnormal Lab Results - Last 24 Hours (Table) 05/03/21 05/03/21 Range/Units 05:33 09:12 WBC 11.90 H (4.50-10.00) X 10*3/uL RBC 4.33 L (4.40-5.60) X 10*6/uL Hct 38.4 L (39.6-50.0) % MPV 9.4 L (9.5-12.2) fL Immature Gran # 0.10 H (0.00-0.04) X 10*3/uL Neutrophils # 9.70 H (1.80-7.70) X 10*3/uL Eosinophils # 0.01 L (0.04-0.35) X 10*3/uL Sodium 134 L (137-145) mmol/L Glucose 123 H (74-99) mg/dL Assessment and Plan Assessment: 1. Postoperative leg pain and numbness - Patient underwent recent back surgery at the level of L4-L5 on 04/24/2021; patient reports postsurgical improvement in symptoms followed by worsening - Patient was found to have urinary retention in ED and a Guzmán catheter has been placed - Orthopedic surgery is consulted and recommendations are pending 2. Right leg pain; suspicion of peripheral vascular disease; patient is recommended arterial Doppler study; no vascular surgical intervention is recommended 3. Hypertension; Vasotec 20 mg daily; Coreg 6.25 mg twice a day 4. Diabetes mellitus, controlled with insulin ; we will continue with Lantus 20 units subcu daily and continue to monitor Accu-Cheks every 6 hours as with insulin sliding scale 5. COPD/asthma; not in exacerbation; albuterol inhaler 4 times a day when necessary, Spiriva 18 MCG daily DVT prophylaxis; SCDs CODE STATUS; full code
[2021-05-03 10:57] LABS: African American GFR (CKD) 119.9 (60.0-200.0); Anion Gap 11.9 mmol/L (4.00-12.00); BUN/Creat Ratio 22.5 Ratio (12.00-20.00); Calcium 8.9 mg/dL (8.7-10.3); Carbon Dioxide 22.1 mmol/L (21.6-31.8); Non-African American GFR(CKD) 103.4 (60.0-200.0); Potassium 4.7 mmol/L (3.5-5.5)
[2021-05-03 11:39] LABS: Glucose,Whole Blood 107 mg/dL (75-99)
[2021-05-03] MEDS ORDERED: IV FLUID CONTINUATION 500 ML IV ONE (11:42)
[2021-05-03] MEDS ORDERED: ONDANSETRON 4 MG/2 ML VIAL IVP ONE (12:00)
[2021-05-03] MEDS ORDERED: LACTATED RINGERS 1,000 ML IV ONE ×2 (13:10→15:43)
[2021-05-03] MEDS ORDERED: BUPIVACAINE (PF) 0.25% 30 ML VIAL SQ ONE (13:40)
[2021-05-03] MEDS ORDERED: LIDOCAINE 1% INJ 10MG/ML (20 ML MDV) ONE (13:40)
[2021-05-03] MEDS ORDERED: HYDROmorphone (PF) 1 MG/ML ONE (13:40)
[2021-05-03] MEDS ORDERED: .fentaNYL (PF) 50 MCG/ML 2 ML AMP ONE (13:40)
[2021-05-03] MEDS ORDERED: SUCCINYLCHOLINE CHLORIDE 100 MG/5 ML SYR IV ONE (13:40)
[2021-05-03] MEDS ORDERED: NEOSTIGMINE 1 MG/ML 10 ML VIAL ONE (13:40)
[2021-05-03] MEDS ORDERED: PHENYLEPHRINE-0.9% NACL SYG 1,000 MCG/10 ML SYRINGE ONE (13:40)
[2021-05-03] MEDS ORDERED: MIDAZOLAM 2 MG/2 ML VIAL ONE (13:40)
[2021-05-03] MEDS ORDERED: GLYCOPYRROLATE 0.2 MG/ML 2 ML VIAL ONE (13:40)
[2021-05-03] MEDS ORDERED: ROCURONIUM 10 MG/ML (5 ML VIAL) IV ONE (13:40)
[2021-05-03] MEDS ORDERED: PROPOFOL 10 MG/ML 20 ML VIAL IV ONE (13:40)
[2021-05-03] MEDS ORDERED: ceFAZolin 3,000 MG in SODIUM CHLORIDE 0.9% IRRIGATIO 3,000 ML IRRIGATION ONE ×4 (14:25)
[2021-05-03] MEDS ORDERED: VANCOMYCIN 1,000 MG VIAL MISCELLANE ONE (14:28)
[2021-05-03] MEDS ORDERED: HYDROmorphone 0.5 MG/0.5 ML SYRINGE IVP PRN (15:52)
[2021-05-03] MEDS ORDERED: SENNOSIDES-DOCUSATE SODIUM 1 EACH TAB PO PRN (15:52)
[2021-05-03] MEDS ORDERED: HYDROmorphone 0.5 MG/0.5 ML SYRINGE IVP ONE ×2 (16:09→16:14)
[2021-05-03 16:54] LABS: Glucose,Whole Blood 76 mg/dL (75-99)
[2021-05-04] MEDS: CYCLOBENZAPRINE 10 MG TAB PO PRN (01:51)
[2021-05-04] MEDS: SODIUM CHLORIDE 0.9% 1,000 ML IV SCH ×3 (05:17→20:06)
[2021-05-04] MEDS: MORPHINE SULFATE 4 MG/ML SYRINGE IVP PRN ×3 (06:06→22:03)
[2021-05-04] MEDS: HYDROcodone/APAP 7.5-325MG 1 EACH TAB PO PRN ×2 (06:30→15:42)
[2021-05-04] MEDS: IPRATROPIUM 0.5 MG/2.5 ML NEBU INHALATION SCH ×4 (07:50→19:23)
[2021-05-04 08:33] LABS: Glucose,Whole Blood 117 mg/dL (75-99)
[2021-05-04] MEDS: INSULIN DETEMIR (LEVEMIR) 100 UNIT/ML SYR SQ SCH (08:35)
[2021-05-04] MEDS: carvediloL 6.25 MG TAB PO SCH ×2 (08:35→20:11)
[2021-05-04] MEDS: ATORVASTATIN 10 MG TAB PO SCH (08:36)
[2021-05-04] MEDS: GABAPENTIN 300 MG CAP PO SCH ×3 (08:36→21:25)
[2021-05-04] MEDS: lisinopriL 20 MG TAB PO SCH (08:36)
--- NOTE | 2021-05-04 09:25 | P.OP ---
Date of Procedure: 05/03/21 Preoperative Diagnosis: 1. Post operative seroma, compressive 2. LE weakness 3. LE radiculopathy Postoperative Diagnosis: 1. Post operative seroma, compressive 2. LE weakness 3. LE radiculopathy Procedure(s) Performed: 1. Incision and drainage Lumbar spine 15 x 7 x 8 2. Irrigation and debridment of skin, soft tissue and bone lumbar spine 15 x 7 x 8 -Knife used to remove necrotic soft tissue -Kerrison and rongure used to debride bone -curettes used to debride soft tissue 3. L3-4 bilateral laminectomy partial medial facetectomy and foraminotomy (23968) Implants: none Anesthesia: GETA Surgeon: Teddy Pereyra [employer] Cook #1: Art Moya (Was present for the entire case and necessary due to complextiy of the case) Estimated Blood Loss (ml): 50 IV fluids (ml): 400 Urine output (ml): 100 Pathology: none sent Condition: stable Disposition: PACU Indications for Procedure: 51 yo male underwent an L4-5 decompression, fusion and reduction of spondylolysis, fracture and listhesis 1 week prior. On saturday he started having more leg symptoms and his RLE became painful and weaker. He came to ED on Saturday with these complaints and underwent workup. He had MRI which showed a compressive fluid collection. He was admitted started on medications with plans to go to OR for seroma washout. We discussed risks and benefits of procedure at length and he and his were comfortable proceeding. Operative Findings: Seroma lumbar spine Description of Procedure: The patient was seen and examined in the preoperative area. All preoperative protocols were followed. Informed consent was obtained risks and benefits of the procedure were discussed at length. Risks including bleeding infection damage to the surrounding tissue and risk of reoperation were discussed with the patient. Risk of anesthesia up to and including was a discussed with the patient. These are outlined in the risk review. They were willing to accept these risks and all of the risks of surgery. The patient was given a weight- based dose of antibiotics in the form of 2 g Ancef IVPB. The patient was seen and evaluated by the anesthesia team who deemed them fit for surgery. The site was marked, the patient was willing to proceed with the procedure. The patient was transferred to the operative suite by the Department of anesth esia. They were then drifted off to sleep by the department anesthesia GETA was performed. The patient tolerated this well. Once confirmation of lines and ventilation the patient was transferred to a [prone Christ table very carefully]. All bony prominences including wrists, elbows, axilla, chest, hips, and thighs, and feet were padded very well. Special attention was paid to the genitalia and these were padded accordingly. SCDs were placed on bilateral lower extremities and were connected. Arms were well padded and placed [on arm boards up and out in the 90/90 position]. Once in position, again we confirmed good ventilation capabilities and that lines were running appropriately. The patient's lumbar spine was then exposed. 1010s were placed outlining the incision site. Standard alcohol was used to clean the incision site and allowed to dry. C-arm was used to biomark the patient and confirm level for incision which was marked with a skin marker. External sutures were removed. Operative briefing was performed with all teams and everyone in agreement to proceed. The patient was then prepped and draped in a normal sterile fashion. Timeout was then performed and all parties were in agreement with the procedure to be performed. Incision was made midline over the previously made incision about marked area. Dissection was taken down to the fascia the sutures were removed from the fascia and there was a seroma that was under pressure that was released. A large amount of serous fluid was removed from this area. We placed retractors and inspected the area. We cleared out any necrotic or devitalized tissue with Neeraj curet and knife. We then performed a laminectomy at L3-L4 to allow for visualization of this area and to remove any further fluid that it tracked cranially. There is really no fluid compressing this area the ligamentum was very thickened this area. Once this was performed using a high-speed bur and Kerrison rongeurs were debrided the bone and soft tissue the area with curettes as well as Neeraj. We performed a Valsalva maneuvers on 3 separate occasions throughout the case visualizing the dura throughout and there were no CSF leaks. We then copiously irrigated the wound with 6 L of antibiotic saline followed by 6 L of normal sterile saline. We repacked some autograft into the posterior lateral gutters. We placed Surgicel over the dura as well as Tisseel. Meticulous hemostasis was performed. We then placed a deep drain as well as vancomycin powder 2 g. We then closed the fascia with 0 PDS in [id number] fashion followed by 2-0 PDS in the subcu tissue. Freshen the skin edges and closed the skin with 2-0 nylon in a horizontal mattress fashion. The wound was then cleaned with alcohol and dressed with a Prenieo wound vac dressing. The drain was secured with a nylon stitch and dressed with tegaderm. The patient was transferred back to their hospital bed atraumatically. Drain continued to hold suction and were in good position. Patient was then awakened and extubated by the department of anesthesia having tolerated the procedure very well with no complications. He was transferred to the postoperative care unit in stable condition.
[2021-05-04 09:51] LABS: Basophils # (A) 0.03 X 10*3/uL (0.00-0.10); Basophils % (A) 0.3 %; Eosinophils # (A) 0.19 X 10*3/uL (0.04-0.35); Eosinophils % (A) 1.6 %; HGB 12.5 g/dL (13.0-17.0); Lymphocytes # (A) 2.53 X 10*3/uL (0.90-5.00); Lymphocytes % (A) 21.2 %; MCH 29.9 pg (27.0-32.0); MCHC 32.9 g/dL (32.0-37.0); MCV 90.9 fL (80.0-97.0); Mean Platelet Volume 9.6 fL (9.5-12.2); Monocytes # (A) 1.06 X 10*3/uL (0.20-1.00); Monocytes % (A) 8.9 %; Neutrophils # (A) 8.07 X 10*3/uL (1.80-7.70); Neutrophils % (A) 67.4 %; Platelet Count 381 X 10*3/uL (140-440); RBC 4.18 X 10*6/uL (4.40-5.60); RDW 12.5 % (11.5-14.5); WBC 11.95 X 10*3/uL (4.50-10.00)
[2021-05-04 11:41] LABS: Glucose,Whole Blood 185 mg/dL (75-99)
--- NOTE | 2021-05-04 11:53 | CDI ---
Documentation Clarification Form Date: 05/04/2021 11:19:45 AM From: Namrata Spears RN, CCDS Admit Date: 05/03/2021 03:45:00 PM Patient Name: Lico Jaime Visit Number: [id number] Discharge Date: ATTENTION: The Clinical Documentation Specialists (CDI) and [facility] Coding Staff appreciate your assistance in clarifying documentation. Please respond to the clarification below the line at the bottom and electronically sign. The CDI & [facility] Coding staff will review the response and follow-up if needed. Please note: Queries are made part of the Legal Health Record. If you have any questions, please contact the author of this message via ITS. Dr. Teddy Lundberg debridement is documented 05/03/21. The procedure performed has documented the instruments used but not the technique. Please provide additional clarification on technique used in the procedure History/Risk Factors: L4-5 decompression, fusion and reduction of spondylolysis, Hypertension, Diabetes Mellitus, low back pain Clinical Indicators: 51-year-old male who is 1 week postop (04/25/21. He complains of low back pain increased right lower extremity pain and weakness. 05/02 MRI Thoracic and lumbar spine demonstrates fluid collection around the postsurgical area. Treatment: Neurological assessment per post op orders Rocephin 2 GM IVPB Q 8HRS Decadron 4 MG IV Q6 HR PRN Dilaudid 0.5MG IVP Q3 PRN .9NS IV @ 130 MLS/HR 05/04/21: Incision and dainage lumbar spine 15 x 7 x 8. Incision and debridement of skin, soft tissue and bone lumbar spine 15 x 7 x 8, L3-4 bilateral laminectomy partial medial facetectomy and foraminotomy Please clarify the type of procedure performed: [ ] Excisional debridement (the removal of necrotic, devitalized tissue or slough by means of cutting away of tissue) [ ] Non-excisional debridement (the removal of necrotic, devitalized tissue or slough by means of flushing, brushing, or washing. (Irrigation) [ ] Other; please specify [ ] Unable to determine Five elements required for accurate and compliant documentation of a debridement: Technique used (e.g., excisional, excised, cutting, brushing, jet lavage etc.) Instrument(s) used (e.g., scalpel, curette, etc.) Nature of the tissue removed (e.g., necrotic, devitalized tissues, non-viable tissue, etc.) Appearance and size of the wound (e.g., down to fresh bleeding tissue, 7cm x 10cm, etc.) Depth of the debridement* (e.g., skin, subcutaneous tissue, fascia, muscle, bone, etc.) (Template Last Revised: September 2020) Both excisional and non excisional debridement were performed for the removal of necrotic tissues as well as flushing and irrigating out fluid collections. BRIE
--- NOTE | 2021-05-04 11:58 | P.PN ---
Subjective Progress Note Date: 05/04/21 pt s/e. No issues overnight. No new sx. states legs feel better, pain is improved and he is wanting to get up and try his wheel chair and/or walking. Brace coming from home. Objective - Vital Signs Vital signs: Vital Signs Temp 99.7 F H 05/04/21 07:43 Pulse 80 05/04/21 08:00 Resp 18 05/04/21 07:43 BP 96/58 05/04/21 07:43 Pulse Ox 97 05/04/21 07:43 Intake & Output 05/03/21 05/04/21 05/04/21 18:59 06:59 18:59 Intake Total 1552 180 Output Total 1700 130 Balance -148 -130 180 Intake: IV 1552 Oral 180 Output: Drainage 0 130 Back 0 0 Lower Back 130 Urine 1650 Estimated Blood Loss 50 Other: Voiding Method Indwelling Catheter Indwelling Catheter Indwelling Catheter - Exam PHYSICAL EXAMINATION: Vitals: Stable at this time General: Awake, alert, appropriate for age, in no acute distress. HEENT: No unusual neck masses around region of lateral neck triangle, thyroid, supraclavicular groove. Extremities: Skin warm and dry without no acute lesions, coloration, temperature, skin intact, no tenderness or erythema. Integument: Hairy patches: Absent Dorsal skin dimples: Absent Cafe au lait spots: Absent Surgical incisions: Posterior midline incision is healing well no erythema or ecchymosis and no drainage Drain with moderate output serosanguinous Palpation: Please see Pain drawing on Intake sheet for further detail. (Tenderness = T, Nontender = NT, Swelling = S, Ecchymosis = E) Findings on Midline and paraspinal palpation and percussion: Cervical: NT Thoracic: NT Lumbar: Mild tenderness to palpation on the incision Sacral: NT Special findings: No fluctuance VASCULAR STATUS : Wrist Pulses: 2/4 bilateral radial and ulnar Pedal Pulses: 2/4 bilateral DP and PT Color: Normal Edema: None NEUROLOGIC EXAMINATION: Mental Status: Awake and alert, fully oriented, with normal attention, concentration and memory, and fluent, appropriate speech. Cranial Nerves: I: Olfactory not tested. II: Visual acuity normal, no visual field deficit noted with confrontation. III,IV: Normal pupillary reflexes & intact extraocular movements without nystagmus. V,: Intact symmetrical facial sensation. VII: Intact symmetrical facial motor movement VIII: Hearing intact. IX,X: Intact gag, swallow, & normal voice. XI: Sternocleidomastoid, trapezius function intact. XII: Tongue midline with normal movements. Special Tests: L'hermitte's Sign: Absent Spurling'Sign: Absent Bilateral Cubital percussion test: Absent Bilateral Natasha-Tinel sign - Carpal region: Absent Bilateral Straight Leg Raising: Absent Bilateral Motor Exam (0-5/5, N/T) STRENGTH UPPER EXTREMITY Shoulder Abd (Not part of FARIDEH Motor score): RIGHT 5 LEFT 5 Elbow Flexors: RIGHT 5 LEFT 5 Elbow Extensor: RIGHT 5 LEFT 5 Wrrist Dorsiflexors: RIGHT 5 LEFT 5 Finger Abductor: RIGHT 5 LEFT 5 Talent Consultant: RIGHT 5 LEFT 5 LOWER EXTREMITY Hip Flexor (Not part of FARIDEH Motor Score): RIGHT 4+ LEFT 4+ Knee Flexor: RIGHT 4+ LEFT 4+ Knee Extensor: RIGHT 4+ LEFT 4+ Ankle Dorsiflexion: RIGHT 4+ LEFT 4+ Ankle Plantarflexion: RIGHT 4+ LEFT 4+ EHL: RIGHT 4+ LEFT 4+ FHL: RIGHT 4+ LEFT 4+ REFLEXES Biecp: RIGHT 2 LEFT 2 Tricep: RIGHT 2 LEFT 2 Brachioradialis: RIGHT 2 LEFT 2 Patellar: RIGHT 1 LEFT 2 Achilles: RIGHT 2 LEFT 2 Pathological Reflexes Rodriguez's: RIGHT Absent LEFT Absent Babinski: RIGHT Absent LEFT Absent Clonus: RIGHT None LEFT None SENSORY Joint Position: Intact bilaterally Vibration Intact bilaterally Pain and LT sense Intact C5-T1 and L2-S1 Dermatomal deficit L5-S1 Gait and Functional Evaluation: Ambulatory aids: Walker Hand and finger dexterity intact bilaterally. Disdiadochokinesis examination negative bilaterally. - Labs CBC & Chem 7: 05/04/21 05:44 05/03/21 09:12 Labs: Abnormal Lab Results - Last 24 Hours (Table) 05/03/21 05/03/21 05/03/21 Range/Units 05:33 05:33 11:38 WBC 11.90 H (4.50-10.00) X 10*3/uL RBC 4.33 L (4.40-5.60) X 10*6/uL Hgb (13.0-17.0) g/dL Hct 38.4 L (39.6-50.0) % MPV 9.4 L (9.5-12.2) fL Immature Gran # 0.10 H (0.00-0.04) X 10*3/uL Neutrophils # 9.70 H (1.80-7.70) X 10*3/uL Monocytes # (0.20-1.00) X 10*3/uL Eosinophils # 0.01 L (0.04-0.35) X 10*3/uL BUN/Creatinine Ratio 22.50 H (12.00-20.00) Ratio Glucose 134 H (70-110) mg/dL POC Glucose (mg/dL) 107 H (75-99) mg/dL 05/04/21 05/04/21 Range/Units 05:44 08:32 WBC 11.95 H (4.50-10.00) X 10*3/uL RBC 4.18 L (4.40-5.60) X 10*6/uL Hgb 12.5 L (13.0-17.0) g/dL Hct 38.0 L (39.6-50.0) % MPV (9.5-12.2) fL Immature Gran # 0.07 H (0.00-0.04) X 10*3/uL Neutrophils # 8.07 H (1.80-7.70) X 10*3/uL Monocytes # 1.06 H (0.20-1.00) X 10*3/uL Eosinophils # (0.04-0.35) X 10*3/uL BUN/Creatinine Ratio (12.00-20.00) Ratio Glucose (70-110) mg/dL POC Glucose (mg/dL) 117 H (75-99) mg/dL Assessment and Plan Assessment: 51-year-old male POD1 lumbar incision and drainage with irrigation and debridement of compressive seroma Postoperative fluid collection lumbar spine Bowel and bladder difficulties LE weakness Plan: -Appreciate learning and development consultant and team management. -Activity: Ambulate QID, OOB all meals, up and about, limit lifting bending twi sting to less than 5 lbs. Use walker or cane if needed for stability. -Daily PT/OT, increase ambulation strength and balance. -Brace when up and about, not needed in bed or chair -Pain control: Adequate at this time -Meds: reviewed -GI ppx: senna, Miralax -Urology consult for bladder evaluation and recommendations regarding Guzmán -DVT PPX: OK to restart Heparin tonight -Hygiene: Shower today. Maintain dressing clean and dry. Meticulous cleaning after BMs away from incision site -Drains: Maintain for now. Record output -Encourage IS 10x/hr -Dispo: Pending
[2021-05-04 17:34] LABS: Glucose,Whole Blood 155 mg/dL (75-99)
--- NOTE | 2021-05-04 19:26 | P.GSCN ---
History of Present Illness Consult date: 05/04/21 History of present illness: 51 yo male with a long history of severe lower back issues, recently post surgery on his lumbar spine that I have been asked to see for urine retention. The patient is interviewed with his present. Historically he has had difficulty voiding for a few months. Prior to his surgery he states that he didnt have sensation of fullness, he had to strain to void. He stated that his stream was very slow. He had back surgery about a week ago. He apparently was in retention at that time. He had a post op seroma that had to be surgically drained. He still has the catheter in. WHen the catheter was placed approximately 500ml were drained. He didnt have any sensation of fullness. He doesnt feel the catheter in place at present. He has never seen a urologist. He has been constipated since surgery Review of Systems - Genitourinary Reports as per HPI - Musculoskeletal Reports as per HPI Past Medical History Past Medical History: Chest Pain / Angina, Diabetes Mellitus, Hypertension Additional Past Medical History / Comment(s): lower back pain History of Any Multi-Drug Resistant Organisms: None Reported Past Surgical History: Hernia Repair, Orthopedic Surgery Additional Past Surgical History / Comment(s): toe surg /ingrown toenails removed on bilaeral big toes, cervical fusion; pain procedures, spinal surgery Past Anesthesia/Blood Transfusion Reactions: No Reported Reaction Past Psychological History: No Psychological Hx Reported, Anxiety, Depression Smoking Status: Current every day smoker Past Alcohol Use History: Occasional, Rare Past Drug Use History: None Reported - Past Family History Father Family Medical History: Cancer Additional Family Medical History / Comment(s): colon cancer Mother Family Medical History: Cancer Additional Family Medical History / Comment(s): brain cancer Brother(s) Family Medical History: Diabetes Mellitus Additional Family Medical History / Comment(s): pt. states his brother from complications related to diabetes Sister(s) Family Medical History: Cancer Additional Family Medical History / Comment(s): pts. younger sister has breast cancer Medications and Allergies Home Medications Medication Instructions Recorded Confirmed Type Albuterol Sulfate [Ventolin HFA] 2 puff INHALATION RT-QID PRN 04/24/21 05/01/21 History Atorvastatin [Lipitor] 10 mg PO DAILY 04/24/21 05/01/21 History Enalapril [Vasotec] 20 mg PO DAILY 04/24/21 05/01/21 History INSULIN ASPART (NovoLOG) [NovoLOG See Protocol SQ ACHS 04/24/21 05/01/21 History (formulary)] Insulin Glargine [Lantus Vial] 20 unit SQ DAILY 04/24/21 05/01/21 History Tiotropium 18 Mcg/Puff [Spiriva] 1 puff INHALATION RT-DAILY 04/24/21 05/01/21 History carvediloL [Coreg] 6.25 mg PO BID 04/24/21 05/01/21 History hydrOXYzine pamoate [hydrOXYzine 25 mg PO HS PRN 04/24/21 05/01/21 History PAMOATE] Cyclobenzaprine [Flexeril] 10 mg PO TID PRN #40 tab 04/28/21 05/01/21 Rx Docusate [Colace] 100 mg PO BID PRN #30 04/28/21 05/01/21 Rx Gabapentin 300 mg PO TID 30 Days #90 cap 04/28/21 05/01/21 Rx HYDROcodone/APAP 10-325MG [[place] 1 - 2 tab PO Q4HR PRN #56 tab 04/28/21 05/01/21 Rx 10-325] cefaDROXiL [Duricef] 500 mg PO Q12HR 5 Days #10 cap 04/28/21 05/01/21 Rx Sennosides/Docusate Sodium [Senna 1 tab PO BID PRN 05/01/21 05/01/21 History Plus 8.6-50 mg Softgel] Allergies Allergy/AdvReac Type Severity Reaction Status Date / Time Sulfa (Sulfonamide Allergy Rash/Hives Verified 05/03/21 11:31 Antibiotics) hydrocodone [From [place]] AdvReac Nausea & Verified 05/03/21 11:31 Vomiting Surgical - Exam Vital Signs Temp Pulse Resp BP Pulse Ox 98.8 F 102 H 18 151/96 98 05/01/21 21:14 05/01/21 21:14 05/01/21 21:14 05/01/21 21:14 05/01/21 21:14 - General well developed, well nourished, no distress - Eyes PERRL - ENT no hearing loss - Neck trachea midline - Respiratory normal expansion, normal respiratory effort - Cardiovascular Rhythm: regular - Abdomen Abdomen: soft, non tender - Genitourinary Indwelling catheter. Diminished penile, scrotal and perineal sensation. #0 gm bening prostate. Decreased rectal sensation but fairly good rectal tone. No constipation - Integumentary no growths - Neurologic diminished sensation in LE, but movement bilaterally - Musculoskeletal normal posture - Psychiatric oriented to time, oriented to person, oriented to place, speech is normal, mem ory intact Results - Labs 05/04/21 05:44 05/03/21 09:12 Abnormal Lab Results - Last 24 Hours (Table) 05/04/21 05/04/21 05/04/21 Range/Units 05:44 08:32 11:39 WBC 11.95 H (4.50-10.00) X 10*3/uL RBC 4.18 L (4.40-5.60) X 10*6/uL Hgb 12.5 L (13.0-17.0) g/dL Hct 38.0 L (39.6-50.0) % Immature Gran # 0.07 H (0.00-0.04) X 10*3/uL Neutrophils # 8.07 H (1.80-7.70) X 10*3/uL Monocytes # 1.06 H (0.20-1.00) X 10*3/uL POC Glucose (mg/dL) 117 H 185 H (75-99) mg/dL 05/04/21 Range/Units 17:33 WBC (4.50-10.00) X 10*3/uL RBC (4.40-5.60) X 10*6/uL Hgb (13.0-17.0) g/dL Hct (39.6-50.0) % Immature Gran # (0.00-0.04) X 10*3/uL Neutrophils # (1.80-7.70) X 10*3/uL Monocytes # (0.20-1.00) X 10*3/uL POC Glucose (mg/dL) 155 H (75-99) mg/dL Assessment and Plan Assessment: Impression. Urine retention primarily related to nerve impingemt. Hypotonic, diminished sensation bladder. Post op surgical repair of major back problems.DM Plan: C/w catheter. I will begin flomax 0.4 daily He should have a voiding trial in 48 hours I doubt he will void adequately for a while. It sounds as if has has had intermediate compression of the nerves feeding bladder sensation and function. 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 I will follow. Time with Patient: Greater than 30
[2021-05-04 20:19] LABS: Glucose,Whole Blood 146 mg/dL (75-99)
[2021-05-05] MEDS: HYDROcodone/APAP 7.5-325MG 1 EACH TAB PO PRN ×3 (04:26→16:48)
[2021-05-05] MEDS: SODIUM CHLORIDE 0.9% 1,000 ML IV SCH ×3 (04:47→21:15)
[2021-05-05 07:16] LABS: Glucose,Whole Blood 114 mg/dL (75-99)
[2021-05-05] MEDS: INSULIN DETEMIR (LEVEMIR) 100 UNIT/ML SYR SQ SCH (07:28)
[2021-05-05] MEDS: carvediloL 6.25 MG TAB PO SCH ×2 (07:28→21:14)
[2021-05-05] MEDS: lisinopriL 20 MG TAB PO SCH (07:29)
[2021-05-05] MEDS: ATORVASTATIN 10 MG TAB PO SCH (07:29)
[2021-05-05] MEDS: TAMSULOSIN 0.4 MG CAP.ER.24H PO SCH (07:29)
[2021-05-05] MEDS: GABAPENTIN 300 MG CAP PO SCH ×3 (07:40→21:14)
[2021-05-05] MEDS: IPRATROPIUM 0.5 MG/2.5 ML NEBU INHALATION SCH ×4 (08:59→19:04)
[2021-05-05 12:05] LABS: Glucose,Whole Blood 112 mg/dL (75-99)
--- NOTE | 2021-05-05 13:50 | P.PN ---
Subjective Progress Note Date: 05/05/21 Principal diagnosis: -Post operative seroma, compressive -LE weakness -LE radiculopathy Patient was seen at bedside this morning resting comfortably up in chair at bedside. was present at bedside throughout the encounter. Patient says he is doing better since surgery a couple days ago. Him and his are excited because he is able to lift his right leg. also mentions that his urine looks better in color than it was before surgery. Patient states she is still having some low back pain when he moves. Patient did say that he got up with physical therapy this morning. Patient denies chest pain, fever, shortness of breath, nausea, vomiting, change in vision. Objective - Vital Signs Vital signs: Vital Signs Temp 98.4 F 05/05/21 07:00 Pulse 66 05/05/21 10:58 Resp 12 05/05/21 07:00 BP 136/66 05/05/21 07:00 Pulse Ox 97 05/05/21 07:00 Intake & Output 05/04/21 05/05/21 05/05/21 18:59 06:59 18:59 Intake Total 180 354 Output Total 2600 3950 815 Balance -2420 -3950 -461 Intake: Oral 180 354 Output: Drainage 60 55 Back 0 Lower Back 60 55 Urine 2600 3890 760 Other: Voiding Method Indwelling Catheter Indwelling Catheter # Voids 1 - Exam Spine: Wound VAC was removed. Minimal output in wound VAC. Sutures are in good place and well aligned. No areas of purulence. There is minimal serous drainage from incision. ZEN drain will intact/in place. There is moderate amount of serous drainage Zen drain. Optifoam dressing was placed over incision and Tegaderms were placed over ZEN drain Inspection: Wound VAC was removed. Minimal output in wound VAC. Sutures are in good place and well aligned. No areas of purulence. There is minimal serous drainage from incision. ZEN drain will intact/in place. There is moderate amount of serous drainage Zen drain. Spine exam negative for any open wounds/ulcers Sensation: Sensation is equal, symmetric, intact bilaterally throughout lower extremities and upper extremities. Palpation: Some mild tenderness to patient on the lumbar spine midline over incision. Nontender to palpation throughout rest exam Range of motion: Patient is able to wiggle toes and plantar and dorsiflex both ankles. Full range of motion bilateral upper extremities. Limited range of motion in right leg due to weakness. Full range of motion left lower extremity Motor: Right lower extremity 3/5 in resisted hip flexion/extension, knee flexion/extension. Left lower extremity 4/5 in resisted hip flexion/extension, knee flexion/extension. Bilateral upper extremity is 5/5 resisted elbow flexion/extension shoulder abduction, internal/external rotation and forward elevation Neurovascular status: Dorsalis pedis pulses 2+, intact bilaterally. Cap refill under 3 seconds Special tests: Negative Kelly's bilaterally; negative Homans bilaterally - Labs CBC & Chem 7: 05/04/21 05:44 05/03/21 09:12 Labs: Abnormal Lab Results - Last 24 Hours (Table) 05/04/21 05/04/21 05/05/21 Range/Units 17:33 20:12 07:07 POC Glucose (mg/dL) 155 H 146 H 114 H (75-99) mg/dL 05/05/21 Range/Units 12:03 POC Glucose (mg/dL) 112 H (75-99) mg/dL Assessment and Plan Assessment: 51-year-old male POD2 lumbar incision and drainage with irrigation and debridement of compressive seroma Postoperative fluid collection lumbar spine Bowel and bladder difficulties Plan: 1. Post operative seroma, compressive; LE weakness; LE radiculopathy - surgery performed 05/03/2021 - lumbar incision and drainage with irrigation and debridement of compressive seroma. Patient stable at bedside this morning. Wound VAC was removed and replaced with optifoam dressing. 2. Appreciate medical management; appreciate urology management 3. Pain management - [place]; gabapentin; Flexeril; Tylenol; IV pain meds only needed 4. GI prophylaxis - senna/Colace 5. DVT prophylaxis - mechanical 6. Urinary retention - urology started patiennt on Flomax 7. Encourage incentive spirometer use 8. PT/OT - weightbearing as tolerated with walker 9. Discharge planning - pending Time with Patient: Less than 30
[2021-05-05 17:09] LABS: Glucose,Whole Blood 109 mg/dL (75-99)
[2021-05-05] MEDS: MORPHINE SULFATE 4 MG/ML SYRINGE IVP PRN (19:37)
[2021-05-05] MEDS: CYCLOBENZAPRINE 10 MG TAB PO PRN (19:37)
[2021-05-05 20:27] LABS: Glucose,Whole Blood 117 mg/dL (75-99)
[2021-05-06] MEDS: SODIUM CHLORIDE 0.9% 1,000 ML IV SCH ×3 (04:23→20:52)
[2021-05-06 07:09] LABS: Glucose,Whole Blood 111 mg/dL (75-99)
[2021-05-06] MEDS: GABAPENTIN 300 MG CAP PO SCH ×3 (07:38→20:52)
[2021-05-06] MEDS: HYDROcodone/APAP 7.5-325MG 1 EACH TAB PO PRN ×3 (07:38→23:07)
[2021-05-06] MEDS: carvediloL 6.25 MG TAB PO SCH ×2 (07:39→20:52)
[2021-05-06] MEDS: lisinopriL 20 MG TAB PO SCH (07:39)
[2021-05-06] MEDS: ATORVASTATIN 10 MG TAB PO SCH (07:39)
[2021-05-06] MEDS: INSULIN DETEMIR (LEVEMIR) 100 UNIT/ML SYR SQ SCH (07:39)
[2021-05-06] MEDS: TAMSULOSIN 0.4 MG CAP.ER.24H PO SCH (07:39)
[2021-05-06] MEDS: IPRATROPIUM 0.5 MG/2.5 ML NEBU INHALATION SCH ×4 (07:45→20:05)
--- NOTE | 2021-05-06 09:25 | P.PN ---
Subjective Progress Note Date: 05/06/21 The patient has long-standing back problems. He had surgery 2 weeks ago and then a subsequent post surgical drainage of a seroma. He has urine retention probably has been long-standing. 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 He does not have a lot of perineal and genital sensation. The patient once a catheter out. He has been on Flomax for 48 hours. We'll remove it and see how he voids. I explained to him he may have problems voiding both short and long-term. We've discussed indwelling catheter and CIC. I'll follow. Objective - Vital Signs Vital signs: Vital Signs Temp 98.5 F 05/06/21 02:43 Pulse 96 05/06/21 08:00 Resp 18 05/06/21 08:00 BP 116/75 05/06/21 02:43 Pulse Ox 97 05/06/21 02:43 Intake & Output 05/05/21 05/06/21 05/06/21 18:59 06:59 18:59 Intake Total 354 Output Total 2915 3460 Balance -2561 -3460 Intake: Oral 354 Output: Drainage 55 60 Lower Back 55 60 Urine 2860 3400 Other: Voiding Method Indwelling Catheter Indwelling Catheter Indwelling Catheter - Labs CBC & Chem 7: 05/04/21 05:44 05/03/21 09:12 Labs: Abnormal Lab Results - Last 24 Hours (Table) 05/05/21 05/05/21 05/05/21 Range/Units 12:03 17:05 20:25 POC Glucose (mg/dL) 112 H 109 H 117 H (75-99) mg/dL 05/06/21 Range/Units 06:57 POC Glucose (mg/dL) 111 H (75-99) mg/dL
--- NOTE | 2021-05-06 10:13 | P.PN ---
Subjective Progress Note Date: 05/06/21 Principal diagnosis: -Post operative seroma, compressive -LE weakness -LE radiculopathy Patient was seen at bedside this morning resting comfortably up in chair at bedside eating breakfast. was present at bedside throughout the encounter. Patient says he is doing better since surgery a couple days ago. Drainage output overnight was 65 therefore drain will be pulled today. Patient did say that he got up with physical therapy yesterday and plans again to today. Patient denies chest pain, fever, shortness of breath, nausea, vomiting, change in vision. Assessment: 51-year-old male POD3 lumbar incision and drainage with irrigation and debridement of compressive seroma Postoperative fluid collection lumbar spine Bowel and bladder difficulties Plan: 1. Post operative seroma, compressive; LE weakness; LE radiculopathy - surgery performed 05/03/2021 - lumbar incision and drainage with irrigation and debridement of compressive seroma. Patient stable at bedside this morning. Remaining ZEN drain removed at beside today and new dressing over drain site placed. 2. Appreciate medical management; appreciate urology management 3. Pain management - [place]; gabapentin; Flexeril; Tylenol; IV pain meds only needed 4. GI prophylaxis - senna/Colace 5. DVT prophylaxis - mechanical 6. Urinary retention - urology started patiennt on Flomax 7. Encourage incentive spirometer use 8. PT/OT - weightbearing as tolerated with walker 9. Pt okay to shower per Dr. Pereyra. 10. Discharge planning - pending Objective - Vital Signs Vital signs: Vital Signs Temp 98.5 F 05/06/21 02:43 Pulse 96 05/06/21 08:00 Resp 18 05/06/21 08:00 BP 116/75 05/06/21 02:43 Pulse Ox 97 05/06/21 02:43 Intake & Output 05/05/21 05/06/21 05/06/21 18:59 06:59 18:59 Intake Total 354 Output Total 2915 3460 Balance -2561 -3460 Intake: Oral 354 Output: Drainage 55 60 Lower Back 55 60 Urine 2860 3400 Other: Voiding Method Indwelling Catheter Indwelling Catheter Indwelling Catheter - Exam Spine: Remaining ZEN drain removed due to output overnight <80ml. Drain suture removed and drain pulled with no complications. New 4x4 tegaderm placed over drain site. May replace as necessary if becomes saturated. New optifoam dressing ordered due to distal lift off, but current optifoam is clean dry and intact. Sensation: Sensation is equal, symmetric, intact bilaterally throughout lower extremities and upper extremities. Palpation: Some mild tenderness to patient on the lumbar spine midline over incision. Nontender to palpation throughout rest exam Range of motion: Patient is able to wiggle toes and plantar and dorsiflex both ankles. Full range of motion bilateral upper extremities. Limited range of mo tion in right leg due to weakness. Full range of motion left lower extremity Motor: Right lower extremity 3/5 in resisted hip flexion/extension, knee flexion/extension. Left lower extremity 4/5 in resisted hip flexion/extension, knee flexion/extension. Bilateral upper extremity is 5/5 resisted elbow flexion/extension shoulder abduction, internal/external rotation and forward elevation Neurovascular status: Dorsalis pedis pulses 2+, intact bilaterally. Cap refill under 3 seconds - Labs CBC & Chem 7: 05/04/21 05:44 05/03/21 09:12 Labs: Abnormal Lab Results - Last 24 Hours (Table) 05/05/21 05/05/21 05/05/21 Range/Units 12:03 17:05 20:25 POC Glucose (mg/dL) 112 H 109 H 117 H (75-99) mg/dL 05/06/21 Range/Units 06:57 POC Glucose (mg/dL) 111 H (75-99) mg/dL
[2021-05-06 12:03] LABS: Glucose,Whole Blood 127 mg/dL (75-99)
[2021-05-06 17:27] LABS: Glucose,Whole Blood 110 mg/dL (75-99)
[2021-05-06 20:59] LABS: Glucose,Whole Blood 114 mg/dL (75-99)
[2021-05-07] MEDS: SODIUM CHLORIDE 0.9% 1,000 ML IV SCH ×3 (03:57→19:18)
[2021-05-07] MEDS: HYDROcodone/APAP 7.5-325MG 1 EACH TAB PO PRN ×2 (05:50→14:56)
[2021-05-07 07:25] LABS: Glucose,Whole Blood 155 mg/dL (75-99)
[2021-05-07] MEDS: IPRATROPIUM 0.5 MG/2.5 ML NEBU INHALATION SCH ×4 (07:51→19:17)
--- NOTE | 2021-05-07 08:14 | P.PN ---
Subjective Progress Note Date: 05/07/21 the patient was in urine retention post hip surgery. He had voiding issues prior to his back surgery. THe cath was pulled and he seem to be voiding adequately. The patient should be seen in the office as an outpatient. Objective - Vital Signs Vital signs: Vital Signs Temp 99.0 F 05/07/21 02:00 Pulse 84 05/07/21 02:00 Resp 18 05/07/21 02:00 BP 93/59 05/07/21 02:00 Pulse Ox 100 05/07/21 02:00 Intake & Output 05/06/21 05/07/21 05/07/21 18:59 06:59 18:59 Output Total 254 Balance -254 Output: Post Void Residual 254 Other: Voiding Method Toilet Toilet Urinal Urinal # Voids 2 - Labs CBC & Chem 7: 05/04/21 05:44 05/03/21 09:12 Labs: Abnormal Lab Results - Last 24 Hours (Table) 05/06/21 05/06/21 05/06/21 Range/Units 06:57 12:01 17:26 POC Glucose (mg/dL) 111 H 127 H 110 H (75-99) mg/dL 05/06/21 Range/Units 20:58 POC Glucose (mg/dL) 114 H (75-99) mg/dL
[2021-05-07] MEDS: carvediloL 6.25 MG TAB PO SCH ×2 (09:02→19:20)
[2021-05-07] MEDS: TAMSULOSIN 0.4 MG CAP.ER.24H PO SCH (09:02)
[2021-05-07] MEDS: ATORVASTATIN 10 MG TAB PO SCH (09:02)
[2021-05-07] MEDS: lisinopriL 20 MG TAB PO SCH (09:02)
[2021-05-07] MEDS: INSULIN DETEMIR (LEVEMIR) 100 UNIT/ML SYR SQ SCH (09:02)
--- NOTE | 2021-05-07 11:10 | P.PN ---
Subjective Progress Note Date: 05/07/21 Patient seen and examined today. Is doing very well he would like to go home. His pain is better controlled he can move his right leg better he denies a numbness or tingling denies any perineal symptoms he has had the Guzmán removed and has been to the bathroom he has had low PVRs. He denies any other symptoms of fevers chills shortness of breath or chest pain at this time. Again he would like to go home Objective - Vital Signs Vital signs: Vital Signs Temp 98.4 F 05/07/21 08:00 Pulse 88 05/07/21 08:00 Resp 17 05/07/21 08:00 BP 143/84 05/07/21 08:00 Pulse Ox 96 05/07/21 08:00 Intake & Output 05/06/21 05/07/21 05/07/21 18:59 06:59 18:59 Output Total 254 Balance -254 Output: Post Void Residual 254 Other: Voiding Method Toilet Toilet Toilet Urinal Urinal Urinal # Voids 2 - Exam Exam continues to improve his showing increased strength in his lower extremities and good motion. PHYSICAL EXAMINATION: Vitals: Stable at this time General: Awake, alert, appropriate for age, in no acute distress. HEENT: No unusual neck masses around region of lateral neck triangle, thyroid, supraclavicular groove. Extremities: Skin warm and dry without no acute lesions, coloration, temperature, skin intact, no tenderness or erythema. Integument: Hairy patches: Absent Dorsal skin dimples: Absent Cafe au lait spots: Absent Surgical incisions: Posterior midline incision is healing well no erythema or ecchymosis and no drainage Drain with moderate output serosanguinous Palpation: Please see Pain drawing on Intake sheet for further detail. (Tenderness = T, Nontender = NT, Swelling = S, Ecchymosis = E) Findings on Midline and paraspinal palpation and percussion: Cervical: NT Thoracic: NT Lumbar: Mild tenderness to palpation on the incision Sacral: NT Special findings: No fluctuance VASCULAR STATUS : Wrist Pulses: 2/4 bilateral radial and ulnar Pedal Pulses: 2/4 bilateral DP and PT Color: Normal Edema: None NEUROLOGIC EXAMINATION: Mental Status: Awake and alert, fully oriented, with normal attention, concentration and memory, and fluent, appropriate speech. Cranial Nerves: I: Olfactory not tested. II: Visual acuity normal, no visual field deficit noted with confrontation. III,IV: Normal pupillary reflexes & intact extraocular movements without n ystagmus. V,: Intact symmetrical facial sensation. VII: Intact symmetrical facial motor movement VIII: Hearing intact. IX,X: Intact gag, swallow, & normal voice. XI: Sternocleidomastoid, trapezius function intact. XII: Tongue midline with normal movements. Special Tests: L'hermitte's Sign: Absent Spurling'Sign: Absent Bilateral Cubital percussion test: Absent Bilateral Natasha-Tinel sign - Carpal region: Absent Bilateral Straight Leg Raising: Absent Bilateral Motor Exam (0-5/5, N/T) STRENGTH UPPER EXTREMITY Shoulder Abd (Not part of FARIDEH Motor score): RIGHT 5 LEFT 5 Elbow Flexors: RIGHT 5 LEFT 5 Elbow Extensor: RIGHT 5 LEFT 5 Wrrist Dorsiflexors: RIGHT 5 LEFT 5 Finger Abductor: RIGHT 5 LEFT 5 Consulting It Architect: RIGHT 5 LEFT 5 LOWER EXTREMITY Hip Flexor (Not part of FARIDEH Motor Score): RIGHT 4+ LEFT 4+ Knee Flexor: RIGHT 4+ LEFT 4+ Knee Extensor: RIGHT 4+ LEFT 4+ Ankle Dorsiflexion: RIGHT 4+ LEFT 4+ Ankle Plantarflexion: RIGHT 4+ LEFT 4+ EHL: RIGHT 4+ LEFT 4+ FHL: RIGHT 4+ LEFT 4+ REFLEXES Biecp: RIGHT 2 LEFT 2 Tricep: RIGHT 2 LEFT 2 Brachioradialis: RIGHT 2 LEFT 2 Patellar: RIGHT 1 LEFT 2 Achilles: RIGHT 2 LEFT 2 Pathological Reflexes Rodriguez's: RIGHT Absent LEFT Absent Babinski: RIGHT Absent LEFT Absent Clonus: RIGHT None LEFT None SENSORY Joint Position: Intact bilaterally Vibration Intact bilaterally Pain and LT sense Intact C5-T1 and L2-S1 Dermatomal deficit L5-S1 Gait and Functional Evaluation: Ambulatory aids: Walker Hand and finger dexterity intact bilaterally. Disdiadochokinesis examination negative bilaterally. - Labs CBC & Chem 7: 05/04/21 05:44 05/03/21 09:12 Labs: Abnormal Lab Results - Last 24 Hours (Table) 05/06/21 05/06/21 05/06/21 Range/Units 12:01 17:26 20:58 POC Glucose (mg/dL) 127 H 110 H 114 H (75-99) mg/dL 05/07/21 Range/Units 07:24 POC Glucose (mg/dL) 155 H (75-99) mg/dL Assessment and Plan Assessment: 51-year-old male POD 4 lumbar incision and drainage with irrigation and debridement of compressive seroma Postoperative fluid collection lumbar spine Bowel and bladder difficulties LE weakness Plan: -Appreciate corporate travel consultant and team management. -Activity: Ambulate QID, OOB all meals, up and about, limit lifting bending twisting to less than 5 lbs. Use walker or cane if needed for stability. -Daily PT/OT, increase ambulation strength and balance. -Brace when up and about, not needed in bed or chair -Pain control: Adequate at this time -Meds: reviewed -GI ppx: senna, Miralax -Urology consult for bladder evaluation and recommendations regarding Guzmán -DVT PPX: OK to restart Heparin tonight -Hygiene: Shower today. Maintain dressing clean and dry. Meticulous cleaning after BMs away from incision site -Drains: Maintain for now. Record output -Encourage IS 10x/hr -Dispo: Orthopedically stable for discharge home today
--- NOTE | 2021-05-07 11:16 | P.DS ---
Providers Date of admission: 05/03/21 15:45 Expected date of discharge: 05/07/21 Attending physician: Joshua Alvarado Consults: 05/01/21 23:03 Consult Physician Routine Consulting Provider: Teddy Pereyra Consult Reason/Comments: pain Do you want consulting provider notified?: Yes 05/04/21 15:13 Consult Physician Routine Consulting Provider: Yuri Martinez Consult Reason/Comments: urinary retention Do you want consulting provider notified?: Already Contacted Primary care physician: Savana Tejada Hospital Course: Spine Surgery Discharge Summary Note Admission Date: 05/01/2021 Discharge Date: 05/07/2021 Providers: Sree Principal Diagnosis: Postoperative fluid collection lumbar spine Procedures: Incision and drainage with irrigation and debridement lumbar spine Secondary Diagnoses: Incomplete cauda equina Discharge Medications: See list Allergies: See list Hospital Course: The patient was evaluated preoperatively and found to have the diagnosis of postoperative seroma number spine. They underwent appropriate preoperative care and were willing to undergo the intended procedure. They underwent a successful incision drainage with irrigation and debridement lumbar spine, were recovered appropriately and sent to the floor. While on the floor they worked with physical therapy, occupational therapy and nursing to enhance their recovery experience. Their pain was well controlled through their stay and they were started on appropriate medications, DVT ppx modalities, activity and dietary needs. Daily labs were monitored closely, and transfusions were only used when necessary. Medicine as well as other consulting services have made their input and have helped with our team approach and multidisciplinary care. PT milestones have been met and passed and they have made the recommendation of home with home health care for this patient and treating providers agree with this care path. The patient will be discharged home with appropriate medications, instructions and follow-up information and in stable condition. Patient Condition at Discharge: Stable Plan - Discharge Summary Discharge Rx Participant: Yes New Discharge Prescriptions: New cefaDROXiL [Duricef] 500 mg PO Q12HR #20 cap RX: Gabapentin 300 mg PO TID #90 cap Cyclobenzaprine [Flexeril] 10 mg PO TID #40 tab HYDROcodone/APAP 10-325MG [[place] 10-325] 1 tab PO Q4HR PRN 3 Days #18 tab PRN Reason: Pain No Action Atorvastatin [Lipitor] 10 mg PO DAILY Enalapril [Vasotec] 20 mg PO DAILY cefaDROXiL [Duricef] 500 mg PO Q12HR 5 Days #10 cap Cyclobenzaprine [Flexeril] 10 mg PO TID PRN #40 tab PRN Reason: Spasms RX: Gabapentin 300 mg PO TID 30 Days #90 cap HYDROcodone/APAP 10-325MG [[place] 10-325] 1 - 2 tab PO Q4HR PRN #56 tab PRN Reason: Pain Insulin Glargine [Lantus Vial] 20 unit SQ DAILY INSULIN ASPART (NovoLOG) [NovoLOG (formulary)] See Protocol SQ ACHS Tiotropium 18 Mcg/Puff [Spiriva] 1 puff INHALATION RT-DAILY Albuterol Sulfate [Ventolin HFA] 2 puff INHALATION RT-QID PRN PRN Reason: Shortness Of Breath carvediloL [Coreg] 6.25 mg PO BID RX: hydrOXYzine pamoate [hydrOXYzine PAMOATE] 25 mg PO HS PRN PRN Reason: Insomnia RX: Docusate [Colace] 100 mg PO BID PRN #30 PRN Reason: Constipation Sennosides/Docusate Sodium [Senna Plus 8.6-50 mg Softgel] 1 tab PO BID PRN PRN Reason: Constipation Discharge Medication List Albuterol Sulfate [Ventolin HFA] 2 puff INHALATION RT-QID PRN 04/24/21 [History] Atorvastatin [Lipitor] 10 mg PO DAILY 04/24/21 [History] Enalapril [Vasotec] 20 mg PO DAILY 04/24/21 [History] INSULIN ASPART (NovoLOG) [NovoLOG (formulary)] See Protocol SQ ACHS 04/24/21 [History] Insulin Glargine [Lantus Vial] 20 unit SQ DAILY 04/24/21 [History] RX: hydrOXYzine pamoate [hydrOXYzine PAMOATE] 25 mg PO HS PRN 04/24/21 [History] Tiotropium 18 Mcg/Puff [Spiriva] 1 puff INHALATION RT-DAILY 04/24/21 [History] carvediloL [Coreg] 6.25 mg PO BID 04/24/21 [History] Cyclobenzaprine [Flexeril] 10 mg PO TID PRN #40 tab 04/28/21 [Rx] HYDROcodone/APAP 10-325MG [[place] 10-325] 1 - 2 tab PO Q4HR PRN #56 tab 04/28/21 [Rx] RX: Docusate [Colace] 100 mg PO BID PRN #30 04/28/21 [Rx] RX: Gabapentin 300 mg PO TID 30 Days #90 cap 04/28/21 [Rx] cefaDROXiL [Duricef] 500 mg PO Q12HR 5 Days #10 cap 04/28/21 [Rx] Sennosides/Docusate Sodium [Senna Plus 8.6-50 mg Softgel] 1 tab PO BID PRN 05/01/21 [History] Cyclobenzaprine [Flexeril] 10 mg PO TID #40 tab 05/07/21 [Rx] HYDROcodone/APAP 10-325MG [[place] 10-325] 1 tab PO Q4HR PRN 3 Days #18 tab 05/07/21 [Rx] RX: Gabapentin 300 mg PO TID #90 cap 05/07/21 [Rx] cefaDROXiL [Duricef] 500 mg PO Q12HR #20 cap 05/07/21 [Rx] Follow up Appointment(s)/Referral(s): Savana Tejada MD [Primary Care Provider] - 1-2 days Yuri Martinez MD [STAFF PHYSICIAN] - 2 Weeks Teddy Pereyra DO [Doctor of Osteopathic Medicine] - 10 Days Discharge Disposition: HOME WITH HOME HEALTH SERVICES
[2021-05-07 12:04] LABS: Glucose,Whole Blood 115 mg/dL (75-99)
--- NOTE | 2021-05-07 15:36 | P.PN ---
Subjective Progress Note Date: 05/04/21 Principal diagnosis: Postoperative L2 to L4 compression/right lower extremity weakness and radiculopathy 51-year-old male to the ER today for evaluation. Patient presents today for evaluation regards to postoperative back pain. Patient coming in for increased weakness over the past week. He denies any other significant complaints. Patient states his right leg weakness that is been an issue. No recent loss of bowel or bladder. No new trauma at home. No fevers; in the ED patient was found to have distended bladder with urinary retention; Guzmán catheter was placed resulting in large amount of urine output, 500 mL was obtained In the ED patient underwent CT of the lumbar spine which revealed interval improvement in previously identified yet attenuation within the spinal cord; postop changes are seen with some fluid attenuation along the level of sore as on right side which could be inflammatory; vascular surgery and orthopedic surgery is consulted and recommending MRI of the spine and arterial Doppler MRI of the spine completed reveals postoperative fluid collection L2 to L4 with compressive properties resulting in increasing right lower extremity weakness and radiculopathy with urinary retention; immediate irrigation and debridement of lumbar spine with fluid evacuation is recommended Patient is medically cleared to proceed with surgery 05/04/2022 Patient is seen and evaluated post surgery; status post incision and debridement of skin, soft tissue and bone lumbar spine Vital signs are reviewed and remained stable; lab review shows WBC 11.9, hemoglobin 12.5 and platelet count of 381, chemical profile revealed sodium 134, potassium 4.4, BUN/creatinine of 18/0.74 Patient has been evaluated by urology and urinary retention deemed related to nerve impingement; urology recommending to start patient on Flomax 0.4 mg daily with plans to have a void trial in 48 hours Objective - Vital Signs Vital signs: Vital Signs Temp 99.7 F H 05/04/21 07:43 Pulse 84 05/04/21 11:54 Resp 18 05/04/21 07:43 BP 96/58 05/04/21 07:43 Pulse Ox 97 05/04/21 07:43 Intake & Output 05/03/21 05/04/21 05/04/21 18:59 06:59 18:59 Intake Total 1552 180 Output Total 7039 169 4874 Balance -148 -130 -820 Intake: IV 1552 Oral 180 Output: Drainage 0 130 Back 0 0 Lower Back 130 Urine 1650 1000 Estimated Blood Loss 50 Other: Voiding Method Indwelling Catheter Indwelling Catheter Indwelling Catheter - Exam GENERAL: The patient is alert and oriented x3, not in any acute distress. Well developed, well nourished. HEENT: Pupils are round and equally reacting to light. EOMI. No scleral icterus. No conjunctival pallor. Normocephalic, atraumatic. No pharyngeal erythema. No thyromegaly. CARDIOVASCULAR: S1 and S2 present. No murmurs, rubs, or gallops. PULMONARY: Chest is clear to auscultation, no wheezing or crackles. ABDOMEN: Soft, nontender, nondistended, normoactive bowel sounds. No palpable organomegaly. MUSCULOSKELETAL: No joint swelling or deformity. EXTREMITIES: No cyanosis, clubbing, or pedal edema. NEUROLOGICAL: Gross neurological examination did not reveal any focal deficits. SKIN: No rashes. - Labs CBC & Chem 7: 05/04/21 05:44 05/03/21 09:12 Labs: Abnormal Lab Results - Last 24 Hours (Table) 05/04/21 05/04/21 05/04/21 Range/Units 05:44 08:32 11:39 WBC 11.95 H (4.50-10.00) X 10*3/uL RBC 4.18 L (4.40-5.60) X 10*6/uL Hgb 12.5 L (13.0-17.0) g/dL Hct 38.0 L (39.6-50.0) % Immature Gran # 0.07 H (0.00-0.04) X 10*3/uL Neutrophils # 8.07 H (1.80-7.70) X 10*3/uL Monocytes # 1.06 H (0.20-1.00) X 10*3/uL POC Glucose (mg/dL) 117 H 185 H (75-99) mg/dL Assessment and Plan Assessment: 1. Postoperative leg pain and numbness - Patient underwent recent back surgery at the level of L4-L5 on 04/24/2021; patient reports postsurgical improvement in symptoms followed by worsening - Patient was found to have urinary retention in ED and a Guzmán catheter has been placed - Orthopedic surgery is consulted and recommendations are pending 2. Right leg pain; suspicion of peripheral vascular disease; patient is recommended arterial Doppler study; no vascular surgical intervention is recommended 3. Hypertension; Vasotec 20 mg daily; Coreg 6.25 mg twice a day 4. Diabetes mellitus, controlled with insulin ; we will continue with Lantus 20 units subcu daily and continue to monitor Accu-Cheks every 6 hours as with insulin sliding scale 5. COPD/asthma; not in exacerbation; albuterol inhaler 4 times a day when necessary, Spiriva 18 MCG daily DVT prophylaxis; SCDs CODE STATUS; full code
--- NOTE | 2021-05-07 15:38 | P.PN ---
Subjective Progress Note Date: 05/05/21 Principal diagnosis: Postoperative L2 to L4 compression/right lower extremity weakness and radiculopathy 51-year-old male to the ER today for evaluation. Patient presents today for evaluation regards to postoperative back pain. Patient coming in for increased weakness over the past week. He denies any other significant complaints. Patient states his right leg weakness that is been an issue. No recent loss of bowel or bladder. No new trauma at home. No fevers; in the ED patient was found to have distended bladder with urinary retention; Guzmán catheter was placed resulting in large amount of urine output, 500 mL was obtained In the ED patient underwent CT of the lumbar spine which revealed interval improvement in previously identified yet attenuation within the spinal cord; postop changes are seen with some fluid attenuation along the level of sore as on right side which could be inflammatory; vascular surgery and orthopedic surgery is consulted and recommending MRI of the spine and arterial Doppler MRI of the spine completed reveals postoperative fluid collection L2 to L4 with compressive properties resulting in increasing right lower extremity weakness and radiculopathy with urinary retention; immediate irrigation and debridement of lumbar spine with fluid evacuation is recommended Patient is medically cleared to proceed with surgery 05/04/2021 Patient is seen and evaluated post surgery; status post incision and debridement of skin, soft tissue and bone lumbar spine Vital signs are reviewed and remained stable; lab review shows WBC 11.9, hemoglobin 12.5 and platelet count of 381, chemical profile revealed sodium 134, potassium 4.4, BUN/creatinine of 18/0.74 Patient has been evaluated by urology and urinary retention deemed related to nerve impingement; urology recommending to start patient on Flomax 0.4 mg daily with plans to have a void trial in 48 hours 05/05/2021 Patient is seen and evaluated sitting up in bedside chair; multiple family members are present in the room; patient and family report improvement in weakness since surgery; reported working with physical therapy morning Vital signs are reviewed with temperature 98.4, pulse 66, respiration 12 and blood pressure 136/66 Surgery on board Objective - Vital Signs Vital signs: Vital Signs Temp 98.4 F 05/05/21 07:00 Pulse 66 05/05/21 10:58 Resp 12 05/05/21 07:00 BP 136/66 05/05/21 07:00 Pulse Ox 97 05/05/21 07:00 Intake & Output 05/04/21 05/05/21 05/05/21 18:59 06:59 18:59 Intake Total 180 354 Output Total 2600 3950 815 Balance -9726 -0270 -469 Intake: Oral 180 354 Output: Drainage 60 55 Back 0 Lower Back 60 55 Urine 2600 3890 760 Other: Voiding Method Indwelling Catheter Indwelling Catheter # Voids 1 - Exam GENERAL: The patient is alert and oriented x3, not in any acute distress. Well developed, well nourished. HEENT: Pupils are round and equally reacting to light. EOMI. No scleral icterus. No conjunctival pallor. Normocephalic, atraumatic. No pharyngeal erythema. No thyromegaly. CARDIOVASCULAR: S1 and S2 present. No murmurs, rubs, or gallops. PULMONARY: Chest is clear to auscultation, no wheezing or crackles. ABDOMEN: Soft, nontender, nondistended, normoactive bowel sounds. No palpable organomegaly. MUSCULOSKELETAL: No joint swelling or deformity. EXTREMITIES: No cyanosis, clubbing, or pedal edema. NEUROLOGICAL: Gross neurological examination did not reveal any focal deficits. SKIN: No rashes. - Labs CBC & Chem 7: 05/04/21 05:44 05/03/21 09:12 Labs: Abnormal Lab Results - Last 24 Hours (Table) 05/04/21 05/04/21 05/05/21 Range/Units 17:33 20:12 07:07 POC Glucose (mg/dL) 155 H 146 H 114 H (75-99) mg/dL 05/05/21 Range/Units 12:03 POC Glucose (mg/dL) 112 H (75-99) mg/dL Assessment and Plan Assessment: 1. Postoperative leg pain and numbness - Patient underwent recent back surgery at the level of L4-L5 on 04/24/2021; patient reports postsurgical improvement in symptoms followed by worsening - Patient was found to have urinary retention in ED and a Guzmán catheter has been placed - Orthopedic surgery is consulted and recommendations are pending 2. Right leg pain; suspicion of peripheral vascular disease; patient is recommended arterial Doppler study; no vascular surgical intervention is recommended 3. Hypertension; Vasotec 20 mg daily; Coreg 6.25 mg twice a day 4. Diabetes mellitus, controlled with insulin ; we will continue with Lantus 20 units subcu daily and continue to monitor Accu-Cheks every 6 hours as with insulin sliding scale 5. COPD/asthma; not in exacerbation; albuterol inhaler 4 times a day when necessary, Spiriva 18 MCG daily DVT prophylaxis; SCDs CODE STATUS; full code
[2021-05-07] MEDS: GABAPENTIN 300 MG CAP PO SCH ×2 (16:18→19:20)
[2021-05-07 17:29] LABS: Glucose,Whole Blood 110 mg/dL (75-99)
--- NOTE | 2021-05-07 17:39 | P.PN ---
Subjective Progress Note Date: 05/06/21 Principal diagnosis: Postoperative L2 to L4 compression/right lower extremity weakness and radiculopathy 51-year-old male to the ER today for evaluation. Patient presents today for evaluation regards to postoperative back pain. Patient coming in for increased weakness over the past week. He denies any other significant complaints. Patient states his right leg weakness that is been an issue. No recent loss of bowel or bladder. No new trauma at home. No fevers; in the ED patient was found to have distended bladder with urinary retention; Guzmán catheter was placed resulting in large amount of urine output, 500 mL was obtained In the ED patient underwent CT of the lumbar spine which revealed interval improvement in previously identified yet attenuation within the spinal cord; postop changes are seen with some fluid attenuation along the level of sore as on right side which could be inflammatory; vascular surgery and orthopedic surgery is consulted and recommending MRI of the spine and arterial Doppler MRI of the spine completed reveals postoperative fluid collection L2 to L4 with compressive properties resulting in increasing right lower extremity weakness and radiculopathy with urinary retention; immediate irrigation and debridement of lumbar spine with fluid evacuation is recommended Patient is medically cleared to proceed with surgery 05/04/2021 Patient is seen and evaluated post surgery; status post incision and debridement of skin, soft tissue and bone lumbar spine Vital signs are reviewed and remained stable; lab review shows WBC 11.9, hemoglobin 12.5 and platelet count of 381, chemical profile revealed sodium 134, potassium 4.4, BUN/creatinine of 18/0.74 Patient has been evaluated by urology and urinary retention deemed related to nerve impingement; urology recommending to start patient on Flomax 0.4 mg daily with plans to have a void trial in 48 hours 05/05/2021 Patient is seen and evaluated sitting up in bedside chair; multiple family members are present in the room; patient and family report improvement in weakness since surgery; reported working with physical therapy morning Vital signs are reviewed with temperature 98.4, pulse 66, respiration 12 and blood pressure 136/66 Surgery on board 05/06/2021 Patient is seen and evaluated sitting up in bed; reports improvement in lower extremity weakness Vital signs are reviewed and are stable Urology recommending to continue with Guzmán catheter with possible trial of void in next 24-48 hrs. Objective - Vital Signs Vital signs: Vital Signs Temp 98.2 F 05/06/21 15:00 Pulse 88 10/23/21 15:00 Resp 16 05/06/21 15:00 BP 118/73 05/06/21 15:00 Pulse Ox 97 05/06/21 15:00 Intake & Output 05/05/21 05/06/21 05/06/21 18:59 06:59 18:59 Intake Total 354 Output Total 2915 3460 Balance -2561 -3460 Intake: Oral 354 Output: Drainage 55 60 Lower Back 55 60 Urine 2860 3400 Other: Voiding Method Indwelling Catheter Indwelling Catheter Toilet Urinal - Exam GENERAL: The patient is alert and oriented x3, not in any acute distress. Well developed, well nourished. HEENT: Pupils are round and equally reacting to light. EOMI. No scleral icterus. No conjunctival pallor. Normocephalic, atraumatic. No pharyngeal erythema. No thyromegaly. CARDIOVASCULAR: S1 and S2 present. No murmurs, rubs, or gallops. PULMONARY: Chest is clear to auscultation, no wheezing or crackles. ABDOMEN: Soft, nontender, nondistended, normoactive bowel sounds. No palpable organomegaly. MUSCULOSKELETAL: No joint swelling or deformity. EXTREMITIES: No cyanosis, clubbing, or pedal edema. NEUROLOGICAL: Gross neurological examination did not reveal any focal deficits. SKIN: No rashes. - Labs CBC & Chem 7: 05/04/21 05:44 05/03/21 09:12 Labs: Abnormal Lab Results - Last 24 Hours (Table) 05/05/21 05/05/21 05/06/21 Range/Units 17:05 20:25 06:57 POC Glucose (mg/dL) 109 H 117 H 111 H (75-99) mg/dL 05/06/21 Range/Units 12:01 POC Glucose (mg/dL) 127 H (75-99) mg/dL Assessment and Plan Assessment: 1. Postoperative leg pain and numbness - Patient underwent recent back surgery at the level of L4-L5 on 04/24/2021; patient reports postsurgical improvement in symptoms followed by worsening - Patient was found to have urinary retention in ED and a Guzmán catheter has been placed - Orthopedic surgery is consulted and recommendations are pending 2. Right leg pain; suspicion of peripheral vascular disease; patient is recommended arterial Doppler study; no vascular surgical intervention is recommended 3. Hypertension; Vasotec 20 mg daily; Coreg 6.25 mg twice a day 4. Diabetes mellitus, controlled with insulin ; we will continue with Lantus 20 units subcu daily and continue to monitor Accu-Cheks every 6 hours as with insulin sliding scale 5. COPD/asthma; not in exacerbation; albuterol inhaler 4 times a day when necessary, Spiriva 18 MCG daily DVT prophylaxis; SCDs CODE STATUS; full code
--- NOTE | 2021-05-07 17:41 | P.PN ---
Subjective Progress Note Date: 05/07/21 Principal diagnosis: Postoperative L2 to L4 compression/right lower extremity weakness and radiculopathy 51-year-old male to the ER today for evaluation. Patient presents today for evaluation regards to postoperative back pain. Patient coming in for increased weakness over the past week. He denies any other significant complaints. Patient states his right leg weakness that is been an issue. No recent loss of bowel or bladder. No new trauma at home. No fevers; in the ED patient was found to have distended bladder with urinary retention; Guzmán catheter was placed resulting in large amount of urine output, 500 mL was obtained In the ED patient underwent CT of the lumbar spine which revealed interval improvement in previously identified yet attenuation within the spinal cord; postop changes are seen with some fluid attenuation along the level of sore as on right side which could be inflammatory; vascular surgery and orthopedic surgery is consulted and recommending MRI of the spine and arterial Doppler MRI of the spine completed reveals postoperative fluid collection L2 to L4 with compressive properties resulting in increasing right lower extremity weakness and radiculopathy with urinary retention; immediate irrigation and debridement of lumbar spine with fluid evacuation is recommended Patient is medically cleared to proceed with surgery 05/04/2021 Patient is seen and evaluated post surgery; status post incision and debridement of skin, soft tissue and bone lumbar spine Vital signs are reviewed and remained stable; lab review shows WBC 11.9, hemoglobin 12.5 and platelet count of 381, chemical profile revealed sodium 134, potassium 4.4, BUN/creatinine of 18/0.74 Patient has been evaluated by urology and urinary retention deemed related to nerve impingement; urology recommending to start patient on Flomax 0.4 mg daily with plans to have a void trial in 48 hours 05/05/2021 Patient is seen and evaluated sitting up in bedside chair; multiple family members are present in the room; patient and family report improvement in weakness since surgery; reported working with physical therapy morning Vital signs are reviewed with temperature 98.4, pulse 66, respiration 12 and blood pressure 136/66 Surgery on board 05/06/2021 Patient is seen and evaluated sitting up in bed; reports improvement in lower extremity weakness Vital signs are reviewed and are stable Urology recommending to continue with Guzmán catheter with possible trial of void in next 24-48 hrs. 05/07/2021 Patient is seen and evaluated with multiple family members at bedside; patient reports he has been cleared by orthopedic surgery for discharge; reports improved pain control and improved movement and right leg; Guzmán catheter is discontinued and patient has been able to urinate with low postvoid residuals Vital signs are stable with a temperature of 98.4, pulse 88, respirations 17 and blood pressure 143/84 Patient has been cleared orthopedic surgery for discharge with plans to continue with outpatient PT/OT; patient will follow-up with urology as an outpatient Objective - Vital Signs Vital signs: Vital Signs Temp 98.6 F 05/07/21 16:00 Pulse 89 05/07/21 16:00 Resp 17 05/07/21 16:00 BP 100/56 05/07/21 16:00 Pulse Ox 97 05/07/21 16:00 Intake & Output 05/06/21 05/07/21 05/07/21 18:59 06:59 18:59 Output Total 254 Balance -254 Output: Post Void Residual 254 Other: Voiding Method Toilet Toilet Toilet Urinal Urinal Urinal # Voids 2 - Exam GENERAL: The patient is alert and oriented x3, not in any acute distress. Well developed, well nourished. HEENT: Pupils are round and equally reacting to light. EOMI. No scleral icterus. No conjunctival pallor. Normocephalic, atraumatic. No pharyngeal erythema. No thyromegaly. CARDIOVASCULAR: S1 and S2 present. No murmurs, rubs, or gallops. PULMONARY: Chest is clear to auscultation, no wheezing or crackles. ABDOMEN: Soft, nontender, nondistended, normoactive bowel sounds. No palpable organomegaly. MUSCULOSKELETAL: No joint swelling or deformity. EXTREMITIES: No cyanosis, clubbing, or pedal edema. NEUROLOGICAL: Gross neurological examination did not reveal any focal deficits. SKIN: No rashes. - Labs CBC & Chem 7: 05/04/21 05:44 05/03/21 09:12 Labs: Abnormal Lab Results - Last 24 Hours (Table) 05/06/21 05/07/21 05/07/21 Range/Units 20:58 07:24 12:03 POC Glucose (mg/dL) 114 H 155 H 115 H (75-99) mg/dL 05/07/21 Range/Units 17:26 POC Glucose (mg/dL) 110 H (75-99) mg/dL Assessment and Plan Assessment: 1. Postoperative leg pain and numbness - Patient underwent recent back surgery at the level of L4-L5 on 04/24/2021; patient reports postsurgical improvement in symptoms followed by worsening - Patient was found to have urinary retention in ED and a Guzmán catheter has been placed - Orthopedic surgery is consulted and recommendations are pending 2. Right leg pain; suspicion of peripheral vascular disease; patient is recommended arterial Doppler study; no vascular surgical intervention is recommended 3. Hypertension; Vasotec 20 mg daily; Coreg 6.25 mg twice a day 4. Diabetes mellitus, controlled with insulin ; we will continue with Lantus 20 units subcu daily and continue to monitor Accu-Cheks every 6 hours as with insulin sliding scale 5. COPD/asthma; not in exacerbation; albuterol inhaler 4 times a day when necessary, Spiriva 18 MCG daily DVT prophylaxis; SCDs CODE STATUS; full code
[2021-05-07 19:53] VITALS: BP 134/86; PULSE 98; RESP 16; TEMP 98.8
== END 2021-05-07 19:50 | disposition left against medical advice (07) | DRG 909 ==
LOC: EC 21:10 → 6NMEDSUR 23:02 → OBSVTOIN 05-03 15:45
PROVIDERS: ADMIT Hospitalist; ATTEND Hospitalist
PROC: 0QB00ZZ Excision of Lumbar Vertebra, Open Approach (ICD-10-PCS; principal; 2021-05-04)
PROC: 0QD00ZZ Extraction of Lumbar Vertebra, Open Approach (ICD-10-PCS; 2021-05-04)
PROC: 0J970ZX Drainage of Back Subcutaneous Tissue and Fascia, Open Approach, Diagnostic (ICD-10-PCS; 2021-05-04)
PROC: 8E0WXBG Computer Assisted Procedure of Trunk Region, With Computerized Tomography (ICD-10-PCS; 2021-05-04)
DX: M96.842 Postprocedural seroma of a musculoskeletal structure following a musculoskeletal system procedure (principal); E11.9 Type 2 diabetes mellitus without complications; J44.9 Chronic obstructive pulmonary disease, unspecified; M43.16 Spondylolisthesis, lumbar region; M51.16 Intervertebral disc disorders with radiculopathy, lumbar region; G89.29 Other chronic pain; I10 Essential (primary) hypertension; K59.00 Constipation, unspecified; R33.8 Other retention of urine; N31.9 Neuromuscular dysfunction of bladder, unspecified; R53.1 Weakness; Z20.822 Contact with and (suspected) exposure to COVID-19; Z79.4 Long term (current) use of insulin; Z79.899 Other long term (current) drug therapy; Z98.1 Arthrodesis status; Z88.5 Allergy status to narcotic agent; Z88.2 Allergy status to sulfonamides; Z87.19 Personal history of other diseases of the digestive system
CPT/HCPCS: 51702; 72131; 72146; 72148; 80048; 80053; 81003; 83735; 84100; 84484; 85025; 85610; 85730; 86850; 86900; 86901; 87635; 94640; 99285

== ENCOUNTER 2022-04-19 13:03 | Emergency (ER) | payer MEDICARE, OTHER ==
[2022-04-19 13:45] VITALS: TEMP 98
[2022-04-19] MEDS ORDERED: NEOMYCIN-BACITRACIN-POLY OINT 14 GM TUBE TOPICAL STA (15:26)
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
[2022-04-19 16:30] VITALS: BP 142/89; PULSE 83; RESP 18
== END 2022-04-19 16:24 | disposition home or self-care (01) ==
LOC: EC 13:03
DX: T25.222A Burn of second degree of left foot, initial encounter (principal); T25.221A Burn of second degree of right foot, initial encounter; T23.172A Burn of first degree of left wrist, initial encounter; T23.171A Burn of first degree of right wrist, initial encounter; T31.0 Burns involving less than 10% of body surface; E11.9 Type 2 diabetes mellitus without complications; I10 Essential (primary) hypertension; F17.200 Nicotine dependence, unspecified, uncomplicated; Z79.4 Long term (current) use of insulin; Z88.2 Allergy status to sulfonamides; Z88.5 Allergy status to narcotic agent
CPT/HCPCS: 16020; 99283

== ENCOUNTER 2023-10-01 01:36 | Emergency (ER) | payer MEDICARE, OTHER ==
[2023-10-01 02:12] LABS: Basophils % (A) 1 %; Eosinophils # (A) 0.2 k/uL (0-0.7); Eosinophils % (A) 2 %; HCT 46.3 % (39.0-53.0); HGB 16.6 gm/dL (13.0-17.5); Lymphocytes # (A) 1.2 k/uL (1.0-4.8); Lymphocytes % (A) 17 %; MCH 31.7 pg (25.0-35.0); MCHC 35.8 g/dL (31.0-37.0); MCV 88.5 fL (80.0-100.0); Mean Platelet Volume 8.4; Monocytes # (A) 0.7 k/uL (0-1.0); Monocytes % (A) 10 %; Neutrophils # (A) 5.1 k/uL (1.3-7.7); Neutrophils % (A) 69 %; Platelet Count 190 k/uL (150-450); RBC 5.23 m/uL (4.30-5.90); RDW 13.2 % (11.5-15.5); WBC 7.3 k/uL (3.8-10.6)
[2023-10-01 02:24] LABS: ALT 29 U/L (4-49); AST 25 U/L (17-59); African American GFR (CKD) >90 (>60 ml/min/1.73 sqM); Albumin 4.2 g/dL (3.5-5.0); Alkaline Phosphatase 90 U/L (38-126); Anion Gap 8 mmol/L; Blood Urea Nitrogen 12 mg/dL (9-20); Carbon Dioxide 21 mmol/L (22-30); Chloride 107 mmol/L (98-107); Glucose 90 mg/dL (74-99); Magnesium 1.7 mg/dL (1.6-2.3); Non-African American GFR(CKD) 86 (>60 ml/min/1.73 sqM); Sodium 136 mmol/L (137-145); Total Bilirubin 0.5 mg/dL (0.2-1.3); Total Protein 6.8 g/dL (6.3-8.2)
[2023-10-01 02:28] LABS: INR 0.9 (<1.2); Partial Thromboplastin Time 28.4 sec (22.0-30.0); Prothrombin Time 10.4 sec (10.0-12.5)
--- NOTE | 2023-10-01 02:41 | ED ---
Chest Pain HPI - General Chief Complaint: Chest Pain Stated Complaint: Chest Pain, Left Arm Pain, Sore throat Time Seen by Provider: 10/01/23 02:33 Source: patient Mode of arrival: ambulatory Limitations: no limitations - History of Present Illness Initial Comments: Patient is a 53-year-old man who presents having chest pain that started approximately 24 hours ago. Pain is aching. He does have some pain in the left shoulder/arm as well. Patient also complaining of mild headache and bodyaches. No anginal symptoms, no dyspnea, diaphoresis, nausea vomiting, palpitations or syncope. MD Complaint: chest pain Onset/Timin -: hour(s) Onset: during rest Pain Location: substernal Pain Radiation: LUE Severity: moderate Quality: aching Consistency: constant Improves With: nothing Worsens With: nothing Treatments Prior to Arrival: none - Related Data Home Medications Medication Instructions Recorded Confirmed Albuterol Sulfate [Ventolin HFA] 2 puff INHALATION RT-QID PRN 04/24/21 05/01/21 Atorvastatin [Lipitor] 10 mg PO DAILY 04/24/21 05/01/21 Enalapril [Vasotec] 20 mg PO DAILY 04/24/21 05/01/21 INSULIN ASPART (NovoLOG) [NovoLOG See Protocol SQ ACHS 04/24/21 05/01/21 (formulary)] Insulin Glargine [Lantus Vial] 20 unit SQ DAILY 04/24/21 05/01/21 Tiotropium 18 Mcg/Puff [Spiriva] 1 puff INHALATION RT-DAILY 04/24/21 05/01/21 carvediloL [Coreg] 6.25 mg PO BID 04/24/21 05/01/21 hydrOXYzine pamoate 25 mg PO HS PRN 04/24/21 05/01/21 Sennosides/Docusate Sodium [Senna 1 tab PO BID PRN 05/01/21 05/01/21 Plus 8.6-50 mg Softgel] Previous Rx's Medication Instructions Recorded Cyclobenzaprine [Flexeril] 10 mg PO TID PRN #40 tab 04/28/21 Docusate [Colace] 100 mg PO BID PRN #30 04/28/21 Gabapentin 300 mg PO TID 30 Days #90 cap 04/28/21 HYDROcodone/APAP 10-325MG [[facility] 1 - 2 tab PO Q4HR PRN #56 tab 04/28/21 10-325] cefaDROXiL [Duricef] 500 mg PO Q12HR 5 Days #10 cap 04/28/21 Cyclobenzaprine [Flexeril] 10 mg PO TID #40 tab 05/07/21 Gabapentin 300 mg PO TID #90 cap 05/07/21 HYDROcodone/APAP 10-325MG [[facility] 1 tab PO Q4HR PRN 3 Days #18 tab 05/07/21 10-325] cefaDROXiL [Duricef] 500 mg PO Q12HR #20 cap 05/07/21 Bacitracin Zinc/Polymyxin B 1 applic TOPICAL BID #90 gm 04/19/22 [Bacitracin-Polymyxin Ointment] Oseltamivir [Tamiflu] 75 mg PO Q12HR #10 cap 10/01/23 Allergies Allergy/AdvReac Type Severity Reaction Status Date / Time Sulfa (Sulfonamide Allergy Rash/Hives Verified 10/01/23 01:45 Antibiotics) hydrocodone [From [facility]] AdvReac Nausea & Verified 10/01/23 01:45 Vomiting Review of Systems ROS Statement: Those systems with pertinent positive or pertinent negative responses have been documented in the HPI. ROS Other: All systems not noted in ROS Statement are negative. Constitutional: Denies: fever Respiratory: Reports: cough. Denies: dyspnea Cardiovascular: Reports: chest pain. Denies: palpitations, edema, syncope Gastrointestinal: Denies: abdominal pain, nausea, vomiting, diarrhea Genitourinary: Denies: dysuria, hematuria Musculoskeletal: Denies: back pain Skin: Denies: rash Neurological: Denies: headache, weakness, numbness EKG Findings - EKG Results: EKG: interpreted by ERMD, sinus rhythm, normal axis, normal QRS, normal ST/T, no acute changes EKG shows: tachycardia (Rate 105 bpm) Past Medical History Past Medical History: Chest Pain / Angina, Diabetes Mellitus, Hypertension Additional Past Medical History / Comment(s): lower back pain History of Any Multi-Drug Resistant Organisms: None Reported Past Surgical History: Hernia Repair, Orthopedic Surgery Additional Past Surgical History / Comment(s): toe surg /ingrown toenails removed on bilaeral big toes, cervical fusion; pain procedures, spinal surgery Past Anesthesia/Blood Transfusion Reactions: No Reported Reaction Past Psychological History: Anxiety, Depression Smoking Status: Current every day smoker Past Alcohol Use History: Rare Past Drug Use History: None Reported - Past Family History Father Family Medical History: Cancer Additional Family Medical History / Comment(s): colon cancer Mother Family Medical History: Cancer Additional Family Medical History / Comment(s): brain cancer Brother(s) Family Medical History: Diabetes Mellitus Additional Family Medical History / Comment(s): pt. states his brother from complications related to diabetes Sister(s) Family Medical History: Cancer Additional Family Medical History / Comment(s): pts. younger sister has breast cancer General Exam Limitations: no limitations General appearance: alert, in no apparent distress Head exam: Present: atraumatic, normocephalic Eye exam: Present: normal appearance. Absent: scleral icterus, conjunctival injection Neck exam: Present: normal inspection Respiratory exam: Present: normal lung sounds bilaterally. Absent: respiratory distress, wheezes, rales, rhonchi, stridor, chest wall tenderness, accessory muscle use Cardiovascular Exam: Present: regular rate, normal rhythm, normal heart sounds. Absent: systolic murmur, diastolic murmur, rubs, gallop GI/Abdominal exam: Present: soft. Absent: distended, tenderness, guarding, rebound, rigid, mass Extremities exam: Present: normal inspection, normal capillary refill. Absent: pedal edema, calf tenderness Back exam: Present: normal inspection. Absent: CVA tenderness (R), CVA tenderness (L) Neurological exam: Present: alert Skin exam: Present: warm, dry, intact, normal color. Absent: rash Course Vital Signs 10/01/23 10/01/23 10/01/23 01:41 03:00 03:09 Temperature 98 F Pulse Rate 109 H 91 96 Respiratory 20 Rate Blood Pressure 143/91 O2 Sat by Pulse 95 Oximetry 10/01/23 10/01/23 04:21 05:51 Temperature 98.2 F Pulse Rate 112 H 93 Respiratory 18 22 Rate Blood Pressure 136/93 120/74 O2 Sat by Pulse 95 94 L Oximetry Chest Pain MDM - MDM The patient had chest x-ray that I interpreted as negative for acute infiltrate, pneumothorax, congestive heart failure Was pt. sent in by a medical professional or institution (, PA, CARBOY FILLER, urgent care, hospital, or residential...) When possible be specific @ -[No] Did you speak to anyone other than the patient for history (EMS, parent, family, police, friend...)? What history was obtained from this source @ -[No] Did you review nursing and triage notes (agree or disagree)? Why? @ -[I reviewed and agree with nursing and triage notes] Were old charts reviewed (outside hosp., previous admission, EMS record, old EK G, old radiological studies, urgent care reports/EKG's, residential records)? Report findings @ -[No old charts were reviewed] Differential Diagnosis (chest pain, altered mental status, abdominal pain women, abdominal pain men, vaginal bleeding, weakness, fever, dyspnea, syncope, headache, dizziness, GI bleed, back pain, seizure, CVA, palpatations, mental health, musculoskeletal)? @ -[Differential Chest Pain: Stable Angina, Unstable Angina, STEMI, NSTEMI Aortic Dissection, Pneumothorax, Musculoskeletal, Esophageal Spasm GERD, Cholecystitis, Pancreatitis, Zoster, this is not meant to be an all-inclusive list. EKG interpreted by me (3pts min.). @ -[I interpreted as above] X-rays interpreted by me (1pt min.). @ -I interpreted as above CT interpreted by me (1pt min.). @ -[None done] U/S interpreted by me (1pt. min.). @ -[None done] What testing was considered but not performed or refused? (CT, X-rays, U/S, labs)? Why? @ -[None] What meds were considered but not given or refused? Why? @ -[None] Did you discuss the management of the patient with other professionals (professionals i.e. , PA, CARBOY FILLER, lab, RT, psych nurse, social research assistant, fireperson, teacher, correctional probation officer, supportive employment case manager)? Give summary @ -[No] Was smoking cessation discussed for >3mins.? @ -[No] Was critical care preformed (if so, how long)? @ -[No] Were there social determinants of health that impacted care today? How? (Homelessness, low income, unemployed, alcoholism, drug addiction, transportation, low edu. Level, literacy, decrease access to med. care, fpc, rehab)? @ -[No] Was there de-escalation of care discussed even if they declined (Discuss DNR or withdrawal of care, Hospice)? DNR status @ -[No] What co-morbidities impacted this encounter? (DM, HTN, Smoking, COPD, CAD, Cancer, CVA, ARF, Chemo, Hep., AIDS, mental health diagnosis, sleep apnea, morbid obesity)? @ -[None] Was patient admitted / discharged? Hospital course, mention meds given and route, prescriptions, significant lab abnormalities, going to OR and other pertinent info. @ -[Patient is 53-year-old man presenting with chest pain. The patient does test positive for influenza. Given the duration of symptoms it is safe to discharge patient with only 1 troponin. We discussed appropriate further care and follow-up as well as return parameters. Undiagnosed new problem with uncertain prognosis? @ -[No] Drug Therapy requiring intensive monitoring for toxicity (Heparin, Nitro, Insulin, Cardizem)? @ -[No] Were any procedures done? @ -[No] Diagnosis/symptom? @ -[Acute influenza Acute chest pain Acute, or Chronic, or Acute on Chronic? @ -[Acute Uncomplicated (without systemic symptoms) or Complicated (systemic symptoms)? @ -Uncomplicated Side effects of treatment? @ -[No] Exacerbation, Progression, or Severe Exacerbation? @ -[No] Poses a threat to life or bodily function? How? (Chest pain, USA, [place], pneumonia, PE, COPD, DKA, ARF, appy, cholecystitis, CVA, Diverticulitis, Homicidal, Suicidal, threat to staff... and all critical care pts) @ -[No] Disposition Clinical Impression: Chest pain, Influenza A Disposition: HOME SELF-CARE Condition: Good Instructions (If sedation given, give patient instructions): Influenza (DC) Prescriptions: Oseltamivir [Tamiflu] 75 mg PO Q12HR #10 cap Is patient prescribed a controlled substance at d/c from ED?: No Referrals: Savana Tejada MD [Primary Care Provider] - 1-2 days
[2023-10-01] MEDS: ALBUTEROL NEBULIZED 2.5 MG/3 ML INHALATION STA (02:59)
--- NOTE | 2023-10-01 05:00 | XR ---
EXAM: XR Chest, 2 Views CLINICAL HISTORY: ITS.REASON XR Reason: Chest Pain TECHNIQUE: Frontal and lateral views of the chest. COMPARISON: No relevant prior studies available. IMPRESSION: No acute cardiopulmonary abnormality.
[2023-10-01 06:06] VITALS: BP 120/74; PULSE 93; RESP 22; TEMP 98.2
== END 2023-10-01 05:51 | disposition home or self-care (01) ==
LOC: EC 01:36
DX: J10.1 Influenza due to other identified influenza virus with other respiratory manifestations (principal); F17.200 Nicotine dependence, unspecified, uncomplicated; Z88.2 Allergy status to sulfonamides; Z88.5 Allergy status to narcotic agent
CPT/HCPCS: 36415; 71046; 80053; 83735; 84484; 85025; 85610; 85730; 87636; 93005; 94640; 99285

== ENCOUNTER 2024-02-18 11:15 | Emergency (ER) | payer MEDICARE, OTHER ==
[2024-02-18] MEDS ORDERED: KETOROLAC 15 MG/ML 1 ML VIAL ONE (12:24)
[2024-02-18] MEDS ORDERED: HYDROmorphone 0.5 MG/0.5 ML SYRINGE ONE (12:24)
[2024-02-18] MEDS ORDERED: ORPHENADRINE 30 MG/ML 2 ML VIAL ONE (12:26)
== END 2024-02-18 13:07 | disposition home or self-care (01) ==
LOC: EC 11:15
DX: S16.1XXA Strain of muscle, fascia and tendon at neck level, initial encounter (principal); F17.290 Nicotine dependence, other tobacco product, uncomplicated; X50.9XXA Other and unspecified overexertion or strenuous movements or postures, initial encounter
CPT/HCPCS: 99283; 96372; J2360; J1885; J1170

== ENCOUNTER 2024-04-20 15:44 | Emergency (ER) | payer MEDICARE, OTHER ==
[2024-04-20 15:48] VITALS: RESP 18; TEMP 97.7
--- NOTE | 2024-04-20 15:58 | ED ---
ENT HPI - General Chief complaint: ENT Stated complaint: Earache, loss of hearing Time Seen by Provider: 04/20/24 15:55 Source: patient, RN notes reviewed Mode of arrival: ambulatory Limitations: no limitations - History of Present Illness Initial comments: This is a 54-year-old male presents emergency room for chief complaint of left ear pain. Patient dates that approximately a week ago he was experiencing bilateral ear pain where he was diagnosed with an ear infection at urgent care and started on azithromycin due to allergy to amoxicillin. States over the past week the right ear has been improving however the left ear he has experienced a muffled hearing and pain to the left ear. He completed a azithromycin yesterday. Denies fevers, chills, nausea, vomiting, mastoid tenderness, jaw tenderness. No other acute complaints at this time - Related Data Home Medications Medication Instructions Recorded Confirmed Albuterol Sulfate [Ventolin HFA] 2 puff INHALATION RT-QID PRN 04/24/21 05/01/21 Atorvastatin [Lipitor] 10 mg PO DAILY 04/24/21 05/01/21 Enalapril [Vasotec] 20 mg PO DAILY 04/24/21 05/01/21 INSULIN ASPART (NovoLOG) [NovoLOG See Protocol SQ ACHS 04/24/21 05/01/21 (formulary)] Insulin Glargine [Lantus Vial] 20 unit SQ DAILY 04/24/21 05/01/21 Tiotropium 18 Mcg/Puff [Spiriva] 1 puff INHALATION RT-DAILY 04/24/21 05/01/21 carvediloL [Coreg] 6.25 mg PO BID 04/24/21 05/01/21 hydrOXYzine pamoate 25 mg PO HS PRN 04/24/21 05/01/21 Sennosides/Docusate Sodium [Senna 1 tab PO BID PRN 05/01/21 05/01/21 Plus 8.6-50 mg Softgel] Previous Rx's Medication Instructions Recorded Cyclobenzaprine [Flexeril] 10 mg PO TID PRN #40 tab 04/28/21 Docusate [Colace] 100 mg PO BID PRN #30 04/28/21 Gabapentin 300 mg PO TID 30 Days #90 cap 04/28/21 HYDROcodone/APAP 10-325MG [[facility] 1 - 2 tab PO Q4HR PRN #56 tab 04/28/21 10-325] cefaDROXiL [Duricef] 500 mg PO Q12HR 5 Days #10 cap 04/28/21 Cyclobenzaprine [Flexeril] 10 mg PO TID #40 tab 05/07/21 Gabapentin 300 mg PO TID #90 cap 05/07/21 HYDROcodone/APAP 10-325MG [[facility] 1 tab PO Q4HR PRN 3 Days #18 tab 05/07/21 10-325] cefaDROXiL [Duricef] 500 mg PO Q12HR #20 cap 05/07/21 Bacitracin Zinc/Polymyxin B 1 applic TOPICAL BID #90 gm 04/19/22 [Bacitracin-Polymyxin Ointment] Oseltamivir [Tamiflu] 75 mg PO Q12HR #10 cap 10/01/23 clindamycin HCL 300 mg PO TID #30 cap 04/20/24 Allergies Allergy/AdvReac Type Severity Reaction Status Date / Time Sulfa (Sulfonamide Allergy Rash/Hives Verified 10/01/23 01:45 Antibiotics) amoxicillin AdvReac Nausea & Verified 04/20/24 15:49 Vomiting hydrocodone [From [facility]] AdvReac Nausea & Verified 10/01/23 01:45 Vomiting Penicillins AdvReac Nausea & Verified 04/20/24 15:49 Vomiting Review of Systems ROS Statement: Those systems with pertinent positive or pertinent negative responses have been documented in the HPI. ROS Other: All systems not noted in ROS Statement are negative. Past Medical History Past Medical History: Chest Pain / Angina, Diabetes Mellitus, Hypertension Additional Past Medical History / Comment(s): lower back pain History of Any Multi-Drug Resistant Organisms: None Reported Past Surgical History: Hernia Repair, Orthopedic Surgery Additional Past Surgical History / Comment(s): toe surg /ingrown toenails removed on bilaeral big toes, cervical fusion; pain procedures, spinal surgery Past Anesthesia/Blood Transfusion Reactions: No Reported Reaction Past Psychological History: Anxiety, Depression Smoking Status: Current every day smoker Past Alcohol Use History: Rare Past Drug Use History: None Reported - Past Family History Father Family Medical History: Cancer Additional Family Medical History / Comment(s): colon cancer Mother Family Medical History: Cancer Additional Family Medical History / Comment(s): brain cancer Brother(s) Family Medical History: Diabetes Mellitus Additional Family Medical History / Comment(s): pt. states his brother from complications related to diabetes Sister(s) Family Medical History: Cancer Additional Family Medical History / Comment(s): pts. younger sister has breast cancer General Exam Limitations: no limitations General appearance: alert, in no apparent distress Expanded TM/Canal exam: Bulging: Left TM, Effusion: Left TM, Loss of Landmarks: Left TM Neck exam: Present: normal inspection. Absent: tenderness, meningismus, lymphadenopathy Respiratory exam: Present: normal lung sounds bilaterally. Absent: respiratory distress, wheezes, rales, rhonchi, stridor Cardiovascular Exam: Present: regular rate, normal rhythm, normal heart sounds. Absent: systolic murmur, diastolic murmur, rubs, gallop, clicks GI/Abdominal exam: Present: soft, normal bowel sounds. Absent: distended, tenderness, guarding, rebound, rigid Skin exam: Present: warm, dry, intact, normal color. Absent: rash Course Vital Signs 04/20/24 04/20/24 15:45 17:08 Temperature 97.7 F Pulse Rate 85 72 Respiratory 18 18 Rate Blood Pressure 163/98 123/81 O2 Sat by Pulse 97 97 Oximetry Medical Decision Making - Medical Decision Making Was pt. sent in by a medical professional or institution ([facility], CLOU[employer] ARCHITECT, urgent care, hospital, or [facility]...) When possible be specific @ -No Did you speak to anyone other than the patient for history (EMS, parent, family, police, friend...)? What history was obtained from this source @ -No Did you review nursing and triage notes (agree or disagree)? Why? @ -I reviewed and agree with nursing and triage notes Were old charts reviewed (outside hosp., previous admission, EMS record, old EKG, old radiological studies, urgent care reports/EKG's, [facility] records)? Report findings @ -No old charts were reviewed Differential Diagnosis (chest pain, altered mental status, abdominal pain women, abdominal pain men, vaginal bleeding, weakness, fever, dyspnea, syncope, headache, dizziness, GI bleed, back pain, seizure, CVA, palpatations, mental he alth, musculoskeletal)? @ -Otitis media, otitis externa, mastoiditis, this list is not all inclusive EKG interpreted by me (3pts min.). @ -none X-rays interpreted by me (1pt min.). @ -None done CT interpreted by me (1pt min.). @ -None done U/S interpreted by me (1pt. min.). @ -None done What testing was considered but not performed or refused? (CT, X-rays, U/S, labs)? Why? @ -None What meds were considered but not given or refused? Why? @ -None Did you discuss the management of the patient with other professionals (professionals i.e. , PA, CLOUD ARCHITECT, lab, RT, psych nurse, social professionals, edge gluer, t eacher, credit risk officer, returned case inspector)? Give summary @ -No Was smoking cessation discussed for >3mins.? @ -No Was critical care preformed (if so, how long)? @ -No Were there social determinants of health that impacted care today? How? (Homelessness, low income, unemployed, alcoholism, drug addiction, transportation, low edu. Level, literacy, decrease access to med. care, senior living, rehab)? @ -No Was there de-escalation of care discussed even if they declined (Discuss DNR or withdrawal of care, Hospice)? DNR status @ -No What co-morbidities impacted this encounter? (DM, HTN, Smoking, COPD, CAD, Cance r, CVA, ARF, Chemo, Hep., AIDS, mental health diagnosis, sleep apnea, morbid obesity)? @ -None Was patient admitted / discharged? Hospital course, mention meds given and route, prescriptions, significant lab abnormalities, going to OR and other pertinent info. @ -Discharge. 54-year-old male with left ear pain. On examination patient noted to have tragal tenderness with left ear canal swelling, erythema, bulging TM with effusion. no mastoid tenderness, no fevers, chills, nausea or vomiting. Patient will be treated with oral antibiotics and topical antibiotics for otitis media and otitis externa. Discussed with Dr. Mendieta Undiagnosed new problem with uncertain prognosis? @ -No Drug Therapy requiring intensive monitoring for toxicity (Heparin, Nitro, Insulin, Cardizem)? @ -No Were any procedures done? @ -No Diagnosis/symptom? @ -Otitis media, otitis externa Acute, or Chronic, or Acute on Chronic? @ -Acute Uncomplicated (without systemic symptoms) or Complicated (systemic symptoms)? @ -Uncomplicated Side effects of treatment? @ -No Exacerbation, Progression, or Severe Exacerbation? @ -No Poses a threat to life or bodily function? How? (Chest pain, [place], [place], pneumonia, PE, COPD, DKA, ARF, appy, cholecystitis, CVA, Diverticulitis, Homicidal, Suicidal, threat to staff... and all critical care pts) @ -No Disposition Clinical Impression: Otitis media, Otitis externa Disposition: HOME SELF-CARE Condition: Good Instructions (If sedation given, give patient instructions): Swimmer's Ear (ED), Ear Infection (ED) Additional Instructions: Return the emergency department for any new or worsening symptoms. Complete full course of oral antibiotics and continue to use topical drops, Ciprodex, 4 drops in the left ear 2 times a day for 7 days. Prescriptions: clindamycin HCL 300 mg PO TID #30 cap Is patient prescribed a controlled substance at d/c from ED?: No Referrals: Savana Tejada MD [Primary Care Provider] - 1-2 days Time of Disposition: 16:26
[2024-04-20] MEDS: CIPROFLOXACIN-DEXAMETH 0.3-0.1% DROPS 7.5 ML BTL LEFT EAR STA (17:04)
[2024-04-20 17:09] VITALS: BP 123/81; PULSE 72
== END 2024-04-20 17:09 | disposition home or self-care (01) ==
LOC: EC 15:44
CPT/HCPCS: 99282

== ENCOUNTER 2024-08-06 12:02 | Emergency (ER) | payer MEDICARE, OTHER ==
[2024-08-06 12:10] VITALS: RESP 18
--- NOTE | 2024-08-06 12:22 | ED ---
Upper Extremity HPI - General Chief Complaint: Extremity Injury, Upper Stated Complaint: R wrist pain/swelling Time Seen by Provider: 08/06/24 12:18 Source: patient, RN notes reviewed Mode of arrival: ambulatory Limitations: no limitations - History of Present Illness Initial Comments: 54-year-old male presenting to the ER with chief complaint of right wrist pain x 2 months. Reports a constant dull pain in the wrist with occasional sharp pains up the forearm. 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 Denies known injury or trauma. Pain is not worse with movement. Reports right wrist swelling in the morning that improves throughout the day. Denies redness, fever, chills, vomiting. He has a history of type 2 diabetes on insulin. Denies change in symptoms over the past few days and states he chose today to come in as he had the day off. - Related Data Home Medications Medication Instructions Recorded Confirmed Albuterol Sulfate [Ventolin HFA] 2 puff INHALATION RT-QID PRN 04/24/21 05/01/21 Atorvastatin [Lipitor] 10 mg PO DAILY 04/24/21 05/01/21 Enalapril [Vasotec] 20 mg PO DAILY 04/24/21 05/01/21 INSULIN ASPART (NovoLOG) [NovoLOG See Protocol SQ ACHS 04/24/21 05/01/21 (formulary)] Insulin Glargine (Lantus) [Lantus 20 unit SQ DAILY 04/24/21 05/01/21 Vial] Tiotropium 18 Mcg/Puff [Spiriva] 1 puff INHALATION RT-DAILY 04/24/21 05/01/21 carvediloL [Coreg] 6.25 mg PO BID 04/24/21 05/01/21 hydrOXYzine pamoate 25 mg PO HS PRN 04/24/21 05/01/21 Sennosides/Docusate Sodium [Senna 1 tab PO BID PRN 05/01/21 05/01/21 Plus 8.6-50 mg Softgel] Previous Rx's Medication Instructions Recorded Cyclobenzaprine [Flexeril] 10 mg PO TID PRN #40 tab 04/28/21 Docusate [Colace] 100 mg PO BID PRN #30 04/28/21 Gabapentin 300 mg PO TID 30 Days #90 cap 04/28/21 HYDROcodone/APAP 10-325MG [[place] 1 - 2 tab PO Q4HR PRN #56 tab 04/28/21 10-325] cefaDROXiL [Duricef] 500 mg PO Q12HR 5 Days #10 cap 04/28/21 Cyclobenzaprine [Flexeril] 10 mg PO TID #40 tab 05/07/21 Gabapentin 300 mg PO TID #90 cap 05/07/21 HYDROcodone/APAP 10-325MG [[place] 1 tab PO Q4HR PRN 3 Days #18 tab 05/07/21 10-325] cefaDROXiL [Duricef] 500 mg PO Q12HR #20 cap 05/07/21 Bacitracin Zinc/Polymyxin B 1 applic TOPICAL BID #90 gm 04/19/22 [Bacitracin-Polymyxin Ointment] Oseltamivir [Tamiflu] 75 mg PO Q12HR #10 cap 10/01/23 clindamycin HCL 300 mg PO TID #30 cap 04/20/24 Allergies Allergy/AdvReac Type Severity Reaction Status Date / Time Sulfa (Sulfonamide Allergy Rash/Hives Verified 08/06/24 12:05 Antibiotics) amoxicillin AdvReac Nausea & Verified 08/06/24 12:05 Vomiting hydrocodone [From [place]] AdvReac Nausea & Verified 08/06/24 12:05 Vomiting Penicillins AdvReac Nausea & Verified 08/06/24 12:05 Vomiting Review of Systems ROS Statement: Those systems with pertinent positive or pertinent negative responses have been documented in the HPI. ROS Other: All systems not noted in ROS Statement are negative. Past Medical History Past Medical History: Chest Pain / Angina, Diabetes Mellitus, Hypertension Additional Past Medical History / Comment(s): lower back pain History of Any Multi-Drug Resistant Organisms: None Reported Past Surgical History: Hernia Repair, Orthopedic Surgery Additional Past Surgical History / Comment(s): toe surg /ingrown toenails removed on bilaeral big toes, cervical fusion; pain procedures, spinal surgery Past Anesthesia/Blood Transfusion Reactions: No Reported Reaction Past Psychological History: Anxiety, Depression Smoking Status: Current every day smoker Past Alcohol Use History: Rare Past Drug Use History: None Reported - Past Family History Father Family Medical History: Cancer Additional Family Medical History / Comment(s): colon cancer Mother Family Medical History: Cancer Additional Family Medical History / Comment(s): brain cancer Brother(s) Family Medical History: Diabetes Mellitus Additional Family Medical History / Comment(s): pt. states his brother from complications related to diabetes Sister(s) Family Medical History: Cancer Additional Family Medical History / Comment(s): pts. younger sister has breast cancer General Exam Limitations: no limitations General appearance: alert, in no apparent distress Head exam: Present: atraumatic, normocephalic, normal inspection Right Elbow exam: Present: normal inspection, full ROM. Absent: tenderness, swelling Forearm Wrist exam: Present: normal inspection, full ROM. Absent: tenderness, swelling, abrasion, laceration, deformity, dislocation, erythema, tenderness over anatomical snuff box Hand Wrist exam: Present: normal inspection, full ROM. Absent: tenderness, swelling, abrasion, erythema Vascular: Present: normal capillary refill, radial pulse. Absent: vascular compromise Neurological exam: Present: alert, oriented X3 Psychiatric exam: Present: normal affect, normal mood Skin exam: Present: warm, dry, intact, normal color. Absent: rash Course Vital Signs 08/06/24 08/06/24 12:05 13:42 Temperature 97.8 F 98.2 F Pulse Rate 87 66 Respiratory 18 18 Rate Blood Pressure 142/91 136/80 O2 Sat by Pulse 99 97 Oximetry Medical Decision Making - Medical Decision Making Was pt. sent in by a medical professional or institution ([facility], ONLINE USER EXPERIENCE STRATEGIST, urgent care, hospital, or prison...) When possible be specific @ -No Did you speak to anyone other than the patient for history (EMS, parent, family, police, friend...)? What history was obtained from this source @ -No Did you review nursing and triage notes (agree or disagree)? Why? @ -I reviewed and agree with nursing and triage notes Were old charts reviewed (outside hosp., previous admission, EMS record, old EKG, old radiological studies, urgent care reports/EKG's, prison records)? Report findings @ -No old charts were reviewed Differential Diagnosis (chest pain, altered mental status, abdominal pain women, abdominal pain men, vaginal bleeding, weakness, fever, dyspnea, syncope, headache, dizziness, GI bleed, back pain, seizure, CVA, palpatations, mental health, musculoskeletal)? @ -Differential Musculoskeletal Muscular strain, contusion, ligament sprain, fracture, arthritis, septic arthritis, bursitis, cellulitis, muscle spasm, nerve compression, DVT, arterial occlusion, herpes zoster, electrolyte abnormality, tumor.... This is not meant to be in all inclusive list EKG interpreted by me (3pts min.). @ -None X-rays interpreted by me (1pt min.). @ -X-ray right wrist reveals no acute process CT interpreted by me (1pt min.). @ -None done U/S interpreted by me (1pt. min.). @ -None done What testing was considered but not performed or refused? (CT, X-rays, U/S, labs)? Why? @ -None What meds were considered but not given or refused? Why? @ -None Did you discuss the management of the patient with other professionals (professionals i.e. , PA, ONLINE USER EXPERIENCE STRATEGIST, lab, RT, psych nurse, psych social worker, distribution systems superintendent, teacher, civilian jail officer, case supervisor)? Give summary @ -No Was smoking cessation discussed for >3mins.? @ -No Was critical care preformed (if so, how long)? @ -No Were there social determinants of health that impacted care today? How? (Homelessness, low income, unemployed, alcoholism, drug addiction, transportation, low edu. Level, literacy, decrease access to med. care, residential, re hab)? @ -No Was there de-escalation of care discussed even if they declined (Discuss DNR or withdrawal of care, Hospice)? DNR status @ -No What co-morbidities impacted this encounter? (DM, HTN, Smoking, COPD, CAD, Cancer, CVA, ARF, Chemo, Hep., AIDS, mental health diagnosis, sleep apnea, morbid obesity)? @ -None Was patient admitted / discharged? Hospital course, mention meds given and route, prescriptions, significant lab abnormalities, going to OR and other pertinent info. @ -Discharge. 54-year-old male presenting with right wrist pain x 2 months. No known injury or trauma. No sign of bacterial infection. Neurovascularly intact. X-ray right wrist revealed no acute process. Findings discussed with patient. Discussed there is no sign of emergent etiology causing symptoms today. Advised to follow-up with PCP. Appropriate turn precautions discussed. Case was discussed with my ED attending Dr. Gardner. Undiagnosed new problem with uncertain prognosis? @ -No Drug Therapy requiring intensive monitoring for toxicity (Heparin, Nitro, Insulin, Cardizem)? @ -No Were any procedures done? @ -No Diagnosis/symptom? @ -Right wrist pain Acute, or Chronic, or Acute on Chronic? @ -Acute Uncomplicated (without systemic symptoms) or Complicated (systemic symptoms)? @ -Uncomplicated Side effects of treatment? @ -No Exacerbation, Progression, or Severe Exacerbation? @ -No Poses a threat to life or bodily function? How? (Chest pain, [place], [place], pneumonia, PE, COPD, DKA, ARF, appy, cholecystitis, CVA, Diverticulitis, Homicidal, Suicidal, threat to staff... and all critical care pts) @ -No Disposition Clinical Impression: Right wrist pain Disposition: HOME SELF-CARE Condition: Stable Instructions (If sedation given, give patient instructions): Arthralgia (ED) Additional Instructions: Follow-up with PCP as discussed. Please return to the Emergency Department if symptoms worsen or any other concerns. Is patient prescribed a controlled substance at d/c from ED?: No Referrals: Savana Tejada MD [Primary Care Provider] - 1-2 days Time of Disposition: 13:36
--- NOTE | 2024-08-06 13:09 | XR ---
EXAMINATION TYPE: XR wrist complete RT DATE OF EXAM: 08/06/2024 12:54 PM COMPARISON: None CLINICAL INDICATION: Male, 54 years old with history of right wrist pain; PHH, pain TECHNIQUE: XR wrist complete RT; examined in the Frontal, navicular, lateral, and oblique. FINDINGS: No acute osseous pathology, joint dislocation, or joint effusion. No evidence of any soft tissue swelling is seen. IMPRESSION: No acute osseous pathology. [facility], , 08/06/2024 1:06 PM
[2024-08-06 13:43] VITALS: BP 136/80; PULSE 66; TEMP 98.2
== END 2024-08-06 13:43 | disposition home or self-care (01) ==
LOC: EC 12:02
DX: M25.531 Pain in right wrist (principal); F17.200 Nicotine dependence, unspecified, uncomplicated; Z88.2 Allergy status to sulfonamides; Z88.0 Allergy status to penicillin; Z88.5 Allergy status to narcotic agent
CPT/HCPCS: 99283